=== PATIENT | male | born 1955 | race Caucasian/White ===

== ENCOUNTER 2024-06-23 22:14 | Emergency (ER) | payer SELFPAY ==
[2024-06-23 22:18] VITALS: BP 166/94
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
[2024-06-24 00:50] VITALS: BP 147/91
== END 2024-06-24 00:51 | disposition home or self-care (01) ==
LOC: EMR 22:14
PROVIDERS: EMERGENCY PHYSICIAN Emergency Medicine; FAMILY PHYSICIAN Nurse Practitioner Primary Care
DX: Z04.1 Encounter for examination and observation following transport accident (principal); V89.2XXA Person injured in unspecified motor-vehicle accident, traffic, initial encounter; I10 Essential (primary) hypertension; F17.200 Nicotine dependence, unspecified, uncomplicated; G82.20 Paraplegia, unspecified; Z99.3 Dependence on wheelchair
CPT/HCPCS: 99281

== ENCOUNTER 2024-07-06 12:09 | Emergency (ER) | payer OTHER, SELFPAY ==
[2024-07-06 12:11] VITALS: BP 157/88
[2024-07-06 12:51] LABS: % Basophils 0.7 % (0-2); % Eosinophils 6.3 % (0-6); % Immature Granulocytes 0.4 % (0-0.5); % Lymphocytes 11.8 % (20.5-51.1); % Neutrophils 73.8 % (42.2-75.2); Absolute Basophils 0.1 10^3/uL (0-0.2); Absolute Eosinophils 0.5 10^3/uL (0-0.7); Absolute Monocytes 0.6 10^3/uL (0.1-0.6); Absolute Neutrophils 6.3 10^3/uL (1.4-6.5); Hematocrit 34.8 % (39.0-52.0); Mean Corp Hgb Conc. 31.6 g/dL (33.0-37.0); Mean Corpuscular Hgb 25.5 pg (27.0-31.0); Mean Corpuscular Volume 80.6 fL (80.0-94.0); Mean Platelet Volume 9.3 fL (7.4-10.4); Nucleated Red Blood Cells % 0 % (-); Platelet Count 526 10^3/uL (130-400); Red Blood Cell Count 4.32 10^6/uL (4.70-6.10); Red Cell Dist. Width 17.9 % (11.5-14.5); White Blood Cell Count 8.5 10^3/uL (4.8-10.8)
[2024-07-06 13:06] LABS: ALT (SGPT) 11 U/L (0-50); AST (SGOT) 15 U/L (17-59); Albumin 3.4 g/dl (3.5-5.0); Alkaline Phosphatase 140 U/L (38-126); Blood Urea Nitrogen 15 mg/dl (9-20); Calcium 8.9 mg/dl (8.4-10.2); Carbon Dioxide 33 mmol/L (22-30); Chloride 97 mmol/L (98-107); Glucose 172 mg/dl (70-99); Potassium 3.9 mmol/L (3.5-5.1); Sodium 136 mmol/L (135-145); Total Bilirubin 0.6 mg/dl (0.2-1.3); Total Protein 6.5 g/dl (6.3-8.2); eGFR > 60.00
--- NOTE | 2024-07-06 14:34 | ED.GENMED ---
History of Present Illness
<Zohreh Correa PA-C - Last Filed: 07/06/24 22:50>
General
Chief Complaint: Musculo-Skeletal Complaint
Source: patient and family (Patient's nephew at bedside who lives with him)
Exam Limitations: none
Time Seen by Provider: 07/06/24 13:47
Nursing documentation reviewed up to this point in time: agreed with
History of Present Illness
History of Present Illness:
Patient is a 68-year-old male with history CAD, hypertension, diabetes presenting to the emergency room for evaluation of left lower leg pain. Patient essentially nonambulatory in wheelchair due to chronic bilateral lymphedema. Patient states that
he during attempted transfer last week he fell striking his left knee on the hardwood. He has had pain in left knee and left lower leg since. Patient denies any head strike or loss of conscious at that time.
Patient denies any numbness/tingling in left lower leg. He has not noticed any significant increase in swelling from his baseline as he does have chronic lymphedema. No fevers or chills.
He did state that he took 10 Advil prior to coming to the emergency department. He states that he took his 'somewhat woodwork '. He denies any SI/HI. It was discussed that this was too much to be taking it 1 time.
Past History
<Zohreh Correa PA-C - Last Filed: 07/06/24 22:50>
Past History
ED Past Medical History: CAD, COPD, HTN, Hypercholesterolemia, NIDDM and Other (Lymphedema)
ED Past Surgical History: Orthopedic (right hip replacement, Left tip of great toe amputated) and Other (Splenectomy)
Social History
Tobacco: Smoker
Alcohol: None
Personal:
Living: with family
Review of Systems
<Zohreh Correa PA-C - Last Filed: 07/06/24 22:50>
Review of Systems
Allergies reviewed?: Yes
All Other Systems: ROS reviewed and negative except as documented in HPI and ROS
Phy Exam
<Zohreh Correa PA-C - Last Filed: 07/06/24 22:50>
Physical Exam
Physical Exam:
Vitals: Patient's vital signs are stable
General: Patient is in no apparent distress
Skin: Warm and dry, no rashes or lesions
Head: Normocephalic, atraumatic
Eyes: Sclera nonicteric. EOMs intact. No nystagmus.
Throat: Protecting airway
Neck: Normal ROM, no cervical spine tenderness, no meningismus
Cardiac: Regular rate and rhythm, no murmurs.
Pulm: Normal respiratory effort, no wheezes, rales, rhonchi heard on exam.
Abdomen: No abdominal tenderness.
Extremities: Tenderness to proximal tibia with 2+ pitting edema of LLE. Palpable left DP pulse. No bony tenderness to left ankle or left hip. Sensation fully intact
Neuro: AAOx3. Grossly intact.
Psychiatric: Normal affect.
Course
<Zohreh Correa PA-C - Last Filed: 07/06/24 22:50>
Orders/Labs/Results
Orders:
Orders
07/06/24 12:27
Complete Blood Count/With Diff Urgent
Comprehensive Metabolic Panel Urgent
07/06/24 14:20
CR Knee - Left 1 Or 2 Views Urgent
Reason For Exam: fall, left knee pain
Tib/Fib, Left 2 View [CR Leg Tibia/fibula Left 2 Vw] Urgent
Comment:
Reason For Exam: fall, left lower leg pain
US Periph Venous LOWER Ext LT Urgent
Comment:
Reason For Exam: fall, LLE swelling
07/06/24 18:14
Hydrocodone 5/APAP 325 [[place] 5/325] 1 tablet PO NOW STA
Abnormal Lab Results
07/06/24
12:27
RBC 4.32 L 10^6/uL
(4.70-6.10)
Hgb 11.0 L g/dL
(13.0-18.0)
Hct 34.8 L %
(39.0-52.0)
MCH 25.5 L pg
(27.0-31.0)
MCHC 31.6 L g/dL
(33.0-37.0)
RDW 17.9 H %
(11.5-14.5)
Plt Count 526 H 10^3/uL
(130-400)
Absolute Lymphs (auto) 1.0 L 10^3/uL
(1.2-3.4)
Lymphocytes % 11.8 L %
(20.5-51.1)
Eosinophils % 6.3 H %
(0-6)
Chloride 97 L mmol/L
(98-107)
Carbon Dioxide 33 H mmol/L
(22-30)
Glucose 172 H mg/dl
(70-99)
AST 15 L U/L
(17-59)
Alkaline Phosphatase 140 H U/L
(38-126)
Albumin 3.4 L g/dl
(3.5-5.0)
07/06/24 12:27
07/06/24 12:27
Vital Signs
Initial and Last Documented VS:
Initial Vital Signs
Temp Pulse Resp BP Pulse Ox
97.5 F 72 18 157/88 97
07/06/24 12:11 07/06/24 12:11 07/06/24 12:11 07/06/24 12:11 07/06/24 12:11
Last Documented Vital Signs
Temp Pulse Resp BP Pulse Ox
97.5 F 87 18 176/95 96
07/06/24 12:11 07/06/24 19:44 07/06/24 19:44 07/06/24 19:44 07/06/24 19:44
<Faviola Dung, DO - Last Filed: 07/06/24 18:15>
Orders/Labs/Results
Orders:
Orders
07/06/24 12:27
Complete Blood Count/With Diff Urgent
Comprehensive Metabolic Panel Urgent
07/06/24 14:20
CR Knee - Left 1 Or 2 Views Urgent
Reason For Exam: fall, left knee pain
Tib/Fib, Left 2 View [CR Leg Tibia/fibula Left 2 Vw] Urgent
Comment:
Reason For Exam: fall, left lower leg pain
US Periph Venous LOWER Ext LT Urgent
Comment:
Reason For Exam: fall, LLE swelling
07/06/24 18:14
Hydrocodone 5/APAP 325 [[place] 5/325] 1 tablet PO NOW STA
Abnormal Lab Results
07/06/24
12:27
RBC 4.32 L 10^6/uL
(4.70-6.10)
Hgb 11.0 L g/dL
(13.0-18.0)
Hct 34.8 L %
(39.0-52.0)
MCH 25.5 L pg
(27.0-31.0)
MCHC 31.6 L g/dL
(33.0-37.0)
RDW 17.9 H %
(11.5-14.5)
Plt Count 526 H 10^3/uL
(130-400)
Absolute Lymphs (auto) 1.0 L 10^3/uL
(1.2-3.4)
Lymphocytes % 11.8 L %
(20.5-51.1)
Eosinophils % 6.3 H %
(0-6)
Chloride 97 L mmol/L
(98-107)
Carbon Dioxide 33 H mmol/L
(22-30)
Glucose 172 H mg/dl
(70-99)
AST 15 L U/L
(17-59)
Alkaline Phosphatase 140 H U/L
(38-126)
Albumin 3.4 L g/dl
(3.5-5.0)
07/06/24 12:27
07/06/24 12:27
Vital Signs
Initial and Last Documented VS:
Initial Vital Signs
Temp Pulse Resp BP Pulse Ox
97.5 F 72 18 157/88 97
07/06/24 12:11 07/06/24 12:11 07/06/24 12:11 07/06/24 12:11 07/06/24 12:11
Last Documented Vital Signs
Temp Pulse Resp BP Pulse Ox
97.5 F 87 18 176/95 96
07/06/24 12:11 07/06/24 19:44 07/06/24 19:44 07/06/24 19:44 07/06/24 19:44
Procedures
<Zohreh Correa PA-C - Last Filed: 07/06/24 22:50>
Splinting/Sling Placement
Left Leg:
Pre-splint extermity exam: neurovascular intact
Type of splint: posterior long leg
Splint material: fiberglass
Splint checked by provider?: Yes
Normal distal neurovascular exam?: Yes
<Zohreh Correa PA-C - Last Filed: 07/06/24 22:50>
MDM/Problems Addressed
Differential Diagnosis Includes:
Not limited to: Patellar fracture, tibial fracture, fibula fracture, DVT, ligamentous injury, EXTR
MDM/Problems Addressed:
60-year-old male presenting 1 week following mechanical fall with persistent left knee pain and swelling of left leg. Patient is wheelchair bound and only weightbears with transferring. There was no head strike or loss of consciousness associated
with fall. Patient is not on any blood thinners. Patient hypertensive on arrival likely secondary to pain. He is afebrile. Basic labs were initiated in triage without any clinically significant abnormalities. There is mild anemia although
appears around patient's baseline. On exam patient is resting comfortably with both knees in flexed position. Left lower extremity with edema and tenderness at proximal tibia. No tenderness of patella. Patient has very limited range of motion in
bilateral left knees likely secondary to chronic spasticity. Left lower extremity edema > right lower extremity. Will obtain x-rays of left knee and left tibia/fibula. Will check left lower extremity vascular ultrasound to rule out DVT. Will
closely monitor and reassess.
Update: Initial read of x-ray by me shows left tibial plateau/proximal tibial fracture. This case/x-ray images were reviewed with orthopedics, Dr. Groves. given patient is unable to extend at the knee�knee immobilizer not a current option. Patient
will be placed in posterior long-leg splint with stirrup and follow-up with orthopedics outpatient. Splint placed by me with assistance of RN. Patient tolerated procedure well with normal neurovascular exam after. Ultrasound fortunately without
any signs of DVT in LLE. Admission was offered for patient for PT/case management consult and acute rehab placement. Patient is adamant that he would like to go home and will not go to a rehab facility. Therefore patient will be discharged with
very close return precautions including any signs of worsening swelling, numbness/tingling, fevers, or other signs of infection. Patient advised to remain nonweightbearing with splint and follow closely with orthopedics. Patient verbalized
understanding. Patient stable for discharge.
Chronic conditions affecting care:
Hypertension
Acute Exacerbation and/or Progression of Chronic Illness:
Acutely hypertensive
<Zohreh Correa PA-C - Last Filed: 07/06/24 22:50>
*Radiology
Radiology exam reviewed: preliminary read by ED provider (X-ray read by me-proximal tibia/tibial plateau fracture) and radiology read reviewed
*Pulse Oximetry
Patient hypoxic: no
*EKG
Interpreted by ED Provider?: NA
*Analog Ic Design Architect Interpretation
Rate: Analog Ic Design Architect- N/A
*Critical Care Note
Total Time (30-74mins, 75-104mins- exclusive of procedures): Not Applicable
<Zohreh Correa PA-C - Last Filed: 07/06/24 22:50>
Patient Management
Discussion with other providers: [employer] (Orthopedics - Dr. Guerin)
Escalation/DeEscalation of care consider admission/obs:
Admission offered for PT/case management consult�patient declines will be discharged home with outpatient orthopedic follow-up
ED Attending Note
<Zohreh Correa PA-C - Last Filed: 07/06/24 22:50>
-
Portions of this chart may have been created with voice recognition software.� Occasional wrong word or��sound alike� substitutions may have occurred due to the inherent limitations of voice recognition software.
<Faviola Razo DO - Last Filed: 07/06/24 18:15>
ED Attending Note
ED Attending Note:
68-year-old male with history of chronic lymphedema and nonambulatory status presenting with left leg pain. Patient had a fall last week on the hardwood floor while transferring from his wheelchair. He notes increased swelling to the leg since the
fall. Denies numbness or tingling. Denies head injury. Vital signs are significant for mild hypertension.
On exam, patient is resting comfortably with legs both in flexed position at the knee joint. Bilateral lymphedema, however left greater than right with slight erythema distal to the knee. No neurovascular compromise. Plan for x-ray imaging to
rule out fracture. Limited range of motion secondary to chronic spasticity. Will also obtain DVT ultrasound given increased swelling.
X-ray is consistent with a tibial plateau sure. Difficult splinting given patient's chronic issues with range of motion. In discussion with orthopedics, plan for long-leg splint. Pending ultrasound with likely disposition home with outpatient
orthopedic follow-up
Discharge Plan
Departure
Patient Disposition: Home (Routine Discharge)
Date of Disposition: 07/06/24
Time of Disposition: 19:45
Patient with high blood pressure during this ER visit?: Yes
Condition: Good
Covid-19: Not Applicable
Discharge Problem:
Tibial plateau fracture, left, Fall
Instructions: Splint Care, Lower Leg Fracture ED, BLOOD PRESSURE
Prescriptions:
New
hydrocodone-acetaminophen 5-300 mg tablet
1 tab PO Q6H PRN (Reason: Pain) Qty: 7 0RF
No Action
cyclobenzaprine 10 MG tablet
10 mg PO TID
atorvastatin 20 MG tablet
20 mg PO DAILY
aspirin 81 MG tablet,chewable
81 mg PO DAILY
duloxetine 60 MG capsule,delayed release(DR/EC)
60 mg PO DAILY
metformin 500 mg tablet extended release 24 hr
1,000 mg PO BID@0800,1700
gabapentin 400 mg Capsule
1,200 mg PO TID Qty: 20 0RF
miconazole nitrate [Miconazorb AF] 2 % Powder
1 applic topical BID Qty: 85 0RF
bisacodyl 10 mg Suppository
10 mg [place] DAILYPRN PRN (Reason: constipation) Qty: 15 0RF
white petrolatum [Hydrophor] 42 % Ointment
1 applic topical DAILY Qty: 100 0RF
polyethylene glycol 3350 [HealthyLax] 17 gram Powder In Packet
17 g PO DAILY Qty: 30 0RF
sennosides-docusate sodium [Stool Softener-Stimulant Laxat] 8.6-50 mg Tablet
1 tab PO BID Qty: 30 0RF
nicotine 21 mg/24 hr Patch 24 Hour
21 mg transdermal DAILY Qty: 30 0RF
ferrous gluconate 324 mg (37.5 mg iron) tablet
324 mg PO DAILY Qty: 30 0RF
azithromycin [Zithromax] 250 mg tablet
250 mg PO DAILY Qty: 4 0RF
methylprednisolone [Medrol (Raghu)] 4 mg tablets,dose pack
See Rx Instructions .ROUTE .COMPLEX Qty: 21 0RF
Rx Instructions:
orally per package directions
Referrals:
Jose Guerin MD [Active] - Tomorrow
Memo Gonsalez DO [Family Provider] -
Activity Restrictions/Additional Instructions:
RETURN TO THE EMERGENCY DEPARTMENT WITH ANY FEVERS, CHEST PAIN, SHORTNESS OF BREATH/DIFFICULTY BREATHING, INTRACTABLE PAIN, NUMBNESS/TINGLING IN LOWER EXTREMITY, SIGNIFICANT WORSENING IN PAIN, OR ANY OTHER CONCERNS
-As discussed�you did suffer a fracture to your left tibia. You will need to remain nonweightbearing and in splint until cleared by orthopedics. You should contact them in the morning. The information is provided for you above.
-It is important that you continue to ice and elevate your left leg as often as possible. A prescription for Vicodin has been sent to your pharmacy. You should use this only for severe pain as it may cause drowsiness and increase your risk of
falls. Please be aware there is Tylenol in the Vicodin.
-You should discontinue any ibuprofen or NSAIDs for pain. You can take Tylenol as needed for breakthrough pain. You should not exceed 4000 mg of Tylenol per day.
-Follow-up with orthopedics as directed.
Monitor your symptoms closely return to the emergency department with any acute worsening/new symptoms or any other concerns.
Interventions
Interventions:
*Risk Screen - Suicide Last Done: 07/06/24 12:11
*General Assessment Last Done: 07/06/24 12:11
*Neglect/Abuse Screening Last Done: 07/06/24 12:11
ED- Fall Risk Assessment Last Done: 07/06/24 16:15
*Nursing Disposition Last Done: 07/06/24 20:08
ED-Musculoskeletal Assessment Last Done: 07/06/24 16:20
Discharge Date and Time
Discharge Date/Time: 07/06/24 20:08
Print Language: FAROESE
[2024-07-06 17:25] VITALS: BP 131/75
[2024-07-06] MEDS: NORCO 5/325 1 TABLET PO (18:39)
[2024-07-06 19:44] VITALS: BP 176/95
== END 2024-07-06 20:08 | disposition home or self-care (01) ==
LOC: EMR 12:09
PROVIDERS: Emergency Medicine; EMERGENCY PHYSICIAN Student in an Organized Health Care Education/Training Program; FAMILY PHYSICIAN Family Medicine
DX: S82.142A Displaced bicondylar fracture of left tibia, initial encounter for closed fracture (principal); R60.0 Localized edema; W18.39XA Other fall on same level, initial encounter; D64.9 Anemia, unspecified; I89.0 Lymphedema, not elsewhere classified; I25.10 Atherosclerotic heart disease of native coronary artery without angina pectoris; I10 Essential (primary) hypertension; E11.9 Type 2 diabetes mellitus without complications; E78.00 Pure hypercholesterolemia, unspecified; F17.200 Nicotine dependence, unspecified, uncomplicated; Z96.641 Presence of right artificial hip joint; Z99.3 Dependence on wheelchair; Z90.81 Acquired absence of spleen; Z79.82 Long term (current) use of aspirin
CPT/HCPCS: 99284; 29505; 73560; 73590; 80053; 85025; 93971

== ENCOUNTER 2024-07-22 05:12 | Inpatient (IN) | payer OTHER, SELFPAY ==
[2024-07-21 22:30] VITALS: BP 122/65
[2024-07-21 22:31] VITALS: BP 119/50
[2024-07-21 23:13] LABS: Hematocrit 30.7 % (39.0-52.0); Hemoglobin 9.9 g/dL (13.0-18.0); Mean Corp Hgb Conc. 32.2 g/dL (33.0-37.0); Mean Corpuscular Volume 77.5 fL (80.0-94.0); Mean Platelet Volume 9.2 fL (7.4-10.4); Platelet Count 320 10^3/uL (130-400); Red Blood Cell Count 3.96 10^6/uL (4.70-6.10); Red Cell Dist. Width 17.7 % (11.5-14.5); White Blood Cell Count 22.8 10^3/uL (4.8-10.8)
[2024-07-21 23:27] LABS: % Basophils 0.2 % (0-2); % Immature Granulocytes 0.5 % (0-0.5); % Lymphocytes 1.8 % (20.5-51.1); % Monocytes 3.3 % (1.7-9.3); % Neutrophils 94.2 % (42.2-75.2); Absolute Basophils 0.1 10^3/uL (0-0.2); Absolute Immature Granulocytes 0.1 10^3/uL (0-0.05); Absolute Lymphocytes 0.4 10^3/uL (1.2-3.4); Absolute Monocytes 0.8 10^3/uL (0.1-0.6); Absolute Neutrophils 21.5 10^3/uL (1.4-6.5); Nucleated Red Blood Cells % 0 % (-)
--- NOTE | 2024-07-21 23:58 | ED.GENMED ---
History of Present Illness
General
Chief Complaint: Weakness
Source: patient
Time Seen by Provider: 07/21/24 23:44
History of Present Illness
History of Present Illness:
This patient is a 68-year-old male paraplegic who presents emergency department with complaints of right lower extremity pain for the last 2 days. Pertinent medical history, patient states that he suffered a fracture of his left lower extremity in
the tib-fib area after a fall about a month ago. He has not had any further trauma or falls since then. He denies fever, chills, nausea, vomiting. He does describe dyspnea for the last day or 2 and denies chest pain, pressure, cough, sore throat,
rhinorrhea. His nephew who typically helps him at home has not been at home for about 24 hours, patient states he is very hungry as he has not been able to eat. He denies urinary symptoms, back pain, abdominal pain, or other complaints.
Past History
Past History
ED Past Medical History: CAD, COPD, HTN, Hypercholesterolemia, NIDDM and Other (Lymphedema, paraplegia)
ED Past Surgical History: Orthopedic (right hip replacement, Left tip of great toe amputated) and Other (Splenectomy)
Social History
Tobacco: Smoker
Alcohol: None
Drug: None
Living: with family
Phy Exam
Physical Exam
Physical Exam:
GENERAL: Alert , in no apparent distress
EYE: pupils equal and reactive, no photophobia
NECK: Supple, no significant adenopathy.
ENT: o/p clr, mm very dry
CARDIAC: Regular rate and rhythm .
LUNGS: Equal breath sounds bilaterally, no acute respiratory distress, no wheezes/rales however scattered rhonchi noted
ABDOMEN: Soft, without focal tenderness, no r/g
NEUROLOGICAL: Alert and oriented, no focal neuro deficits except for baseline paraplegia
SKIN: Warm and dry, skin intact. There is swelling redness and warmth noted at the right foot, tib-fib area extending proximally to the posterior aspect of the thigh and a more scattered distribution. No fluctuance, crepitus, open wound,
drainage, focal tenderness, or other abnormalities noted. This does not extend to the perineal area to suggest Esteban's
MUSCULOSKELETAL: Left lower extremity in long-leg cast, toes visible and appear well-perfused.
PSYCH: Normal and appropriate interaction.
Course
Orders/Labs/Results
Orders:
Orders
07/21/24 23:02
CMP [Comprehensive Metabolic Panel] Urgent
Complete Blood Count/With Diff Urgent
07/21/24 23:56
Cardiac Monitoring- Treatment ONCE
Urinalysis Reflex To Culture Urgent
Date Specimen was Collected: 07/22/24
Time Specimen was Collected: 00:03
07/21/24 23:57
EKG- Treatment ONCE
Lactic Acid Q4H
Comment: CANCEL 2nd LACTIC ACID IF 1st LACTIC ACID IS LESS THAN 2
Blood Culture Q30M
DRISS Source: Blood/Venous
Specimen Description:
07/22/24 00:00
CT Chest PE Study Urgent
Reason For Exam: sob, immobilization, fracture
07/22/24 00:14
Morphine Sulfate 4 mg IV NOW STA
07/22/24 00:28
Urine Microscopic Reflex Cult Urgent
Blood Culture Q30M
DRISS Source: Blood/Venous
Specimen Description:
Urine Culture Urgent
DRISS Source: U
Specimen Description:
Date Specimen was Collected: 07/22/24
Time Specimen was Collected: 00:03
0.9% Sodium Chloride 1000 ml [Nss] 1,000 ml IV BOLUS
07/22/24 00:30
Vancomycin [Vancocin] 1,500 mg 0.9% Sodium Chloride 500 ml [Nss] 500 ml IV NOW
07/22/24 00:32
US Periph Venous LOWER Ext RT Urgent
Comment:
Reason For Exam: swelling
07/22/24 00:56
Dextrose 50%-Water [Dextrose 50% Syringe] 25 grams IV NOW STA
07/22/24 01:00
Flush (0.9% Sodium Chloride) [Flush (Nss)] See Dose Instructions IV PER PROTOCOL
07/22/24 02:15
Vancomycin [Vancocin] 2,000 mg 0.9% Sodium Chloride 500 ml [Nss] 500 ml IV ONCE
07/22/24 04:41
Morphine Sulfate 2 mg IV NOW STA
07/22/24 04:43
Morphine Sulfate 4 mg .ROUTE .STK-MED ONE
07/22/24 04:52
Admit/Transfer Patient As Directed
Co-Sign Provider:
Level of Care: Inpatient admission
Assign to:: Medical/Surgical
Physician / Group: hospitalist
Diagnosis: cellulitis
Reason for Hospitalization: cellulitis
Expected length of stay greater than two midnights?: Yes
ELOS- Estimated Length of Stay in days: 2
I certify the patient meets the requirements for IP care: Yes
07/22/24 04:53
Code Status As Directed
Resuscitation Status: Full Code
PRN Pain Medication Management As Directed
May give lesser potent ordered pain med per pt: Yes
preference::
Protocol:: Medication orders for pain may be administered in a
manner that supports deferring to patient preference
when the pt is:
- Requesting an ordered lesser potent pain medication.
Least to most potent pain medications are defined
as: acetaminophen < NSAID < tramadol < opioids
(morphine, oxycodone, hydromorphone).
- Requesting a lesser dose of the same medication IF
ORDERED.
- Requesting a less intrusive route of administration
if both routes are prescribed by the provider (PO <
IV).
07/22/24 04:58
Potassium Chloride [KCl] 20 meq PO NOW STA
07/22/24 05:00
Potassium Chloride [KCl] 40 meq PO NOW STA
07/22/24 05:50
0.9% Sodium Chloride 1000 ml [Nss] 1,000 ml IV 100 mls/hr
Acetaminophen [Tylenol] 650 mg PO Q4HPRN PRN
Bisacodyl [Dulcolax] 10 mg RECTAL [id number] PRN
Docusate W/Senna [Senokot-S] 1 tablet PO BIDPRN PRN
Morphine Sulfate 4 mg IV Q4HPRN PRN
Ondansetron Injectable [Zofran] 4 mg IV Q6HPRN PRN
Oxycodone [Roxicodone] 5 mg PO Q4HPRN PRN
Polyethylene Glycol Powder [Miralax] 17 grams PO DAILYPRN PRN
07/22/24 05:50
Consult Notification Routine
Specialty to Notify: Infectious Disease
Date consulting provider notified: 07/22/24
Time consulting provider notified: 07:04
Notified:: Other
Comment: TT notification
INFECTIOUS DISEASE CONSULT Routine
Consulting Provider: Chente Montoya
Was physician already notified: No
Reason for consult: RLE cellulitis, diabetes
Activity As Directed
Activity Level: With Assistance
Bedside Glucose Monitoring As Directed
Frequency: AC&HS
Elevate Extremity As Directed
Extremity:: right leg
Elevate with:: Pillow
Frequency: At all times
Vital Signs As Directed
Frequency: Per unit guidelines
DX Deep Vein Thrombosis Video Routine
07/22/24 Breakfast
1800 calorie (15 carb) Diabetic
At Your Request: Limited Participation
Does patient need a safe tray?: No
Basic Metabolic Panel IN AM
Complete Blood Count/No Diff IN AM
Hemoglobin A1c [Glycohemoglobin (HgbA1c)] IN AM
Magnesium IN AM
07/22/24 07:30
Insulin Aspart Corrective Low [Novolog Flexpen-Low Resistance] See Protocol SC AC
07/22/24 08:00
Aspirin Chewable [Low Strength Aspirin] 81 mg PO DAILY
Atorvastatin [Lipitor] 20 mg PO DAILY
Metformin Extended Release [Glucophage Xr Extended Release] 1,000 mg PO BID@0800,1700
07/22/24 18:00
Enoxaparin Sodium [Lovenox] 40 mg SC QPM
Abnormal Lab Results
07/21/24 07/22/24 07/22/24
23:02 00:28 00:54
WBC 22.8 H 10^3/uL
(4.8-10.8)
RBC 3.96 L 10^6/uL
(4.70-6.10)
Hgb 9.9 L g/dL
(13.0-18.0)
Hct 30.7 L %
(39.0-52.0)
MCV 77.5 L fL
(80.0-94.0)
MCH 25.0 L pg
(27.0-31.0)
MCHC 32.2 L g/dL
(33.0-37.0)
RDW 17.7 H %
(11.5-14.5)
Abs Immat Gran (auto) 0.1 H 10^3/uL
(0-0.05)
Absolute Neuts (auto) 21.5 H 10^3/uL
(1.4-6.5)
Absolute Lymphs (auto) 0.4 L 10^3/uL
(1.2-3.4)
Absolute Monos (auto) 0.8 H 10^3/uL
(0.1-0.6)
Neutrophils % 94.2 H %
(42.2-75.2)
Lymphocytes % 1.8 L %
(20.5-51.1)
Sodium 128 L mmol/L
(135-145)
Potassium 3.3 L mmol/L
(3.5-5.1)
Chloride 95 L mmol/L
(98-107)
Carbon Dioxide 21 L mmol/L
(22-30)
BUN 26 H mg/dl
(9-20)
Glucose 51 L* mg/dl
(70-99)
Calcium 7.8 L mg/dl
(8.4-10.2)
Alkaline Phosphatase 154 H U/L
(38-126)
Total Protein 6.0 L g/dl
(6.3-8.2)
Albumin 3.0 L g/dl
(3.5-5.0)
Ur Occult Blood Reflex 3+ A
(Negative)
Urine RBC 7-10 A /HPF
(0-2)
Urine Bacteria (Reflex) Many A
(Negative)
POC Glucose 54 L* mg/dl
(70-99)
07/22/24
01:16
WBC
RBC
Hgb
Hct
MCV
MCH
MCHC
RDW
Abs Immat Gran (auto)
Absolute Neuts (auto)
Absolute Lymphs (auto)
Absolute Monos (auto)
Neutrophils %
Lymphocytes %
Sodium
Potassium
Chloride
Carbon Dioxide
BUN
Glucose
Calcium
Alkaline Phosphatase
Total Protein
Albumin
Ur Occult Blood Reflex
Urine RBC
Urine Bacteria (Reflex)
POC Glucose 496 H* mg/dl
(70-99)
07/21/24 23:02
07/21/24 23:02
Vital Signs
Initial and Last Documented VS:
Initial Vital Signs
Temp Pulse Resp BP Pulse Ox
97.7 F 91 18 122/65 99
07/21/24 22:30 07/21/24 22:30 07/21/24 22:30 07/21/24 22:30 07/21/24 22:30
Last Documented Vital Signs
Temp Pulse Resp BP Pulse Ox
98.2 F 96 18 116/68 97
07/23/24 07:20 07/23/24 12:00 07/23/24 12:00 07/23/24 12:00 07/23/24 11:45
*Critical Care Note
Total Time (30-74mins, 75-104mins- exclusive of procedures): Not Applicable
Update Note
Update Note:
Patient presents to the Emergency Department with ___shortness of breath and leg pain
Number and Complexity of Problems Addressed at the Encounter
� Chronic conditions affecting care:
� Acute Exacerbation and/or Progression of Chronic Illness:
� Differential Diagnosis includes: But not limited to cellulitis, abscess, pneumonia, bronchitis, etc. etc.
Amount and/or Complexity of Data to be Reviewed and Analyzed
� I performed an independent evaluation of and my interpretation is:
EKG: Read by me, normal sinus rhythm, LAD, no acute ischemia
CT:read by vision,m no pe, small bilat pl effusion, no throacici aneurysm or dissection.
Xrays:
Laboratory Studies: Markedly elevated white blood cell count with left shift, relatively baseline anemia. BUN elevation likely related to prerenal azotemia/dehydration. Mild hyponatremia.
Other:us verbal report neg dvt R LE
� Review of other/old records reveals:
� Clinical information was obtained by an independent historian:
� Prescriptions/Medications Considered but not given:
� Further testing considered but not performed:
Risk of Complications and/or Morbidity or Mortality of Patient Management
� Social determinants of health affecting care:
� Discussion with other providers (PCP, Hospitalists, Consultants, etc):
� Escalation of care including admission/observation vs risk of discharge considered: Note patient noted to be hypoglycemic, given juice and a box lunch. Repeat blood sugar remains low at 54. Amp of D50 ordered will continue to
monitor closely.
Repeat bs elevated at 496. Pt resting comfortably. Will monitor closely, avoid insulin now given recent swings in sugar, risk of preciptating hypogylcemia.
Will admit, abx, ivf. TT to hospitalst (Dr Abbott). Bp stable, pt resting comfortably, not septic.
ED Attending Note
-
Portions of this chart may have been created with voice recognition software.� Occasional wrong word or��sound alike� substitutions may have occurred due to the inherent limitations of voice recognition software.
Discharge Plan
Departure
Patient Disposition: Admit
Date of Disposition: 07/22/24
Time of Disposition: 01:49
Presentation/result/management discussed w/ accepting MD/DO: Hospitalist
Condition: Fair
Discharge Problem:
Cellulitis, Hypoglycemia
Interventions
Interventions:
*Risk Screen - Suicide Last Done: 07/21/24 22:34
*General Assessment Last Done: 07/21/24 22:34
*Neglect/Abuse Screening Last Done: 07/21/24 22:34
ED- Fall Risk Assessment Last Done: 07/21/24 23:57
*ED COVID-19 Vaccine History Last Done: 07/21/24 22:34
*Nursing Disposition Last Done: 07/22/24 14:00
ED- Cardiac Assessment Last Done: 07/22/24 03:50
ED- Neurological Assessment Last Done: 07/22/24 03:50
ED- Pulmonary Assessment Last Done: 07/22/24 03:50
Discharge Date and Time
Discharge Date/Time: 07/22/24 14:00
[2024-07-22] VITALS (27 sets, daily range): BP systolic 80–139; BP diastolic 40–113; BMI 28.9
[2024-07-22] MEDS: MORPHINE SULFATE 4 MG IV ×4 (00:23→22:59)
[2024-07-22 00:24] LABS: ALT (SGPT) 28 U/L (0-50); AST (SGOT) 49 U/L (17-59); Alkaline Phosphatase 154 U/L (38-126); Blood Urea Nitrogen 26 mg/dl (9-20); Calcium 7.8 mg/dl (8.4-10.2); Carbon Dioxide 21 mmol/L (22-30); Chloride 95 mmol/L (98-107); Glucose 51 mg/dl (70-99); Potassium 3.3 mmol/L (3.5-5.1); Sodium 128 mmol/L (135-145); Total Bilirubin 0.9 mg/dl (0.2-1.3); eGFR > 60.00
[2024-07-22 00:39] LABS: Urine Albumin Trace (Neg - Trace); Urine Bilirubin Negative (Negative); Urine Character Clear (Clear); Urine Color Yellow; Urine Glucose Negative (Negative); Urine Ketone Negative (Negative); Urine Leukocyte Negative (Negative); Urine Nitrite Negative (Negative); Urine Occult Blood 3+ (Negative); Urine Urobilinogen 1+ (Neg - 1+)
[2024-07-22] MEDS: NSS 1000 IV ×3 (00:51→14:47)
[2024-07-22 00:56] LABS: Glucose - Point of Care 54 mg/dl (70-99)
[2024-07-22] MEDS: DEXTROSE 50% SYRINGE 25 GRAMS IV (00:59)
[2024-07-22 01:01] LABS: Urine Amorphous Seen; Urine Granular Cast >15 /LPF (0); Urine Mucus Moderate; Urine Squamous Cell >30 /LPF (Few)
[2024-07-22 01:02] LABS: Lactic Acid 1.4 mmol/L (0.7-2.0); Urine Bacteria Many (Negative)
[2024-07-22 01:17] LABS: Glucose - Point of Care 496 mg/dl (70-99)
[2024-07-22] MEDS: VANCOCIN 540 MG IV (02:05)
--- NOTE | 2024-07-22 02:24 | HPS.HSE ---
Family Physician
-
Family Physician: Memo Gonsalez
Chief Complaint
-
Right leg swelling
History of Present Illness
This is a 68-year-old with past medical history significant for zdz-yvnqhra-vfevkatzn diabetes, chronic lymphedema, hyperlipidemia, smoking history presenting to the emergency department with approximately 2 days of right lower extremity pain.
He denies any recent injury. He reported that he suffered a left lower extremity injury a month ago following a fall. He had a tib-fib area fracture at the time. He reports acute onset of this pain wit chronic swelling. He denies having fevers or
chills.
He reports some dyspnea but denies chest pain, pressure, cough, sore throat or runny nose.
In the emergency department he was afebrile with a temp of 97.7, blood pressure was 113/96 with a pulse of 98 satting 94% on room air. CBC was notable for a white count of 22,000, hemoglobin was stable at 9.9 with normal platelet count.
Electrolytes notable for a sodium of 128, potassium 3.3, and a glucose of 51. He had 1 amp of D50 with a repeat fingerstick glucose of 490.
CT of the chest was negative for PE. He has trace bilateral pleural effusions and centrilobular emphysema. Lower extremity ultrasound pending.
Medical History
Past Medical History
Past Medical History: Reports CAD, COPD, Hypercholesterolemia, NIDDM and Other (Chronic lymphedema)
Past Surgical History: Reports Orthopedic (Right total hip arthroplasty, ) and Other (Splenectomy)
Additional Past Surgical History:
Left great toe distal phalange amputation
Social History
Tobacco: Smoker
Alcohol: None
Personal: Single
Living: With Family
Family History
Family History: Not pertinent
Allergies / Home Medications
Allergies reflects when Allergies were last updated in [employer].
Home Medications with original date entered in [employer]
Allergy/Medication List:
Allergies
Allergy/AdvReac Type Severity Reaction Status Date / Time
No Known Allergies Allergy Verified 07/08/23 14:38
Home Medications
aspirin 81 mg chewable tablet 81 mg PO DAILY Blood clot prevention/tx 11/12/20
atorvastatin 20 mg tablet 20 mg PO DAILY High cholesterol 11/12/20
metformin 500 mg tablet,extended release 24 hr 1,000 mg PO BID@0800,1700 Diabetes 05/12/23
Review of Systems
-
History Source: Patient
Constitutional: Reports No Symptoms
EENT: Reports No Symptoms
Respiratory: Reports No Symptoms
Cardiac: Reports No Symptoms
Abdomen/GI: Reports No Symptoms
: Reports No Symptoms
Musculoskeletal: Reports No Symptoms, Joint Swelling and Edema
Skin: Reports Rash
Neurological: Reports No Symptoms
Endocrine: Reports No Symptoms
Hematologic/Lymphatic: Reports No Symptoms
Psych: Reports No Symptoms
Physical Exam
Vital Signs
Vital Signs
Temp Pulse Resp BP Pulse Ox
97.7 F 98 20 113/96 94
07/21/24 22:31 07/22/24 01:47 07/22/24 01:47 07/22/24 01:00 07/22/24 01:47
Physical Exam
General: Appears in Distress, Pain and Appears Chronically Ill
HEENT: NormoCephalic, Anicteric, Moist mucous membranes and Atraumatic
Respiratory: Clear
Cardiac: S1/S2, Regular Rhythm and Tachycardia
GI: Soft, Non Tender and Non Distended
Rectal: Deferred by Provider
Genito-urinary: Deferred by me
Musculoskeletal: No Clubbing, No Cyanosis, Edema, Left Lower Extremity (wrapped in chandu-bandage) and Edema, Right Lower Extremity (2+ edema)
Skin: Warm and Rash (erythematous patch from feet to knee with scales, induration and tenderness to palpation. Small erythematous papules spreading up to the groin with inguinal rash and scrotal erythema w/o edema.)
Neuro: AO x 3
Hematologic/Lymphatic: No Lymphadenopathy
Psych: Calm
Laboratory Results
-
07/21/24 23:02
07/21/24 23:02
Laboratory Results
Lactic Acid Cancelled 07/22/24 03:57
Total Bilirubin 0.9 mg/dl (0.2-1.3) 07/21/24 23:02
AST 49 U/L (17-59) 07/21/24 23:02
ALT 28 U/L (0-50) 07/21/24 23:02
Alkaline Phosphatase 154 U/L (38-126) H 07/21/24 23:02
Data Reviewed
-
CT Scan: Report Reviewed by me
Ultrasound: Report Reviewed by me
Lab Data: Labs Reviewed by me
Old Records: Reviewed
Impression/Plan
-
IMPRESSION:
68 y.o male with paraplegia, diabetes and hyperlipidemia coming in with pain, redness and swelling of the RLE x 2 days. Afebrile. Has leukocytosis with normal lactic acid level. DVT study is negative. Suspect cellulitis in patient with chronic
lymphedema. The right foot is particularly tender and swollen. Suspect superimposed fungal dermatitis in the proximal right leg, inguinal and scrotal regions
PLAN:
1. Cellulitis - Severe and moderately extensive
- admit to med/surg
- blood cultures sent
- IV vancomycin for now, obtain mrsa swab
- ID consultation
2. Lymphedema -
- treat cellulitis
- keep elevated
- when improved skin lesion, will also need chandu-bandage wrapping
3. Fungal rash
- start topical fungal cream
4. Hyperglycemia - Was initially hypoglycemic as not eating. S/p D50 x 1, gluc 500, now 80 w/o intervention. Not on insulin
- check a1c
- holding metformin, sliding scale achs
- dextrose gtt if falls below 60 as he means persistently hypoglycemic.
5. Hyponatremia - suspect hypovolemic with chronic lymphedema.
- IV NS bolus and re-evaluate
- IV NS + 20 K at 120 ml/hr
DVT PPX - lovenox sq
Code status - full code
[2024-07-22] MEDS: MORPHINE SULFATE 2 MG IV (04:53)
[2024-07-22 05:59] LABS: Glucose - Point of Care 88 mg/dl (70-99)
[2024-07-22 06:12] LABS: Hematocrit 30.7 % (39.0-52.0); Hemoglobin 9.9 g/dL (13.0-18.0); Mean Corp Hgb Conc. 32.2 g/dL (33.0-37.0); Mean Corpuscular Hgb 25.1 pg (27.0-31.0); Mean Corpuscular Volume 77.7 fL (80.0-94.0); Mean Platelet Volume 9.7 fL (7.4-10.4); Platelet Count 302 10^3/uL (130-400); Red Blood Cell Count 3.95 10^6/uL (4.70-6.10); Red Cell Dist. Width 17.9 % (11.5-14.5); White Blood Cell Count 23.3 10^3/uL (4.8-10.8)
[2024-07-22 06:29] LABS: Blood Urea Nitrogen 24 mg/dl (9-20); Calcium 7.8 mg/dl (8.4-10.2); Carbon Dioxide 24 mmol/L (22-30); Chloride 97 mmol/L (98-107); Estimated Creatinine Clearance 91 ml/min; Glucose 76 mg/dl (70-99); Magnesium 1.5 mg/dl (1.6-2.3); Potassium 3.4 mmol/L (3.5-5.1); Sodium 131 mmol/L (135-145); eGFR > 60.00
[2024-07-22] MEDS: KCL 40 MEQ PO (06:30)
--- NOTE | 2024-07-22 07:18 | EDRN ---
Non Par Diet tray ordered. TT sent to infectious disease television news anchor MD and received for consult. Pharmacy called to dose vancomycin as ordered at this time.
[2024-07-22 08:13] LABS: Glucose - Point of Care 93 mg/dl (70-99)
[2024-07-22] MEDS: MYCOSTATIN CREAM 1 APPLIC TOPICAL ×2 (08:21→21:00)
[2024-07-22] MEDS: LIPITOR 20 MG PO (08:22)
[2024-07-22] MEDS: LOW STRENGTH ASPIRIN 81 MG PO (08:22)
[2024-07-22] MEDS: NOVOLOG FLEXPEN-LOW RESISTANCE SC ×2 (08:27→16:46)
--- NOTE | 2024-07-22 09:01 | EDRN ---
This RN TT'd Dr. Mckeon who is assigned to pt about new order for potassium. Pt had potassium drawn at 6 am and was 3.4 but had received 40 flash potassium at 6;30 am.
--- NOTE | 2024-07-22 09:15 | PHA.VAN.IN ---
Assessment
- Assessment
Renal Function: Appears similar to baseline
- Previous Dosing Experience
Previous Regimen: VANCO 1500MG Q12
Date of Regimen: 11/2020
Provided Trough of: 18
Provided AUC of: 553
Patient's SCR is: Similar to previous dosing experience
Patient's weight is: Decreased compared to previous dosing experience
AUC Dosing Plan
- Dosing Variables
Dosing Weight (kg): 102
Dosing CrCl (ml/min): 91
Vd coefficient (L/kg): 0.7
- Empiric Dosing
Initial / Loading Dose: VANCO 2000MG X1
Maintenance Regimen: VANCO 1250MG Q12
Estimated AUC (mcg*h/mL): 464
Estimated Peak (mcg*h/mL): 28.4
Estimated Trough (mcg/ml): 12.3
Estimated Half Life (H): 8.7
- Monitoring
No levels ordered at this time: CONSIDER LEVEL PRIOR TO 4TH MAINTENANCE DOSE
Pharmacokinetics Vancomycin I
- -
Patient Age: 68
Patient Sex: Male
Vancomycin Day #: 1
Indication: Skin And Soft Tissue
Requesting Provider: DR. BARAJAS
Height / Weight:
Height 6 ft 2 in
Actual Weight 102 kg
IBW in k.2
Adjusted BW in k.1
Pertinent Past Medical History: DM, CHRONIC LYMPHEDEMA
- Vital Signs / Lab Results
Temp Pulse Resp BP Pulse Ox
98.9 F 116 22 100/42 95
07/22/24 06:15 07/22/24 09:00 07/22/24 09:00 07/22/24 09:00 07/22/24 09:00
Lab Results - Hematology
07/21/24 07/22/24
23:02 06:00
WBC 22.8 H 23.3 H
Lab Results - Chemistry
07/21/24 07/22/24
23:02 06:00
BUN 26 H 24 H
Creatinine 0.9 0.9
Estimated Creat Clear 91
Albumin 3.0 L
07/22/24 07/22/24
00:28 03:57
Lactic Acid 1.4 Cancelled
Lab Results - Urine
07/22/24
00:28
Urine Nitrite (Reflex) Negative
Leukocyte Esterase Rfl Negative
Urine WBC (Reflex) 6-10
Ur Squamous Epith Cells >30
Urine Bacteria (Reflex) Many A
[2024-07-22] MEDS: MAGNESIUM SULFATE 100 IV (09:24)
--- NOTE | 2024-07-22 09:28 | EDRN ---
Pt states pain is unchanged though pt is no longer rocking and moaning in pain.
[2024-07-22] MEDS: ROXICODONE 5 MG PO ×2 (09:46→19:13)
--- NOTE | 2024-07-22 10:06 | EDRN ---
Dr. Mckeon in room w/pt at this time.
--- NOTE | 2024-07-22 10:18 | EDRN ---
Pt fed diet tray w/ pancakes cut up for pt and coffee prepared as pt requested.
[2024-07-22] MEDS: NEURONTIN 300 MG PO (10:29)
--- NOTE | 2024-07-22 10:48 | EDRN ---
Dr. Montoya (infectious diseases) in room w /pt at this time.
--- NOTE | 2024-07-22 11:22 | EDRN ---
Pt remains in pain, unable to turn or move either leg. Pain remains 10/10, (pt states 12/10). Pt remains moaning and rocking in pain. CPK level ordered as an ad on. Dr. Montoya unable to observe pt's leg and requested that this RN text him when pt
can move.
[2024-07-22 11:30] LABS: Creatine Phosphokinase 429 U/L (55-170)
--- NOTE | 2024-07-22 11:30 | W.PN.UPDATE ---
Update Note
Progress Note Update
I saw and examined the patient.
The DIRECTOR OF PATIENT SAFETY's note was reviewed and I agree with the note.
Comment:
Patient states of significant amount of pain. Patient crying in pain.
Neuro patient received pain medication earlier today. Pain seems out of proportion even with touch to the right leg.
General: Appears in Distress, Pain and Appears Chronically Ill
HEENT: NormoCephalic, Anicteric, Moist mucous membranes and Atraumatic
Respiratory: Clear
Cardiac: S1/S2, Regular Rhythm and Tachycardia
GI: Soft, Non Tender and Non Distended
Rectal: Deferred by Provider
Genito-urinary: Deferred by me
Musculoskeletal: No Clubbing, No Cyanosis, Edema, Left Lower Extremity (wrapped in chandu-bandage/Cast) and Edema, Right Lower Extremity (2+ edema)
Skin: Warm and Rash (erythematous patch from feet to knee with scales, induration and tenderness to palpation. Small erythematous papules spreading up to the groin with inguinal rash and scrotal erythema w/o edema.)
Neuro: AO x 3
Hematologic/Lymphatic: No Lymphadenopathy
Psych: Calm
IMPRESSION:
68 y.o male with paraplegia, diabetes and hyperlipidemia coming in with pain, redness and swelling of the RLE x 2 days. Afebrile. Has leukocytosis with normal lactic acid level. DVT study is negative. Suspect cellulitis in patient with chronic
lymphedema. The right foot is particularly tender and swollen. Suspect superimposed fungal dermatitis in the proximal right leg, inguinal and scrotal regions
PLAN:
Cellulitis - Severe and moderately extensive
sepsis-poa
-blood cultures sent
-IV vancomycin for now, obtain mrsa swab
-IV cefazolin and clindamycin added by infectious disease
-Pain seems out of proportion and concern for possible myositis versus necrotizing fasciitis
-will obtain right lower extremity CT angiogram
-Cont patient on IV fluids
-Pain control with PO/IV regimen
-General Surgery consulted
ID consultation
Lymphedema -
- treat cellulitis
- keep elevated
- when improved skin lesion, will also need chandu-bandage wrapping
Fungal rash
- start topical fungal cream
Hyperglycemia - Was initially hypoglycemic as not eating. S/p D50 x 1, gluc 500, now 80 w/o intervention. Not on insulin
- check a1c
- holding metformin, sliding scale achs
- dextrose gtt if falls below 60 as he means persistently hypoglycemic.
Hyponatremia - suspect hypovolemic with chronic lymphedema.
- IV NS bolus and re-evaluate
- IV NS + 20 K at 120 ml/hr
Left tibula-fibula fracture
-cast remains
-wheelchair bound currently
DVT PPX - lovenox sq
Code status - full code
--- NOTE | 2024-07-22 11:30 | EDRN ---
Diet tray ordered at this time for pt of turkey sandwich w/ greek, lettuce, tomato, + mustard on white bread and an apple juice.
--- NOTE | 2024-07-22 11:36 | CON.ID ---
Consultation
-
Date/Time Consultation Requested: 07/22/2024 0550
Date/Time Consultation Performed: 07/22/2024 1036
Requesting Provider: Dr. Abbott
Performing Provider: Dr. Montoya
Reason for Consultation: Right lower extremity cellulitis
Chief Complaint / Past History
History of Present Illness
Max Contreras is a 68-year-old man being evaluated regarding right lower extremity cellulitis. History is obtained from chart review, along with patient interview.
The patient presented to the ER on 07/06/2024 secondary to left lower extremity pain. He is nonambulatory secondary to longstanding bilateral lower extremity lymphedema, and at that time noted that he had fallen a week prior and struck his left knee
on the hardwood. Workup in the ER revealed a left tibial plateau fracture, and the patient was splinted, to follow-up as an outpatient with Orthopedics.
He returns on 07/21/2024 secondary to right lower extremity pain which he reports has been going on for approximately the past 5 days. He denies any recent trauma to the area. He notes progressive erythema and swelling of the leg, with severe pain
at the present time. Workup in the ER has revealed a leukocytosis. Infectious Diseases is asked to comment upon further antimicrobial therapy.
At present, he notes severe pain. He denies any prior fevers or chills. He notes that the pain is both on the skin and deeper into the leg, and extends from the knee area down into the foot. He notes limited range of motion at baseline of the
leg. Patient has a history of splenectomy and is not sure about any prior vaccines specific to that diagnosis.
Past History
Additional Past Medical History:
CAD
HTN
DM
COPD
Dyslipidemia
Chronic bilateral lower extremity lymphedema
Additional Past Surgical History:
Right hip replacement
Left toe surgery
Hx splenectomy
Allergy History:
No Known Allergies Allergy (Verified 07/08/23 14:38)
Medications Reviewed: Yes
Current Antibiotics:
Vancomycin (dosing per pharmacy)
Social History
Tobacco: Smoker (1/2 pack/day)
Alcohol: None
Drug: None
Personal:
Living: With Family
Employment: Not Employed
Family History
Family History: Not Pertinent
Review of Systems
Vital Signs
Temp Pulse Resp BP Pulse Ox
98.9 F 113 24 109/40 91
07/22/24 06:15 07/22/24 11:15 07/22/24 11:15 07/22/24 11:00 07/22/24 11:15
Physical Exam
Physical Exam
Constitutional: Acutely Ill, Chronically Ill and Non-toxic
Head: Normocephalic
Eyes: Pupils Equal, Pupils Round, No Conjunctival Hemorrhage and Sclera Anicteric
Pharynx: Benign
Oral: Poor Dentition, No Thrush and No Ulcers
Cardiovascular: Regular Rate and S1/S2; Negative S3/S4
Pulmonary: Clear and Non Labored; Negative Wheezes, Rales or Rhonchi
Gastrointestinal: Soft, Non Tender, Non Distended, Normal Bowel Sounds, No Rebound and No Guarding
Genito-Urinary: Negative Jesus
Extremities: Edema (Right lower extremity), Erythema (Right lower extremity from distal knee area to toes), Calf Swelling and Pulses
Musculoskeletal: Other (Left leg splinted and an Ronan wrap. Positive lymphedema noted.); Negative Joint Effusion
Skin: Warm and Dry
Neurological: Awake and Alert
Psychological: Calm
Lab / Diagnostic Study Results
07/22/24 06:00
07/22/24 06:00
Abs Immat Gran (auto) 0.1 10^3/uL (0-0.05) H 07/21/24 23:02
Absolute Neuts (auto) 21.5 10^3/uL (1.4-6.5) H 07/21/24 23:02
Absolute Lymphs (auto) 0.4 10^3/uL (1.2-3.4) L 07/21/24 23:02
Absolute Monos (auto) 0.8 10^3/uL (0.1-0.6) H 07/21/24 23:02
Absolute Basos (auto) 0.1 10^3/uL (0-0.2) 07/21/24 23:02
Immature Gran % 0.5 % (0-0.5) 07/21/24 23:02
Neutrophils % 94.2 % (42.2-75.2) H 07/21/24 23:02
Lymphocytes % 1.8 % (20.5-51.1) L 07/21/24 23:02
Monocytes % 3.3 % (1.7-9.3) 07/21/24 23:02
Eosinophils % 0.0 % (0-6) 07/21/24 23:02
Basophils % 0.2 % (0-2) 07/21/24 23:02
Lactic Acid Cancelled 07/22/24 03:57
Ur Squamous Epith Cells >30 /LPF (Few) 07/22/24 00:28
Microbiology Results
Micro:
07/22/24 00:28 Urine Culture - Pending
Urine
07/22/24 00:28 Blood Culture - Pending
Blood/Venous
07/22/24 00:28 Blood Culture - Pending
Blood/Venous
Imaging:
07/22/2024 Duplex ultrasound right lower extremity: Limited examination secondary to patient curled in position. Calf veins could not be assessed. No evidence of femoral/popliteal deep venous thrombosis. Please see full dictation for
additional detail.
07/22/2024 CT chest (PE study): No evidence of pulmonary embolism. Small right and trace left pleural effusion. Minor atelectasis noted. No evidence of pneumonia. Emphysematous changes noted.
Assessment / Plan
Severe right lower extremity cellulitis
Leukocytosis
Severe right lower extremity pain
Elevated CK
Tobacco abuse
CAD
HTN
DM
COPD
Dyslipidemia
Chronic bilateral lower extremity lymphedema
Recommendations:
At present, degree of pain that the patient is experiencing seems out of proportion to physical findings.
Continue with vancomycin for coverage of MRSA. Follow levels closely to prevent nephrotoxicity.
Will broaden antibiotics with the addition of cefazolin, along with initiation of clindamycin as a toxin inhibitor in case of group A strep infection.
Recommend additional imaging with CT of the lower extremity.
Although the calf is soft, and no evidence of compartment syndrome, may consider evaluation by General Surgery regarding possible necrotizing fasciitis.
Continue to monitor white count and temperature curve.
Lower extremity elevation as is possible.
Follow pending cultures
Further recommendations as additional data is returned.
Care Review
Plan reviewed with: Physician (Hospitalist)
--- NOTE | 2024-07-22 11:40 | EDRN ---
Pt turned onto R side using pillow and air cushion to support both legs at this time.
[2024-07-22] MEDS: DILAUDID 1 MG IV ×2 (11:55→17:07)
[2024-07-22 12:38] LABS: Glucose - Point of Care 156 mg/dl (70-99)
--- NOTE | 2024-07-22 12:40 | EDRN ---
Pt is calling out, moaning and rocking in pain once again. Dilaudid 1 mg was administered around 12 noon. Pt does have elevated CK 429, will TT both Dr. Montyoa and Linda.
--- NOTE | 2024-07-22 12:52 | EDRN ---
Report called to Bernarda Murillo RN in 1 acute at this time.
[2024-07-22] MEDS: ANCEF 10 IV ×2 (13:00→20:59)
[2024-07-22] MEDS: NOVOLOG FLEXPEN-LOW RESISTANCE 1 UNITS SC (13:21)
[2024-07-22] MEDS: CLEOCIN 50 IV ×2 (13:30→21:00)
--- NOTE | 2024-07-22 13:30 | EDRN ---
Dr. Higuera w/ [facility] were in room w/ pt at this time to evaluate R leg.
--- NOTE | 2024-07-22 14:40 | PTCARENOTE ---
admitted from ED, awake and makes needs known c/o pain 9/10 in r leg. r lower leg is red swollen and hot to touch. patient transferred from the stretcher with 2 person assistance. VS taken and BP 80s/40s. MD notified and ordered IVF bolus. patient
BP responded to IVF. cont to monitor BP. NPO orders noted. patient came from ER with boxed lunch provided and was observed eating a sandwich. incontinent of urine. perineal care completed. orders for IMU transfers noted. tele monitor applied and
patient is in sinus tach. will cont to monitor
[2024-07-22] MEDS: ProAmatine 10 MG PO (14:47)
--- NOTE | 2024-07-22 15:08 | CON.GS ---
Addendum entered and electronically signed by Jesus Higuera MD 07/22/24 16:18:
Patient seen and examined with surgical GAS DISTRIBUTION SUPERVISOR. Agree with documented consultation note.
HPI: 68-year-old male who is in his current acute state of illness is a limited historian. Reviewing medical records he recently was diagnosed with a tibial plateau fracture which was splinted. This occurred after a fall which subsequently
prompted emergency department evaluation on 07/06/2024. Patient is nonambulatory at baseline which on review of medical records is attributed to longstanding bilateral lower extremity lymphedema.
Presents today secondary to acute deterioration of right lower extremity pain. Symptoms have been going on for a few days with progressive redness, swelling and now severe pain. No fevers chills or sweats. Pain is present through the distal thigh
onto the foot.
PMH: CAD, hypertension, DM, COPD, dyslipidemia, chronic bilateral lower extremity lymphedema, PAD
PSH: Right hip replacement, left toe surgery, traumatic injury left thoracotomy for aortic tear at splenectomy
Tmax since ER evaluation 99.1
Tachycardia in the 100s to 120s
Normotensive
In acute distress secondary to pain in his acute illness
Right lower extremity with erythema from the distal thigh just proximal to the knee joint all the way down to the foot nearly circumferential but predominantly over the medial aspect. Tenderness to palpation diffusely. No crepitus. Diffuse edema
noted. No open wounds. No well-defined fluctuance or localizing induration. No drainage. Left lower extremity with splint and Ronan wrap in place.
Assessment/plan: 68-year-old male with severe right lower extremity cellulitis, resolving leukocytosis.
No crepitus on examination. No obvious abscess or palpable fluid collections within limits of examination. No acidosis on chemistries and lactic acid normal. Differential on WBC without bandemia.
While degree of erythema and pain is certainly concerning no overt signs of necrotizing soft tissue infection (blistering, crepitus, cyanosis of the skin)
Agree with ID recommendation for CT imaging of the right lower extremity for better evaluation of the deeper soft tissues
Broad-spectrum empiric antibiotics including vancomycin, cefazolin and clindamycin started
Will follow
Original Note:
Consultation
-
Date/Time Consultation Requested: 07/22/24 1127
Requesting Provider: Linda
Medical History
-
Chief Complaint: leg pain
History of Present Illness:
Mr Contreras is a 68 yo male with a h/o CAD, DM, COPD, PAD who is a current smoker who is essentially wc bound d/t lymphedema who fell in late June striking his left knee on the hardwood who initially presented on 07/06/24 and was diagnosed with a
tibial plateau fracture with long-leg splint applied with orthopedic follow up as an outpatient with [facility]. The splint to the E is in place and clean. Today, he presents with RLE pain and erythema which he notes has worsened over the
past 5 days. There is significant ascending erythema noted from the foot to the upper thigh. Edema present from the foot to the thigh with a ?fluctuant area to the upper calf. He denies fevers or chills.
Past Medical History
Past Medical History: CAD, COPD, Hypercholesterolemia, NIDDM and Other (Chronic bilateral lower extremity lymphedema, PAD)
Past Surgical History: Orthopedic (Right hip replacement, Left toe surgery) and Other (Traumatic injury with left thoracotomy for aortic tear and splenectomy)
Social History
Tobacco: Smoker (2ppd)
Personal:
Living: With Family
Family History
Family History: Reviewed & Not Pertinent
Allergies / Home Medications
Allergy/AdvReac Type Severity Reaction Status Date / Time
No Known Allergies Allergy Verified 07/08/23 14:38
�Medication �Instructions �Recorded �Confirmed �Type
aspirin 81 mg chewable tablet 81 mg PO DAILY Blood clot 11/12/20 07/22/24 History
prevention/tx
atorvastatin 20 mg tablet 20 mg PO DAILY High cholesterol 11/12/20 07/22/24 History
metformin 500 mg tablet,extended 1,000 mg PO BID@0800,1700 Diabetes 05/12/23 07/22/24 History
release 24 hr
Review of Systems
-
History Source: Patient
All other systems: Negative unless noted
A 10 point review of systems was completed, and was negative except as per HPI.
Physical Exam
Vital Signs
Temp Pulse Resp BP Pulse Ox
99.1 F 108 22 80/49 95
07/22/24 14:26 07/22/24 14:26 07/22/24 14:26 07/22/24 14:47 07/22/24 14:26
07/21/24 07/22/24 07/23/24
06:59 06:59 06:59
Actual Weight 102 kg 102 kg
Body Mass Index (BMI) 28.9
Lab Results
07/22/24 06:00
07/22/24 06:00
WBC 23.3 10^3/uL (4.8-10.8) H 07/22/24 06:00
Hgb 9.9 g/dL (13.0-18.0) L 07/22/24 06:00
Hct 30.7 % (39.0-52.0) L 07/22/24 06:00
Plt Count 302 10^3/uL (130-400) 07/22/24 06:00
Abs Immat Gran (auto) 0.1 10^3/uL (0-0.05) H 07/21/24 23:02
Neutrophils % 94.2 % (42.2-75.2) H 07/21/24 23:02
Physical Exam
General: Pain; Negative Comfortable
HEENT: Normocephalic
Respiratory: Non Labored Respirations
GI: Soft and Non Tender
Musculoskeletal: Other (limited ROM, sprint from thigh to foot on the LLE which is clean and intact)
Skin: Warm and Other (erythema from the foot up to the upper thigh on the RLE)
Neuro: Awake, Alert and AO x 3
Psych: Calm
Data Reviewed
-
Ultrasound: Report Reviewed by me, Discussed with Physician, Discussed with Nurse and Discussed with Patient
Labs: Labs Reviewed by me, Discussed with Physician, Discussed with Nurse and Discussed with Patient
Old Records: Reviewed
Assessment / Plan
-
68 yo male with h/o CAD, DM, COPD, PAD who is a current smoker who is essentially wc bound d/t lymphedema who fell late June with a left tibial plateau fracture and splint applied now presenting with pain the RLE with severe cellulitis noted,
?area of fluctuance to the right calf. US without DVT and chest CT without PE. Afebrile but tachycardic with hypotension. Significant leukocytosis present. H/H stable from previous. Multiple electrolyte imbalances noted. CPK elevated to 429.
--Check CT of the RLE for further evaluation
--ABX as per ID
--Medical management/electrolyte management as per hospitalist
Further surgical recommendations pending CT imaging, no plans for OR currently
[2024-07-22 16:37] LABS: Glucose - Point of Care 142 mg/dl (70-99)
[2024-07-22] MEDS: VANCOCIN 275 MG IV (16:56)
[2024-07-22] MEDS: ProAmatine 5 MG PO (17:04)
[2024-07-22] MEDS: LOVENOX 40 MG SC (17:04)
--- NOTE | 2024-07-22 17:06 | PTCARENOTE ---
rechecked BP and MD notified of the improvement. patient is being transfered to IMU. report given to the IMU nurse. patient was transferred to the stretcher to taken to CT scan. IMU nurse at the bedside
[2024-07-22 18:49] LABS: COVID-19 Antigen Negative (Negative)
[2024-07-22] MEDS: TYLENOL 650 MG PO (19:14)
--- NOTE | 2024-07-22 19:57 | PTCARENOTE ---
This RN went to 1 acute to transfer patient to CT scan via stretcher. After CT scan, patient brought to IMU. Patient slid from stretcher to bed with assist x4. Patient is AOx3. Patient is anxious. Patient c/o severe pain in B/L. Medication provided
per SEP. Tach with PACs on monitor. Patient on 2L NC. L leg splint with chandu bandage from bottom of toes to mid thigh due to recent fracture. L femoral pulse heard with doppler on L side. R leg +3 edema that is warm and red. Dorsalis pedis pulse
heard with doppler on R foot. Patient given tylenol due to having temperature of 100.4. Dr. Parry made aware that patient has moist cough and temperature. Dr. Parry ordered flu and covid swabs for patient. Swabs sent. Care ongoing.
--- NOTE | 2024-07-22 22:36 | PTCARENOTE ---
Assumed care of patient from previous RN. Patient on 4L O2 and sating at 93%, patient does take off nasal canula at times. Has occasional cough. AOx3 and anxious. Right leg is red, warm and +3 edema and very painful, see Mar. fever of 100.5, see
Mar. Assessment and VS as documented, care is ongoing,
[2024-07-22 23:05] LABS: Glucose - Point of Care 96 mg/dl (70-99)
[2024-07-23] VITALS (17 sets, daily range): BP systolic 83–127; BP diastolic 49–75; BMI 28.9
[2024-07-23] MEDS: DILAUDID 1 MG IV ×2 (02:18→07:24)
[2024-07-23] MEDS: ANCEF 10 IV ×3 (03:56→21:10)
[2024-07-23] MEDS: CLEOCIN 50 IV ×3 (03:57→21:10)
[2024-07-23] MEDS: MORPHINE SULFATE 4 MG IV ×3 (04:02→18:35)
[2024-07-23 05:08] LABS: ALT (SGPT) 16 U/L (0-50); AST (SGOT) 31 U/L (17-59); Albumin 2.5 g/dl (3.5-5.0); Alkaline Phosphatase 153 U/L (38-126); Blood Urea Nitrogen 23 mg/dl (9-20); Calcium 7.6 mg/dl (8.4-10.2); Carbon Dioxide 19 mmol/L (22-30); Chloride 102 mmol/L (98-107); Estimated Creatinine Clearance 82 ml/min; Glucose 83 mg/dl (70-99); Potassium 4.2 mmol/L (3.5-5.1); Sodium 132 mmol/L (135-145); Total Bilirubin 0.7 mg/dl (0.2-1.3); Total CK 260 U/L (55-170); Total Protein 5.1 g/dl (6.3-8.2); eGFR > 60.00
[2024-07-23 05:21] LABS: Glucose - Point of Care 96 mg/dl (70-99)
[2024-07-23] MEDS: VANCOCIN 275 MG IV ×2 (05:25→17:13)
[2024-07-23 05:27] LABS: Hematocrit 27.1 % (39.0-52.0); Hemoglobin 8.5 g/dL (13.0-18.0); Mean Corp Hgb Conc. 31.4 g/dL (33.0-37.0); Mean Corpuscular Hgb 24.5 pg (27.0-31.0); Mean Corpuscular Volume 78.1 fL (80.0-94.0); Mean Platelet Volume 9.9 fL (7.4-10.4); Platelet Count 291 10^3/uL (130-400); Red Blood Cell Count 3.47 10^6/uL (4.70-6.10); Red Cell Dist. Width 18.2 % (11.5-14.5); White Blood Cell Count 28.3 10^3/uL (4.8-10.8)
[2024-07-23] MEDS: LOW STRENGTH ASPIRIN 81 MG PO (07:24)
[2024-07-23] MEDS: LIPITOR 20 MG PO (07:24)
[2024-07-23] MEDS: ProAmatine 5 MG PO ×3 (07:25→17:12)
[2024-07-23] MEDS: MYCOSTATIN CREAM 1 APPLIC TOPICAL ×2 (07:36→21:11)
--- NOTE | 2024-07-23 07:36 | W.PN.ID1 ---
Date of Service
Date of Service: July 23, 2024
Today's Communication
Continue antibiotics. Trend white count.
Assessment / Plan
Severe right lower extremity cellulitis
Leukocytosis
Severe right lower extremity pain
Elevated CK
Tobacco abuse
CAD
HTN
DM
COPD
Dyslipidemia
Chronic bilateral lower extremity lymphedema
Recommendations:
At present, degree of pain that the patient is experiencing seems out of proportion to physical findings.
Continue with vancomycin for coverage of MRSA. Follow levels closely to prevent nephrotoxicity.
Continue with cefazolin, along with clindamycin (as a toxin inhibitor) in case of group A strep infection.
Continue to monitor white count and temperature curve.
Lower extremity elevation as is possible. Leg is somewhat contracted; patient reports that it has been that way for at least the past year or so and cannot be extended.
Follow pending cultures.
Further recommendations as additional data is returned.
����������������������������������������������������������
Chief Complaint
-: Cellulitis (Right lower extremity)
Subjective / Review of Systems
Patient seen and examined. Continues to report significant degrees of pain even with light touch to the right lower extremity.
Review of Systems: No Diarrhea
Vital Signs / Physical Exam
Vital Signs
Vital Signs
Temp Pulse Resp BP Pulse Ox
98.0 F 93 19 119/74 93
07/23/24 03:08 07/23/24 07:25 07/23/24 06:00 07/23/24 07:25 07/23/24 06:00
Physical Exam
Constitutional: Acutely Ill, Chronically Ill and Non-toxic
Eyes: Pupils Equal, Pupils Round, No Conjunctival Hemorrhage and Sclera Anicteric
Cardiovascular: S1/S2; Negative S3/S4
Pulmonary: Clear and Non Labored
Gastrointestinal: Non Tender
Extremities: Edema (Right lower extremity) and Erythema (Moderate; right lower extremity, extending from patchy areas of erythema above the knee down to toes.)
Skin: Warm
Neurological: Awake and Alert
Psychological: Calm
Objective Data
Lab Data
Lab Results
07/23/24 04:21
07/23/24 04:21
Estimated Creat Clear 82 ml/min 07/23/24 04:21
Lactic Acid Cancelled 07/22/24 03:57
Total Bilirubin 0.7 mg/dl (0.2-1.3) 07/23/24 04:21
AST 31 U/L (17-59) 07/23/24 04:21
ALT 16 U/L (0-50) 07/23/24 04:21
Alkaline Phosphatase 153 U/L (38-126) H 07/23/24 04:21
Most recent labs reviewed.
Micro Results:
07/22/24 00:28 Blood Culture - Preliminary
Blood/Venous No Growth in 24 hours- Final report to follow
07/22/24 00:28 Blood Culture - Preliminary
Blood/Venous No Growth in 24 hours- Final report to follow
07/22/24 18:26 Influenza Types A & B (GALINDO) - Final
Nasal Swab Negative for Influenza A & B, NAAT
Negative results must be combined with clinical observations
and patient history.
Nucleic Acid Amplification test (NAAT)performed on the
[employer] platform.
07/22/24 00:28 Urine Culture - Pending
Urine
Imaging:
07/22/2024 CT lower extremity with IV contrast: There is extensive edema in the subcutaneous tissues and musculature of the right foot, right lower leg and distal right thigh with overlying skin thickening. No confined or enhancing fluid collections
to suggest the presence of abscess. A right hip replacement is in satisfactory position. An intramedullary kathy in the mid and distal femoral diaphysis is traversed distally by 3 metallic screws. Please see full dictation for additional detail.
07/22/2024 Duplex ultrasound right lower extremity: Limited examination secondary to patient curled in position. Calf veins could not be assessed. No evidence of femoral/popliteal deep venous thrombosis. Please see full dictation for
additional detail.
07/22/2024 CT chest (PE study): No evidence of pulmonary embolism. Small right and trace left pleural effusion. Minor atelectasis noted. No evidence of pneumonia. Emphysematous changes noted.
--- NOTE | 2024-07-23 08:10 | PHA.VAN.FU ---
Vancomycin Assessment / Plan
- Assessment
Renal Function: Stable
WBC's are: Trending Up
In the past 24 hrs, patient has been: Febrile (TMAX 100.5 F (07/22/2024))
Concomitant Antimicrobials: CEFAZOLIN, CLINDAMYCIN
- Dosing Plan
Continue: VANCO 1250MG Q12H
- Monitoring Plan
No level(s) ordered at this time: CONSIDER LEVEL IN NEXT FEW DAYS
- Follow Up
Pharmacy will continue to follow.
Vancomycin Follow UP
- -
Patient Age: 68
Patient Sex: Male
Vancomycin Day #: 2
Indication: Skin And Soft Tissue
Requesting Provider: DR. BARAJAS
Height / Weight:
Height 6 ft 2 in
Actual Weight 102 kg
IBW in k.2
Adjusted BW in k.1
Pertinent Past Medical History: DM, CHRONIC LYMPHEDEMA
- Vital Signs / Lab Results
Temp Pulse Resp BP Pulse Ox
98.0 F 93 19 119/74 93
07/23/24 03:08 07/23/24 07:25 07/23/24 06:00 07/23/24 07:25 07/23/24 06:00
Lab Results - Hematology
07/21/24 07/22/24 07/23/24
23:02 06:00 04:21
WBC 22.8 H 23.3 H 28.3 H
Lab Results - Chemistry
07/21/24 07/22/24 07/23/24
23:02 06:00 04:21
BUN 26 H 24 H 23 H
Creatinine 0.9 0.9 1.0
Estimated Creat Clear 91 82
Albumin 3.0 L 2.5 L
07/22/24 07/22/24
00:28 03:57
Lactic Acid 1.4 Cancelled
Microbiology Results
07/22/24 00:28 Blood Culture - Preliminary
Blood/Venous No Growth in 24 hours- Final report to follow
07/22/24 00:28 Blood Culture - Preliminary
Blood/Venous No Growth in 24 hours- Final report to follow
07/22/24 18:26 Influenza Types A & B (GALINDO) - Final
Nasal Swab Negative for Influenza A & B, NAAT
Negative results must be combined with clinical observations
and patient history.
Nucleic Acid Amplification test (NAAT)performed on the
[employer] platform.
[2024-07-23] MEDS: NOVOLOG FLEXPEN-LOW RESISTANCE SC (09:33)
[2024-07-23 09:36] LABS: % Basophils 0.3 % (0-2); % Eosinophils 0.1 % (0-6); % Immature Granulocytes 1.3 % (0-0.5); % Lymphocytes 1.3 % (20.5-51.1); % Monocytes 3.3 % (1.7-9.3); % Neutrophils 93.7 % (42.2-75.2); Absolute Basophils 0.1 10^3/uL (0-0.2); Absolute Immature Granulocytes 0.4 10^3/uL (0-0.05); Absolute Lymphocytes 0.4 10^3/uL (1.2-3.4); Absolute Monocytes 0.9 10^3/uL (0.1-0.6); Absolute Neutrophils 26.5 10^3/uL (1.4-6.5); Nucleated Red Blood Cells % 0 % (-)
[2024-07-23 09:43] LABS: Glucose - Point of Care 100 mg/dl (70-99)
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
--- NOTE | 2024-07-23 10:55 | W.PN.HOSP.TC ---
Addendum entered and electronically signed by Korey Mckeon MD 07/23/24 11:13:
BP is 87/49 and thus lasix held.
Original Note:
Today's Communication/Plan
-
Trial of IV Lasix
Continue with broad-spectrum antibiotic
Trend WBC curve
IS/Wean o2
Assessment / Plan
Assessment / Plan
General: Appears in Distress, Pain and Appears Chronically Ill
HEENT: NormoCephalic, Anicteric, Moist mucous membranes and Atraumatic
Respiratory: Clear
Cardiac: S1/S2, Regular Rhythm and Tachycardia
GI: Soft, Non Tender and Non Distended
Rectal: Deferred by Provider
Genito-urinary: Deferred by me
Musculoskeletal: No Clubbing, No Cyanosis, Edema, Left Lower Extremity (wrapped in chandu-bandage/Cast) and Edema, Right Lower Extremity (2+ edema)
Skin: Warm and Rash (erythematous patch from feet to knee with scales, induration and tenderness to palpation. Small erythematous papules spreading up to the groin with inguinal rash and scrotal erythema w/o edema.)
Neuro: AO x 3
Hematologic/Lymphatic: No Lymphadenopathy
Psych: Calm
IMPRESSION:
68 y.o male with paraplegia, diabetes and hyperlipidemia coming in with pain, redness and swelling of the RLE x 2 days. Afebrile. Has leukocytosis with normal lactic acid level. DVT study is negative. Suspect cellulitis in patient with chronic
lymphedema. The right foot is particularly tender and swollen. Suspect superimposed fungal dermatitis in the proximal right leg, inguinal and scrotal regions
PLAN:
Cellulitis - Severe and moderately extensive
sepsis-poa
-blood cultures sent negative so far
-IV vancomycin for now,
-IV cefazolin and clindamycin added by infectious disease
-Pain seems out of proportion and concern for possible myositis
-will obtain right lower extremity CT angiogram-did not show any signs of soft tissue infection with abscess or necrotizing fasciitis.
-DC further fluids.
-Trend WBC.
-Pain control with PO/IV regimen
-General Surgery consulted
ID consultation
Hypotension likely secondary to hypovolemia
-Continue with midodrine
Status post IV fluid bolus. DC fluids.
Acute hypoxic respiratory insufficiency
Likely secondary atelectasis and due to pain
-Wean oxygen as tolerated. Incentive spirometry.
-CXR ordered.
Lymphedema -
- treat cellulitis
- keep elevated
- when improved skin lesion, will also need chandu-bandage wrapping
-Will try trial of IV Lasix to reduce swelling.
Fungal rash
- start topical fungal cream
Diabetes mellitus
-Hold metformin for now
-A1c of 7
-Insulin sliding scale and Accu-Cheks
Hyponatremia - suspect hypovolemic with chronic lymphedema.
-Sodium stabilizing.
Left tibula-fibula fracture
-cast remains
-wheelchair bound currently
DVT PPX - lovenox sq
Code status - full code
d/w with surgery
Anticipated Discharge: > 48 hours
Subjective/Interval History
-
Date of Service: July 23, 2024
states remains with increasing amount of right lower extremity pain
Retaining urine
Tolerating diet
Objective Data
-
Labs:
Laboratory Results
07/23/24
04:21
WBC 28.3 H
Hgb 8.5 L
Hct 27.1 L
Plt Count 291
Sodium 132 L
Potassium 4.2
Chloride 102
Carbon Dioxide 19 L
BUN 23 H
Creatinine 1.0
Glucose 83
Calcium 7.6 L
Total Bilirubin 0.7
AST 31
ALT 16
Alkaline Phosphatase 153 H
Vital Signs:
Vital Signs
Temp Pulse Resp BP Pulse Ox
98.2 F 90 16 127/72 96
07/23/24 07:20 07/23/24 10:15 07/23/24 10:15 07/23/24 10:00 07/23/24 10:15
I&O
07/22/24 07/23/24 07/24/24
06:59 06:59 06:59
Intake Total 480 / 480
Output Total 600 / 600 325 / 325
Balance -600 / -600 -325 / -325 480 / 480
Data Reviewed
-
Total Time Spent with Patient (in minutes): 55
--- NOTE | 2024-07-23 11:24 | PTCARENOTE ---
Dr. Mckeon made aware that patients BP is 87/49 with MAP of 61 and HR of 87. Patient asymptomatic and resting in bed. Midodrine given early per Dr. Mckeon. Care ongoing.
[2024-07-23] MEDS: NOVOLOG FLEXPEN-LOW RESISTANCE 1 UNITS SC ×2 (12:12→17:19)
[2024-07-23 12:18] LABS: Glucose - Point of Care 153 mg/dl (70-99)
--- NOTE | 2024-07-23 16:55 | PTCARENOTE ---
Patient AOx3. Patient has garbled speech. Patient on 4L NC. Patient has a frequent moist cough. NSR with BBB, PACs, PVCs on monitor. Patient having retention issues. Straight cath completed per order. +3 edema to R leg. L leg splint with chandu
bandage. Patient c/o B/L leg pain. Medication provided per SEP. Call galeana within reach, bed in lowest position, and bed of wheels locked.
[2024-07-23] MEDS: LOVENOX 40 MG SC (17:12)
[2024-07-23 17:29] LABS: Glucose - Point of Care 176 mg/dl (70-99)
[2024-07-23] MEDS: SENOKOT-S PO (21:15)
[2024-07-23] MEDS: ROXICODONE 5 MG PO (21:19)
[2024-07-23 23:32] LABS: Glucose - Point of Care 242 mg/dl (70-99)
[2024-07-24] VITALS (14 sets, daily range): BP systolic 103–124; BP diastolic 54–70; BMI 28.9
--- NOTE | 2024-07-24 00:25 | PTCARENOTE ---
Caring for pt overnight. aaox3, very anxious about moving his RLE. Pain meds given without relief. Pt having difficulty urinating, will continue BS/Cath protocol. iv abx. Q2T. Elevated RLE on pillow, trying to elevate R heel off bed. RLE red/hit
from mid thigh to toes, +3 edema. Will monitor.
[2024-07-24] MEDS: MORPHINE SULFATE 4 MG IV ×3 (01:42→21:01)
[2024-07-24] MEDS: CLEOCIN 50 IV ×3 (05:04→20:55)
[2024-07-24] MEDS: ANCEF 10 IV ×3 (05:04→21:15)
[2024-07-24] MEDS: DILAUDID 1 MG IV ×2 (05:13→09:52)
[2024-07-24] MEDS: VANCOCIN 275 MG IV ×2 (05:52→18:29)
--- NOTE | 2024-07-24 05:52 | PTCARENOTE ---
Dilaudid seemed to work best for patients pain.
[2024-07-24 05:57] LABS: % Basophils 0.3 % (0-2); % Eosinophils 0.6 % (0-6); % Lymphocytes 1.7 % (20.5-51.1); % Monocytes 5.6 % (1.7-9.3); % Neutrophils 90.8 % (42.2-75.2); Absolute Basophils 0.1 10^3/uL (0-0.2); Absolute Eosinophils 0.2 10^3/uL (0-0.7); Absolute Immature Granulocytes 0.3 10^3/uL (0-0.05); Absolute Lymphocytes 0.5 10^3/uL (1.2-3.4); Absolute Monocytes 1.6 10^3/uL (0.1-0.6); Absolute Neutrophils 26.3 10^3/uL (1.4-6.5); Hematocrit 27.6 % (39.0-52.0); Hemoglobin 8.4 g/dL (13.0-18.0); Mean Corp Hgb Conc. 30.4 g/dL (33.0-37.0); Mean Corpuscular Hgb 24.7 pg (27.0-31.0); Mean Corpuscular Volume 81.2 fL (80.0-94.0); Mean Platelet Volume 10.3 fL (7.4-10.4); Nucleated Red Blood Cells % 0.1 % (-); Platelet Count 328 10^3/uL (130-400); Red Cell Dist. Width 18.5 % (11.5-14.5); White Blood Cell Count 28.9 10^3/uL (4.8-10.8)
[2024-07-24 06:27] LABS: ALT (SGPT) < 10 U/L (0-50); AST (SGOT) 28 U/L (17-59); Albumin 2.4 g/dl (3.5-5.0); Alkaline Phosphatase 202 U/L (38-126); Blood Urea Nitrogen 22 mg/dl (9-20); Calcium 7.9 mg/dl (8.4-10.2); Carbon Dioxide 23 mmol/L (22-30); Chloride 99 mmol/L (98-107); Estimated Creatinine Clearance 82 ml/min; Glucose 116 mg/dl (70-99); Potassium 3.9 mmol/L (3.5-5.1); Sodium 131 mmol/L (135-145); Total Bilirubin 0.4 mg/dl (0.2-1.3); Total Protein 5.2 g/dl (6.3-8.2); eGFR > 60.00
[2024-07-24 08:33] LABS: Glucose - Point of Care 113 mg/dl (70-99)
[2024-07-24] MEDS: LIPITOR 20 MG PO (08:33)
[2024-07-24] MEDS: SENOKOT-S 1 TABLET PO (08:33)
[2024-07-24] MEDS: ProAmatine 5 MG PO ×3 (08:33→18:28)
[2024-07-24] MEDS: LOW STRENGTH ASPIRIN 81 MG PO (08:33)
[2024-07-24] MEDS: NOVOLOG FLEXPEN-LOW RESISTANCE SC ×2 (08:36→18:24)
[2024-07-24] MEDS: MYCOSTATIN CREAM 1 APPLIC TOPICAL ×2 (08:36→20:46)
--- NOTE | 2024-07-24 08:49 | PHA.VAN.FU ---
Vancomycin Assessment / Plan
- Assessment
Renal Function: Stable
WBC's are: Stable
In the past 24 hrs, patient has been: Afebrile
Concomitant Antimicrobials: cefazolin, clindamycin
- Dosing Plan
Continue: Vanc 1250mg Q12H
- Monitoring Plan
Peak Level: 07/24 21:30
Trough Level: 07/25 05:30
Monitoring Comments: levels to be drawn after 5th maintenance dose
- Follow Up
Pharmacy will continue to follow.
Vancomycin Follow UP
- -
Patient Age: 68
Patient Sex: Male
Vancomycin Day #: 3
Indication: Skin And Soft Tissue
Requesting Provider: Dr. Abbott / Lindsay
Pertinent Antimicrobial Allergies:
NKDA
Height / Weight:
Height 6 ft 2 in
Actual Weight 102 kg
IBW in k.2
Adjusted BW in k.1
Pertinent Past Medical History: DM, splenectomy, lymphedema
- Vital Signs / Lab Results
Temp Pulse Resp BP Pulse Ox
98.1 F 104 15 117/54 90
07/24/24 03:11 07/24/24 08:33 07/24/24 08:00 07/24/24 08:33 07/24/24 07:39
Lab Results - Hematology
07/21/24 07/22/24 07/23/24
23:02 06:00 04:21
WBC 22.8 H 23.3 H 28.3 H
07/24/24
04:58
WBC 28.9 H
Lab Results - Chemistry
07/21/24 07/22/24 07/23/24
23:02 06:00 04:21
BUN 26 H 24 H 23 H
Creatinine 0.9 0.9 1.0
Estimated Creat Clear 91 82
Albumin 3.0 L 2.5 L
07/24/24
04:58
BUN 22 H
Creatinine 1.0
Estimated Creat Clear 82
Albumin 2.4 L
07/22/24 07/22/24
00:28 03:57
Lactic Acid 1.4 Cancelled
Microbiology Results
07/22/24 00:28 Blood Culture - Preliminary
Blood/Venous No Growth in 48 hours- Final report to follow
07/22/24 00:28 Blood Culture - Preliminary
Blood/Venous No Growth in 48 hours- Final report to follow
07/22/24 00:28 Urine Culture - Final
Urine
07/22/24 18:26 Influenza Types A & B (GALINDO) - Final
Nasal Swab Negative for Influenza A & B, NAAT
Negative results must be combined with clinical observations
and patient history.
Nucleic Acid Amplification test (NAAT)performed on the
[employer] platform.
--- NOTE | 2024-07-24 10:05 | W.PN.GS2 ---
Today's Communication / Plan
-
Continue antibiotics per ID.
General surgical sign off, please call with questions or concerns.
Assessment / Plan
-
68-year-old male with h/o limited rom/lymphedema, orthopedic surgery to BLLE after traumatic accident as well as splenectomy PAD, DM and tobacco abuse presenting with severe right lower extremity cellulitis
CT imaging of RLE reviewed and without abscess, extensive subcutaneous edema noted with invasion into musculature of the right foot with skin thickening. No obvious abscess or palpable fluid collections within limits of examination. Orthopedic
hardware noted. While degree of erythema and pain is certainly concerning no overt signs of necrotizing soft tissue infection (blistering, crepitus, cyanosis of the skin). Erythema improved from previous markings
Worsening leukocytosis, some mild acidosis on chemistries today, lactic normal on presentation
AFVSS, bp low normal today but better than previous
CK trending down
Exam improving
Plan:
No acute surgical intervention warranted at this time.
Continue antibiotics per ID.
General surgery will sign off for now, please call with any questions or concerns
Time Spent
Total Time Spent with Patient (in minutes): 20
Subjective Data
-
Date of Service: July 24, 2024
Interval Events:
No acute events overnight. Slept well. Pain Controlled, 'feels better'. Denies Nausea/Vomiting.
Objective Data
-
Intake and Output
07/23/24 07/24/24 07/25/24
06:59 06:59 06:59
Intake Total 480 / 480
Output Total 325 / 325 1350 / 1350
Balance -325 / -325 -870 / -870
Intake:
Oral fluids 480 / 480
Output:
Urine, Voided 325 / 325 750 / 750
Straight cath output 600 / 600
Other:
Number of approximated LARGE 1
amounts of urine
Vital Signs
Temp Pulse Resp BP Pulse Ox
98.1 F 104 15 117/54 90
07/24/24 03:11 07/24/24 08:33 07/24/24 08:00 07/24/24 08:33 07/24/24 07:39
Lab Results
07/24/24 04:58
07/24/24 04:58
Calcium 7.9 mg/dl (8.4-10.2) L 07/24/24 04:58
Magnesium 1.5 mg/dl (1.6-2.3) L 07/22/24 06:00
Total Bilirubin 0.4 mg/dl (0.2-1.3) 07/24/24 04:58
AST 28 U/L (17-59) 07/24/24 04:58
ALT < 10 U/L (0-50) 07/24/24 04:58
Alkaline Phosphatase 202 U/L (38-126) H 07/24/24 04:58
Total Protein 5.2 g/dl (6.3-8.2) L 07/24/24 04:58
Albumin 2.4 g/dl (3.5-5.0) L 07/24/24 04:58
Physical Exam
-
GENERAL/NEURO: Awake, Alert, no distress
CHEST: Unlabored breathing on RA
EXTREMITIES: warm, well perfused, erythema has receded from previous markings, there is still significant erythema circumferentially from the foot all the way up to the proximal calf however there is no fluctuance, discharge
Patient has a alexis catheter: No
--- NOTE | 2024-07-24 10:36 | W.PN.ID1 ---
Date of Service
Date of Service: July 24, 2024
Today's Communication
Continue antibiotics.
Assessment / Plan
Severe right lower extremity cellulitis
Marked leukocytosis
Severe right lower extremity pain
Elevated CK
Tobacco abuse
CAD
HTN
DM
COPD
Dyslipidemia
Chronic bilateral lower extremity lymphedema
Recommendations:
Continue with vancomycin (d#4) for coverage of MRSA. Follow levels closely to prevent nephrotoxicity.
Continue with cefazolin (d#3), along with clindamycin (d#3)(as a toxin inhibitor) in case of group A strep infection.
Continue to monitor white count and temperature curve.
Lower extremity elevation as is possible. Leg is somewhat contracted; patient reports that it has been that way for at least the past year or so and cannot be extended.
Follow pending cultures.
CT of leg reviewed, and although not commented on, appears to have significant stool in the rectal vault. May need further workup.
Further recommendations as additional data is returned.
����������������������������������������������������������
Chief Complaint
-: Leukocytosis and Cellulitis (Right lower extremity)
Subjective / Review of Systems
Patient seen and examined. Reports ongoing leg pain/discomfort.
Review of Systems: No Fever and No Chills
Vital Signs / Physical Exam
Vital Signs
Vital Signs
Temp Pulse Resp BP Pulse Ox
98.0 F 104 15 117/54 90
07/24/24 07:13 07/24/24 08:33 07/24/24 08:00 07/24/24 08:33 07/24/24 07:39
Physical Exam
Constitutional: Acutely Ill, Chronically Ill and Non-toxic
Eyes: Pupils Equal, Pupils Round, No Conjunctival Hemorrhage and Sclera Anicteric
Cardiovascular: S1/S2; Negative S3/S4
Pulmonary: Clear and Non Labored
Gastrointestinal: Non Tender
Extremities: Edema (Right lower extremity) and Erythema (Moderate; right lower extremity, extending from patchy areas of erythema above the knee down to toes. Possible mild decrease in the overall erythema)
Musculoskeletal: Other (Left leg splinted and wrapped in Ronan wrap.)
Skin: Warm
Neurological: Awake and Alert
Psychological: Calm
Objective Data
Lab Data
Lab Results
07/24/24 04:58
07/24/24 04:58
Estimated Creat Clear 82 ml/min 07/24/24 04:58
Lactic Acid Cancelled 07/22/24 03:57
Total Bilirubin 0.4 mg/dl (0.2-1.3) 07/24/24 04:58
AST 28 U/L (17-59) 07/24/24 04:58
ALT < 10 U/L (0-50) 07/24/24 04:58
Alkaline Phosphatase 202 U/L (38-126) H 07/24/24 04:58
Most recent labs reviewed.
Micro Results:
07/22/24 00:28 Blood Culture - Preliminary
Blood/Venous No Growth in 48 hours- Final report to follow
07/22/24 00:28 Blood Culture - Preliminary
Blood/Venous No Growth in 48 hours- Final report to follow
07/22/24 00:28 Urine Culture - Final
Urine
07/22/24 18:26 Influenza Types A & B (GALINDO) - Final
Nasal Swab Negative for Influenza A & B, NAAT
Negative results must be combined with clinical observations
and patient history.
Nucleic Acid Amplification test (NAAT)performed on the
[employer] platform.
Imaging:
07/22/2024 CT lower extremity with IV contrast: There is extensive edema in the subcutaneous tissues and musculature of the right foot, right lower leg and distal right thigh with overlying skin thickening. No confined or enhancing fluid collections
to suggest the presence of abscess. A right hip replacement is in satisfactory position. An intramedullary kathy in the mid and distal femoral diaphysis is traversed distally by 3 metallic screws. Please see full dictation for additional detail.
07/22/2024 Duplex ultrasound right lower extremity: Limited examination secondary to patient curled in position. Calf veins could not be assessed. No evidence of femoral/popliteal deep venous thrombosis. Please see full dictation for
additional detail.
07/22/2024 CT chest (PE study): No evidence of pulmonary embolism. Small right and trace left pleural effusion. Minor atelectasis noted. No evidence of pneumonia. Emphysematous changes noted.
Care Review
Plan reviewed with: Physician (Hospitalist)
--- NOTE | 2024-07-24 11:03 | W.PN.HOSP.TC ---
Today's Communication/Plan
-
bowel regimen-enema
IV broad spectrum abx
monitor BP
if stable-tx out of IMU
Assessment / Plan
Assessment / Plan
General: Appears in Distress, Pain and Appears Chronically Ill
HEENT: NormoCephalic, Anicteric, Moist mucous membranes and Atraumatic
Respiratory: Clear
Cardiac: S1/S2, Regular Rhythm and Tachycardia
GI: Soft, Non Tender and Non Distended
Rectal: Deferred by Provider
Genito-urinary: Deferred by me
Musculoskeletal: No Clubbing, No Cyanosis, Edema, Left Lower Extremity (wrapped in chandu-bandage/Cast) and Edema, Right Lower Extremity (2+ edema)
Skin: Warm and Rash (erythematous patch from feet to knee with scales, induration and tenderness to palpation. RLE erythema improved on lateral thigh/leg.
Neuro: AO x 3
Hematologic/Lymphatic: No Lymphadenopathy
Psych: Calm
IMPRESSION:
68 y.o male with paraplegia, diabetes and hyperlipidemia coming in with pain, redness and swelling of the RLE x 2 days. Afebrile. Has leukocytosis with normal lactic acid level. DVT study is negative. Suspect cellulitis in patient with chronic
lymphedema. The right foot is particularly tender and swollen. Suspect superimposed fungal dermatitis in the proximal right leg, inguinal and scrotal regions
PLAN:
Cellulitis - Severe and moderately extensive
sepsis-poa
-blood cultures sent negative so far
-IV vancomycin for now,
-IV cefazolin and clindamycin added by infectious disease
-Pain seems out of proportion seems to be improving
-will obtain right lower extremity CT angiogram-did not show any signs of soft tissue infection with abscess or necrotizing fasciitis.
-DC further fluids.
-Trend WBC. Persistent leukocytosis noted. afebrile.
-Pain control with PO/IV regimen
-General Surgery consulted and signed off.
ID consultation
Hypotension likely secondary to hypovolemia
-Continue with midodrine
Status post IV fluid bolus. DC fluids.
Suspected severe constipation
-noted on CT scan
-enema and aggressive bowel regimen
-severe constipation could be related to persistent leukocytosis?
Acute hypoxic respiratory insufficiency
Likely secondary atelectasis and due to pain
-Wean oxygen as tolerated. Incentive spirometry.
-CXR ordered and noted
-on room air.
Lymphedema -
- treat cellulitis
- keep elevated
- when improved skin lesion, will also need chandu-bandage wrapping
-edema improving
Fungal rash
- start topical fungal cream
Diabetes mellitus
-Hold metformin for now
-A1c of 7
-Insulin sliding scale and Accu-Cheks
Hyponatremia - suspect hypovolemic with chronic lymphedema.
-Sodium stabilizing.
Left tibula-fibula fracture
-cast remains
-wheelchair bound currently
DVT PPX - lovenox sq
Code status - full code
d/w with ID
Anticipated Discharge: > 48 hours
Subjective/Interval History
-
Date of Service: July 24, 2024
states rash has improved
tolerating diet
Objective Data
-
Labs:
Laboratory Results
07/24/24
04:58
WBC 28.9 H
Hgb 8.4 L
Hct 27.6 L
Plt Count 328
Sodium 131 L
Potassium 3.9
Chloride 99
Carbon Dioxide 23
BUN 22 H
Creatinine 1.0
Glucose 116 H
Calcium 7.9 L
Total Bilirubin 0.4
AST 28
ALT < 10
Alkaline Phosphatase 202 H
Vital Signs:
Vital Signs
Temp Pulse Resp BP Pulse Ox
98.0 F 104 15 117/54 90
01/20/25 07:13 07/24/24 08:33 07/24/24 08:00 07/24/24 08:33 07/24/24 07:39
I&O
07/23/24 07/24/24 07/25/24
06:59 06:59 06:59
Intake Total 480 / 480
Output Total 325 / 325 1350 / 1350
Balance -325 / -325 -870 / -870
Data Reviewed
-
Total Time Spent with Patient (in minutes): 55
[2024-07-24 12:21] LABS: Glucose - Point of Care 151 mg/dl (70-99)
--- NOTE | 2024-07-24 12:33 | WOUNDNOTE ---
WON RN NOTE: Patient admitted with cellulitis, reviewed chart. Patient known to service, last seen May of 2023 for R heel DTI and abrasions on legs, contracted legs chronic. Today R leg with cellulitis, edema and dry skin. L leg with brace and
chandu wrap to secure. Patient states' leave me alone I don't want to be touched right now' Nurse Tawanna who took care of him recently, states patient has a PI on R heel that looks bad. Will order mineral oil for dry skin on legs and attempt to see
patient this afternoon.
--- NOTE | 2024-07-24 12:39 | CM ---
Met with pt at bedside
Pt admitted for pain/redness of RLE. PMH - paraplegia, DM, chronic lymphedema, hyperlipidemia, smoking history, recent L tib-tib fx -
Lives with his nephew in a Ranch Style home; no steps to enter
Reports is wheel chair bound, does own transfers, independent with ADL's
DME - Wheel chair, shower chair
SNF - denies past hx
HH - denies past hx
PCP - Memo Gonsalez
Pharm - [facility]
PT/OT evals pending
Wound Care following
Plan - TBD based on discharge needs
[2024-07-24] MEDS: NOVOLOG FLEXPEN-LOW RESISTANCE 1 UNITS SC (13:40)
[2024-07-24] MEDS: HYDROPHOR 1 APPLIC TOPICAL (15:26)
--- NOTE | 2024-07-24 16:11 | WOUNDNOTE ---
WON RN NOTE ADDENDUM: Able to assess patient along with nurse Vani. Received patient sleeping in position on L side, R leg contracted. Patient protested but instructed patient that I need to see his wound on R heel. R medial leg without any
wounds. R heel with DTI shallow opening, dark red maroon underneath, scant drainage. Adaptic, abd pad and hema applied. R leg with redness 3+ edema and dry skin, unable to tolerate compression at this time. Ultrasound of R leg negative for DVT.
Reviewed surgical note, no abscess or necrotizing fascitis, no surgical intervention needed. Moisturized R leg and foot with mineral oil, pillow with air cushion btw knees and under heel. Not a candidate for offloading heel boot as patient can't
tolerate anything on leg at this time. L leg with splint/cast and chandu wrap, spoke to NICOLE Javier who confirmed no wounds reported on L leg, ortho following. Patient reports he has an apt with ortho this Wednesday. Will recommend to Dr. Mckeon that if
patient not able to follow up with apt that ortho see patient here to manage L leg. Patient confirmed he lives with nephew who assists with care and takes him to Dr. ca's. Patient states he is able to slide self to wheelchair daily at home. Patient
turned self in bed with minimal assist, sacrum intact mild masd on buttocks, will order fungal powder. Patient for transfer to [facility] soon, called stefanie Syed for [facility] air bed to be placed in .
--- NOTE | 2024-07-24 17:28 | PTCARENOTE ---
Patient AOx3. Patient has garbled speech. Patient on RA. VSS. Patient has a frequent moist cough. NSR with BBB, PACs, PVCs on monitor. Patient uses urinal appropriately. Enema completed per order. 2 very large formed brown BM's. +3 edema to R leg. L
leg splint with chandu bandage. Patient c/o B/L leg pain. Medication provided per SEP. Call galeana within reach, bed in lowest position, and bed of wheels locked.
--- NOTE | 2024-07-24 17:29 | PTCARENOTE ---
Report given to 4W RN. Patient transferred via stretcher with patient belongings.
[2024-07-24 17:51] LABS: Glucose - Point of Care 123 mg/dl (70-99)
[2024-07-24] MEDS: LOVENOX 40 MG SC (18:28)
[2024-07-24] MEDS: DESENEX/MITRAZOL/ZEASORB 1 APPLIC TOPICAL (20:46)
[2024-07-24] MEDS: SENOKOT-S PO (20:47)
[2024-07-24 22:49] LABS: Glucose - Point of Care 220 mg/dl (70-99)
[2024-07-24 23:42] LABS: Vancomycin Peak 23.1 ug/ml (18-26)
[2024-07-25] MEDS: DILAUDID 1 MG IV (02:15)
[2024-07-25 03:05] VITALS: BP 120/56
[2024-07-25] MEDS: CLEOCIN 50 IV ×2 (03:20→11:00)
[2024-07-25] MEDS: ANCEF 10 IV ×2 (03:20→12:45)
[2024-07-25 07:47] LABS: Glucose - Point of Care 143 mg/dl (70-99)
[2024-07-25 07:50] VITALS: BP 142/67
[2024-07-25] MEDS: NOVOLOG FLEXPEN-LOW RESISTANCE SC ×2 (07:55→17:03)
[2024-07-25] MEDS: VANCOCIN 275 MG IV (08:32)
[2024-07-25] MEDS: LIPITOR 20 MG PO (08:36)
[2024-07-25] MEDS: SENOKOT-S 1 TABLET PO (08:36)
[2024-07-25] MEDS: MIRALAX 17 GRAMS PO (08:36)
[2024-07-25] MEDS: LOW STRENGTH ASPIRIN 81 MG PO (08:36)
[2024-07-25] MEDS: ProAmatine 5 MG PO (08:36)
[2024-07-25] MEDS: HYDROPHOR 1 APPLIC TOPICAL (08:37)
[2024-07-25] MEDS: MYCOSTATIN CREAM 1 APPLIC TOPICAL (08:38)
[2024-07-25] MEDS: DESENEX/MITRAZOL/ZEASORB 1 APPLIC TOPICAL (08:38)
[2024-07-25 09:02] LABS: Hematocrit 26.7 % (39.0-52.0); Hemoglobin 8.6 g/dL (13.0-18.0); Mean Corp Hgb Conc. 32.2 g/dL (33.0-37.0); Mean Corpuscular Hgb 25.2 pg (27.0-31.0); Mean Corpuscular Volume 78.3 fL (80.0-94.0); Mean Platelet Volume 10.8 fL (7.4-10.4); Platelet Count 414 10^3/uL (130-400); Red Blood Cell Count 3.41 10^6/uL (4.70-6.10); Red Cell Dist. Width 18.6 % (11.5-14.5); White Blood Cell Count 26.6 10^3/uL (4.8-10.8)
[2024-07-25 09:13] LABS: Vancomycin Trough 16.5 ug/ml (5-20)
[2024-07-25 09:18] LABS: % Basophils 0.2 % (0-2); % Eosinophils 0.5 % (0-6); % Immature Granulocytes 1.3 % (0-0.5); % Lymphocytes 2.1 % (20.5-51.1); % Monocytes 7.1 % (1.7-9.3); % Neutrophils 88.8 % (42.2-75.2); Absolute Basophils 0.1 10^3/uL (0-0.2); Absolute Eosinophils 0.1 10^3/uL (0-0.7); Absolute Immature Granulocytes 0.3 10^3/uL (0-0.05); Absolute Lymphocytes 0.6 10^3/uL (1.2-3.4); Absolute Monocytes 1.9 10^3/uL (0.1-0.6); Absolute Neutrophils 23.6 10^3/uL (1.4-6.5); Nucleated Red Blood Cells % 0.1 % (-)
[2024-07-25 09:27] LABS: ALT (SGPT) < 10 U/L (0-50); AST (SGOT) 27 U/L (17-59); Albumin 2.5 g/dl (3.5-5.0); Alkaline Phosphatase 217 U/L (38-126); Blood Urea Nitrogen 19 mg/dl (9-20); Carbon Dioxide 24 mmol/L (22-30); Chloride 100 mmol/L (98-107); Estimated Creatinine Clearance 82 ml/min; Glucose 112 mg/dl (70-99); Potassium 3.7 mmol/L (3.5-5.1); Sodium 133 mmol/L (135-145); Total Bilirubin 0.5 mg/dl (0.2-1.3); Total Protein 5.3 g/dl (6.3-8.2); eGFR > 60.00
--- NOTE | 2024-07-25 09:36 | PHA.VAN.FU ---
Vancomycin Assessment / Plan
- Assessment
Renal Function: Stable
WBC's are: Trending Down
In the past 24 hrs, patient has been: Afebrile
Concomitant Antimicrobials: cefazolin, clindamycin
- Assessment - Therapeutic Drug Monitoring
Extrapolated Cmax (mcg/mL): 26.4
Peak level was drawn: More than 3 hours after previous dose (Peak drawn late so calculations are not as accurate. Peak underestimated from true value which may lead to underestimation of AUC and overestimation of half-life)
Extrapolated Cmin (mcg/mL): 17.3
Trough Drawn: Appropriately
Levels were drawn: At steady state (levels drawn after 5th maintenance dose; however, patient may have more accumulation with prolonged half-life)
Calculated AUC (mcg*h/mL): 518
Calculated ke: 0.0404
Calculated half life (H): 17.2
Calculated Vd (L): 119.5 (~1.2 L/kg)
Calculated Vanc CL (ml/min): 80.4
Peak drawn late so accuracy of calculations reduced; however, half-life likely will remain greater than interval and expect patient will have additional accumulation in trough/Cmin that is at higher end of goal range
- Dosing Plan
Adjust Regimen to: dosing by level
Dosing Comments: received 1250mg this morning at 0832
Will adjust to dosing by level for now to assess potential for Q24H interval with prolonged half-life and appropriate mg/kg dosing patient may require
- Monitoring Plan
Random Level: 07/26 0600 to assess level for Q24H dosing
- Follow Up
Pharmacy will continue to follow.
Vancomycin Follow UP
- -
Patient Age: 68
Patient Sex: Male
Vancomycin Day #: 4
Indication: Skin And Soft Tissue
Requesting Provider: Dr. Abbott / Lindsay
Pertinent Antimicrobial Allergies:
NKDA
Height / Weight:
Height 6 ft 2 in
Actual Weight 102 kg
IBW in k.2
Adjusted BW in k.1
Pertinent Past Medical History: DM, splenectomy, lymphedema
- Vital Signs / Lab Results
Temp Pulse Resp BP Pulse Ox
98.3 F 100 22 142/67 92
07/25/24 07:50 07/25/24 07:50 07/25/24 07:50 07/25/24 07:50 07/25/24 07:50
Lab Results - Hematology
07/23/24 07/24/24 07/25/24
04:21 04:58 07:39
WBC 28.3 H 28.9 H 26.6 H
Lab Results - Chemistry
07/23/24 07/24/24 07/25/24
04:21 04:58 07:39
BUN 23 H 22 H 19
Creatinine 1.0 1.0 1.0
Estimated Creat Clear 82 82 82
Albumin 2.5 L 2.4 L 2.5 L
Microbiology Results
07/22/24 00:28 Blood Culture - Preliminary
Blood/Venous No Growth in 72 hours- Final report to follow
07/22/24 00:28 Blood Culture - Preliminary
Blood/Venous No Growth in 72 hours- Final report to follow
07/22/24 00:28 Urine Culture - Final
Urine
Therapeutic Drug Monitoring
Vancomycin Peak 23.1 ug/ml (18-26) 07/24/24 23:19
Vancomycin Trough 16.5 ug/ml (5-20) 07/25/24 07:39
[2024-07-25 10:07] VITALS: BMI 28.9
--- NOTE | 2024-07-25 10:18 | W.PN.HOSP.TC ---
Addendum entered and electronically signed by Korey Mckeon MD 07/25/24 14:26:
hypotension only
Addendum entered and electronically signed by Korey Mckeon MD 07/25/24 14:25:
hypokalemia
Right lower extremity cellulitis possible associated with DM/PVD/Lymphedema/immobility/R heel wound
Original Note:
Today's Communication/Plan
-
IV broad spectrum abx
bowel regimen
ID recs
Assessment / Plan
Assessment / Plan
General: Appears in Distress, Pain and Appears Chronically Ill,dishevel, looks older than stated age
HEENT: NormoCephalic, Anicteric, Moist mucous membranes and Atraumatic
Respiratory: Clear
Cardiac: S1/S2, Regular Rhythm and Tachycardia
GI: Soft, Non Tender and Non Distended
Rectal: Deferred by Provider
Genito-urinary: Deferred by me
Musculoskeletal: No Clubbing, No Cyanosis, Edema, Left Lower Extremity (wrapped in chandu-bandage/Cast) and Edema, Right Lower Extremity (2+ edema)
Skin: Warm and Rash (erythematous patch from feet to knee with scales, induration and tenderness to palpation. RLE erythema improved on lateral thigh/leg.
Neuro: AO x 3
Hematologic/Lymphatic: No Lymphadenopathy
Psych: Calm
IMPRESSION:
68 y.o male with paraplegia, diabetes and hyperlipidemia coming in with pain, redness and swelling of the RLE x 2 days. Afebrile. Has leukocytosis with normal lactic acid level. DVT study is negative. Suspect cellulitis in patient with chronic
lymphedema. The right foot is particularly tender and swollen. Suspect superimposed fungal dermatitis in the proximal right leg, inguinal and scrotal regions
PLAN:
Cellulitis - Severe and moderately extensive
sepsis-poa
R heel DTI-POA
-blood cultures sent negative so far
-IV vancomycin for now,
-IV cefazolin and clindamycin added by infectious disease
-Pain seems out of proportion seems to be improving
-will obtain right lower extremity CT angiogram-did not show any signs of soft tissue infection with abscess or necrotizing fasciitis.
-DC further fluids.
-Trend WBC. Persistent leukocytosis with mild downtrend noted.
-Pain control with PO/IV regimen
-General Surgery consulted and signed off.
ID consultation
Hypotension likely secondary to hypovolemia
-Continue with midodrine with hold parameters. BP improved.
Status post IV fluid bolus. DC fluids.
Suspected severe constipation
-noted on CT scan
-enema and aggressive bowel regimen. Good results with enema.
-severe constipation could be related to persistent leukocytosis?
Acute hypoxic respiratory insufficiency
Likely secondary atelectasis and due to pain
-Wean oxygen as tolerated. Incentive spirometry.
-CXR ordered and noted
-on room air.
Lymphedema -
- treat cellulitis
- keep elevated
- when improved skin lesion, will also need chandu-bandage wrapping
-edema improving
Fungal rash
- start topical fungal cream
Diabetes mellitus
-Hold metformin for now
-A1c of 7
-Insulin sliding scale and Accu-Cheks
Hyponatremia - suspect hypovolemic with chronic lymphedema.
-Sodium stabilizing.
Left tibula-fibula fracture
-cast remains
-wheelchair bound currently
-Pt to look into which orthopedic doc he goes for f/u. [facility] vs. [facility].
DVT PPX - lovenox sq
Code status - full code
Anticipated Discharge: > 48 hours
Subjective/Interval History
-
Date of Service: July 25, 2024
improvement in pain
Objective Data
-
Labs:
Laboratory Results
07/25/24
07:39
WBC 26.6 H
Hgb 8.6 L
Hct 26.7 L
Plt Count 414 H D
Sodium 133 L
Potassium 3.7
Chloride 100
Carbon Dioxide 24
BUN 19
Creatinine 1.0
Glucose 112 H
Calcium 8.0 L
Total Bilirubin 0.5
AST 27
ALT < 10
Alkaline Phosphatase 217 H
Vital Signs:
Vital Signs
Temp Pulse Resp BP Pulse Ox
98.3 F 100 22 142/67 92
07/25/24 07:50 07/25/24 07:50 07/25/24 07:50 07/25/24 07:50 07/25/24 07:50
I&O
07/24/24 07/25/24 07/26/24
06:59 06:59 06:59
Intake Total 480 / 480 580 / 580
Output Total 1350 / 1350 800 / 800
Balance -870 / -870 -220 / -220
Data Reviewed
-
Total Time Spent with Patient (in minutes): 55
[2024-07-25 11:11] VITALS: BP 126/59
[2024-07-25 11:30] LABS: Glucose - Point of Care 175 mg/dl (70-99)
[2024-07-25] MEDS: ROXICODONE 5 MG PO ×3 (11:32→22:13)
[2024-07-25] MEDS: NOVOLOG FLEXPEN-LOW RESISTANCE 1 UNITS SC (11:51)
[2024-07-25] MEDS: ProAmatine PO ×2 (12:51→17:23)
--- NOTE | 2024-07-25 13:57 | PN.CDI ---
CDI
- -
CDI:
Physician Documentation Request
Admit Date: 07/22/24 05:12
Dear Doctor Linda,
Please review the following and provide your response in the progress notes.
Clinical Indicators:
Pt admitted with Sepsis 2/2 Right lower extremity Cellulitis / HX of PAD/DM/Lymphedema
A1C 7.0
Please provide the suspected etiology of the documented right lower extremity cellulitis :
Right lower extremity cellulitis due to /associated with DM/PVD/Lymphedema
Right lower extremity cellulitis due to /associated with Lymphedema only
Other ( please specify)
Use of terms such as suspected, likely, concern for, or probable (associated with a specific diagnosis that is being evaluated, monitored, or treated as if it exists) are acceptable and can be coded in the inpatient setting, when documented at the
time of discharge.
Thank you,
Lainey Campbell RN
CDI Specialist
[place] [facility]
Please use your independent medical judgment in providing your response.
--- NOTE | 2024-07-25 14:03 | PN.CDI ---
CDI
- -
CDI:
Physician Documentation Request
Admit Date: 07/22/24 05:12
Dear Doctor Linda,
Please review the following and provide your response in the progress notes.
Clinical Indicators:
Pt admitted with Sepsis 2/2 Right lower extremity Cellulitis / HX of PAD/DM/Lymphedema
Potassium levels are as below/Per MAR pt did get PO 20 meq KCL x2 and 40 MEQ KCL x 1 on 07/22
07/21/24 07/22/24
23:02 06:00
Potassium 3.3 L 3.4 L
Based on the above, could you clarify in the progress notes, the appropriate diagnosis, if significant, that supports the above abnormalities and additional evaluation, monitoring and/or treatment rendered:
Hypokalemia
Abnormal lab value
Other ( please specify)
Use of terms such as suspected, likely, concern for, or probable (associated with a specific diagnosis that is being evaluated, monitored, or treated as if it exists) are acceptable and can be coded in the inpatient setting, when documented at the
time of discharge.
Thank you,
Lainey Campbell RN
CDI Specialist
[place] [facility]
Please use your independent medical judgment in providing your response.
--- NOTE | 2024-07-25 14:09 | PN.CDI ---
CDI
- -
CDI:
Physician Documentation Request
Admit Date: 07/22/24 05:12
Dear Doctor Linda,
Please review the following and provide your response in the progress notes.
Current documentation includes a diagnosis of hypotension.
Clinical Indicators:
Pt admitted with Sepsis 2/2 Right lower extremity Cellulitis / HX of PAD/DM/Lymphedema
Progress notes 07/23 -07/25,' Hypotension likely secondary to hypovolemia Continue with midodrine Status post IV fluid bolus..'
Blood pressure/MAPS below / Did get 4 Liters of IVFs /Midodrine
Please clarify which of the following is the most likely etiology of the above symptoms and treatment rendered:
Septic shock
Hypovolemic shock
Hypotension only
Other ( please specify)
Use of terms such as suspected, likely, concern for, or probable (associated with a specific diagnosis that is being evaluated, monitored, or treated as if it exists) are acceptable and can be coded in the inpatient setting, when documented at the
time of discharge.
Thank you,
Lainey Campbell RN
CDI Specialist
[place] [facility]
Please use your independent medical judgment in providing your response.
[2024-07-25 15:00] VITALS: BP 123/54
--- NOTE | 2024-07-25 15:50 | W.PN.ID1 ---
Date of Service
Date of Service: July 25, 2024
Today's Communication
Continue antibiotics. See below�
Assessment / Plan
Severe right lower extremity cellulitis
Marked leukocytosis
Severe right lower extremity pain
Elevated CK
Tobacco abuse
CAD
HTN
DM
COPD
Dyslipidemia
Chronic bilateral lower extremity lymphedema
Recommendations:
Continue with vancomycin (d#5) for coverage of MRSA. Follow levels closely to prevent nephrotoxicity.
Continue with cefazolin (d#4). D/C further clindamycin.
Continue to monitor white count and temperature curve.
Lower extremity elevation as is possible. Leg is somewhat contracted; patient reports that it has been that way for at least the past year or so and cannot be extended.
Follow cultures.
����������������������������������������������������������
Chief Complaint
-: Leukocytosis and Cellulitis (Right lower extremity)
Subjective / Review of Systems
Patient seen and examined. No significant changes overnight. Still with significant right lower extremity discomfort
Vital Signs / Physical Exam
Vital Signs
Vital Signs
Temp Pulse Resp BP Pulse Ox
98.8 F 88 22 123/54 92
07/25/24 15:00 07/25/24 15:00 07/25/24 15:00 07/25/24 15:00 07/25/24 15:00
Physical Exam
Constitutional: Acutely Ill, Chronically Ill and Non-toxic
Cardiovascular: S1/S2; Negative S3/S4
Pulmonary: Clear and Non Labored
Gastrointestinal: Non Tender
Extremities: Edema (Right lower extremity) and Erythema (Moderate; right lower extremity, extending from patchy areas of erythema above the knee down to toes. Possible mild decrease in the overall erythema)
Musculoskeletal: Other (Left leg splinted and wrapped in Ronan wrap.)
Skin: Warm
Neurological: Awake and Alert
Psychological: Calm
Objective Data
Lab Data
Lab Results
07/25/24 07:39
07/25/24 07:39
Estimated Creat Clear 82 ml/min 07/25/24 07:39
Lactic Acid Cancelled 07/22/24 03:57
Total Bilirubin 0.5 mg/dl (0.2-1.3) 07/25/24 07:39
AST 27 U/L (17-59) 07/25/24 07:39
ALT < 10 U/L (0-50) 07/25/24 07:39
Alkaline Phosphatase 217 U/L (38-126) H 07/25/24 07:39
Most recent labs reviewed.
Micro Results:
07/22/24 00:28 Blood Culture - Preliminary
Blood/Venous No Growth in 72 hours- Final report to follow
07/22/24 00:28 Blood Culture - Preliminary
Blood/Venous No Growth in 72 hours- Final report to follow
07/22/24 00:28 Urine Culture - Final
Urine
07/22/24 18:26 Influenza Types A & B (GALINDO) - Final
Nasal Swab Negative for Influenza A & B, NAAT
Negative results must be combined with clinical observations
and patient history.
Nucleic Acid Amplification test (NAAT)performed on the
Magi[employer] platform.
Imaging:
07/22/2024 CT lower extremity with IV contrast: There is extensive edema in the subcutaneous tissues and musculature of the right foot, right lower leg and distal right thigh with overlying skin thickening. No confined or enhancing fluid collections
to suggest the presence of abscess. A right hip replacement is in satisfactory position. An intramedullary kathy in the mid and distal femoral diaphysis is traversed distally by 3 metallic screws. Please see full dictation for additional detail.
07/22/2024 Duplex ultrasound right lower extremity: Limited examination secondary to patient curled in position. Calf veins could not be assessed. No evidence of femoral/popliteal deep venous thrombosis. Please see full dictation for
additional detail.
07/22/2024 CT chest (PE study): No evidence of pulmonary embolism. Small right and trace left pleural effusion. Minor atelectasis noted. No evidence of pneumonia. Emphysematous changes noted.
[2024-07-25] MEDS: TYLENOL 650 MG PO (15:59)
[2024-07-25 16:20] LABS: Glucose - Point of Care 129 mg/dl (70-99)
--- NOTE | 2024-07-25 16:52 | VATNOTE ---
pt. refusing IV restart at this time and wants to leave AMA. PCN, Mellisa informed.
[2024-07-25] MEDS: LOVENOX 40 MG SC (17:25)
--- NOTE | 2024-07-25 20:07 | PTCARENOTE ---
Addendum entered by Nupur Tang RN 07/26/24 02:43:
Patient agreed to have IV line replaced to receive medications. Po Pain medication given with patient falling asleep for period of time.
Original Note:
Patient refusing to have IV line put back in.. RN spoke to patient about need for IV line for important medications such as ABT and pain medications. Patient continues to refuse and curse at RN. call center manager SALES FORCE ADMINISTRATOR notified and came up to unit to talk to
patient and patient continues to refuse IV site. SALES FORCE ADMINISTRATOR aware that patient refusing meds and will not receive HS dose of ABT.
[2024-07-25] MEDS: MYCOSTATIN CREAM TOPICAL (20:12)
[2024-07-25] MEDS: SENOKOT-S PO (20:12)
[2024-07-25] MEDS: ANCEF IV (20:12)
[2024-07-25] MEDS: DESENEX/MITRAZOL/ZEASORB TOPICAL (20:12)
[2024-07-25 22:19] LABS: Glucose - Point of Care 158 mg/dl (70-99)
--- NOTE | 2024-07-25 23:17 | PTCARENOTE ---
Patient agreed to have IV placed but refused vitals to be taken.
[2024-07-25 23:37] VITALS: BP 143/79
--- NOTE | 2024-07-26 02:26 | DOWNTIME ---
There was a [employer] Board Certified Orthotist Downtime on 07/26/2024 from 0100 to 07/26/2023 at 0205 . Downtime documentation of patient's care, including medication administrations, has been reconciled in the electronic record per guidelines. Refer to the
patient's paper chart under the miscellaneous tab to see printed paper medication records and downtime forms.
[2024-07-26] MEDS: TYLENOL 650 MG PO ×3 (02:36→20:05)
[2024-07-26] MEDS: ROXICODONE 5 MG PO ×3 (02:36→18:00)
[2024-07-26 03:11] VITALS: BP 152/77
[2024-07-26] MEDS: ANCEF 10 IV ×3 (04:25→20:07)
[2024-07-26 07:35] VITALS: BP 151/80
[2024-07-26 08:07] LABS: Glucose - Point of Care 122 mg/dl (70-99)
[2024-07-26] MEDS: NOVOLOG FLEXPEN-LOW RESISTANCE SC (09:14)
[2024-07-26] MEDS: MIRALAX 17 GRAMS PO (09:15)
[2024-07-26] MEDS: LIPITOR 20 MG PO (09:15)
[2024-07-26] MEDS: SENOKOT-S 1 TABLET PO ×2 (09:15→20:06)
[2024-07-26] MEDS: LOW STRENGTH ASPIRIN 81 MG PO (09:15)
[2024-07-26] MEDS: HYDROPHOR 1 APPLIC TOPICAL (09:16)
[2024-07-26] MEDS: MYCOSTATIN CREAM 1 APPLIC TOPICAL (09:16)
[2024-07-26] MEDS: DESENEX/MITRAZOL/ZEASORB 1 APPLIC TOPICAL (09:17)
[2024-07-26] MEDS: ProAmatine PO ×3 (09:45→17:55)
[2024-07-26 10:46] LABS: Hematocrit 28.1 % (39.0-52.0); Hemoglobin 9.1 g/dL (13.0-18.0); Mean Corp Hgb Conc. 32.4 g/dL (33.0-37.0); Mean Corpuscular Hgb 24.9 pg (27.0-31.0); Mean Corpuscular Volume 76.8 fL (80.0-94.0); Mean Platelet Volume 9.9 fL (7.4-10.4); Platelet Count 516 10^3/uL (130-400); Red Blood Cell Count 3.66 10^6/uL (4.70-6.10); Red Cell Dist. Width 18.3 % (11.5-14.5); White Blood Cell Count 23.6 10^3/uL (4.8-10.8)
[2024-07-26 10:54] LABS: Vancomycin Random 11.6 ug/ml
--- NOTE | 2024-07-26 11:12 | PHA.VAN.FU ---
Vancomycin Assessment / Plan
- Assessment
Renal Function: SCR Decreasing
WBC's are: Trending Down
In the past 24 hrs, patient has been: Afebrile
Concomitant Antimicrobials: cefazolin
- Assessment - Therapeutic Drug Monitoring
Random Level: 11.6 - drawn ~26H after previous dose of 1250mg
Patient with prolonged half-life yesterday based on levels
Upon further evaluation of prior dosing experience in 2020, patient's half-life was 15.4H at that time
Patient does not follow population-PK and will have accumulation on Q12H interval
Level today appropriate for once daily dosing and patient seems to be maintain levels on 1250mg daily
- Dosing Plan
Adjust Regimen to: Vanc 1250mg Q24H - first dose today then 0600
- Monitoring Plan
No level(s) ordered at this time: consider level(s) in next few days to assess new regimen
- Follow Up
Pharmacy will continue to follow.
Vancomycin Follow UP
- -
Patient Age: 68
Patient Sex: Male
Vancomycin Day #: 5
Indication: Skin And Soft Tissue
Requesting Provider: Dr. Abbott / Lindsay
Pertinent Antimicrobial Allergies:
NKDA
Height / Weight:
Height 6 ft 2 in
Actual Weight 102 kg
IBW in k.2
Adjusted BW in k.1
Pertinent Past Medical History: DM, splenectomy, lymphedema
- Vital Signs / Lab Results
Temp Pulse Resp BP Pulse Ox
97.3 F 91 18 151/80 96
07/26/24 07:35 07/26/24 09:45 07/26/24 07:35 07/26/24 09:45 07/26/24 07:35
Lab Results - Hematology
07/24/24 07/25/24 07/26/24
04:58 07:39 10:20
WBC 28.9 H 26.6 H 23.6 H
Lab Results - Chemistry
07/24/24 07/25/24
04:58 07:39
BUN 22 H 19
Creatinine 1.0 1.0
Estimated Creat Clear 82 82
Albumin 2.4 L 2.5 L
Microbiology Results
07/22/24 00:28 Blood Culture - Preliminary
Blood/Venous No Growth in 4 days- Final report to follow
07/22/24 00:28 Blood Culture - Preliminary
Blood/Venous No Growth in 4 days- Final report to follow
Therapeutic Drug Monitoring
Vancomycin Peak 23.1 ug/ml (18-26) 07/24/24 23:19
Vancomycin Trough 16.5 ug/ml (5-20) 07/25/24 07:39
Random Vancomycin 11.6 ug/ml 07/26/24 10:20
[2024-07-26 11:50] VITALS: BP 126/66
[2024-07-26 12:05] LABS: Glucose - Point of Care 202 mg/dl (70-99)
[2024-07-26] MEDS: FLUSH (NSS) 1 FLUSH IV (12:19)
[2024-07-26 12:40] LABS: ALT (SGPT) 10 U/L (0-50); AST (SGOT) 34 U/L (17-59); Albumin 2.6 g/dl (3.5-5.0); Alkaline Phosphatase 210 U/L (38-126); Blood Urea Nitrogen 15 mg/dl (9-20); Calcium 8.2 mg/dl (8.4-10.2); Carbon Dioxide 28 mmol/L (22-30); Chloride 98 mmol/L (98-107); Estimated Creatinine Clearance 103 ml/min; Glucose 157 mg/dl (70-99); Potassium 3.9 mmol/L (3.5-5.1); Sodium 135 mmol/L (135-145); Total Bilirubin 0.4 mg/dl (0.2-1.3); Total Protein 5.4 g/dl (6.3-8.2); eGFR > 60.00
[2024-07-26 12:50] LABS: % Basophils 0.3 % (0-2); % Eosinophils 0.6 % (0-6); % Immature Granulocytes 1.6 % (0-0.5); % Lymphocytes 1.7 % (20.5-51.1); % Monocytes 7.1 % (1.7-9.3); % Neutrophils 88.7 % (42.2-75.2); Absolute Basophils 0.1 10^3/uL (0-0.2); Absolute Eosinophils 0.1 10^3/uL (0-0.7); Absolute Immature Granulocytes 0.4 10^3/uL (0-0.05); Absolute Lymphocytes 0.4 10^3/uL (1.2-3.4); Absolute Monocytes 1.7 10^3/uL (0.1-0.6); Absolute Neutrophils 20.9 10^3/uL (1.4-6.5); Nucleated Red Blood Cells % 0.1 % (-)
[2024-07-26] MEDS: NOVOLOG FLEXPEN-LOW RESISTANCE 2 UNITS SC (13:18)
[2024-07-26] MEDS: VANCOCIN 275 MG IV (13:21)
[2024-07-26] MEDS: VENTOLIN NEBULES 2.5 MG INH (13:49)
--- NOTE | 2024-07-26 14:41 | W.PN.HOSP.TC ---
Today's Communication/Plan
-
Continue antibiotics
Repeat x-ray of the left tibia tomorrow
Speech evaluation
Aspiration precautions
Assessment / Plan
Assessment / Plan
68-year-old man with chronic lymphedema with severe right lower extremity pain
Chest [id number] opacity at each lung base right greater than left may represent subsegmental atelectasis or pneumonia findings suggestive of COPD
CT of the chest-PE study-no PE small right and trace left pleural effusion, atelectasis, COPD
On examination patient is awake and alert.
He states that he has shortness of breath and cough
Cardiovascular system S1-S2 appreciated
Chest few scattered rales
Abdomen soft and nontender
Right lower extremity edema significant redness
Left leg-immobilizer
Cannot fully extend knee joints
# Right lower extremity cellulitis possibly secondary to chronic lymphedema right heel wound and diabetes
Cellulitis was severe and moderately extensive with sepsis present on admission
Right heel DTI-present on admission
Blood cultures negative
Ultrasound with no femoral-popliteal DVT, calf veins could not be assessed
Continue IV vancomycin, Ancef . Off clindamycin
Right lower extremity CT did not show any evidence of soft tissue infection with abscess or fasciitis
Pain control patient is not very cooperative for
General Surgery was consulted and signed off
Infectious disease following-appreciated
# Hypotension secondary to hypovolemia-continue midodrine
Check echo
# Constipation-resolved
# Acute hypoxic respiratory insufficiency-likely secondary to pain and atelectasis
Continue incentive spirometry
Wean oxygen as tolerated
CXR noted.
Speech eval
# Diabetes-hemoglobin A1c 7
On metformin thousand twice daily as outpatient - Restart
Accu-Cheks and sliding scale coverage
# Twbwdilxiewv-nddniq-by
# Hypokalemia-resolved
# Hyperlipidemia-continue atorvastatin
# Chronic lymphedema lower extremity
# Fungal rash-continue topical antifungal
# Coronary artery disease per history
# Chronic hypercapnic respiratory failure/CO2 narcosis-suspected sleep apnea/COPD-needs to follow-up with pulmonary
# Proximal tibial fracture noted on x-ray 07-06-24-was seen in the ER and case discussed with Dr. Groves. Given patient was unable to extend at the knee knee immobilizer was not an option. A posterior long-leg splint with stirrup was placed and
outpatient orthopedics was recommended. Admission was recommended however patient was adamant to go home and not to a rehab facility at that time
Repeat x-ray in the morning
# Obesity per BMI
# Microscopic hematuria-repeat as outpatient
# Chronic ambulatory dysfunction-states that he has not walked for the past year and a half. Patient does not know why. Also cannot extend knees straight
# Hypoalbuminemia
# Ex-smoker
# DVT prophylaxis-subcutaneous Lovenox
# CODE STATUS-full code
Patient is not very cooperative for history taking or exam.
Discussed with nursing
Called and left a message for salesperson [employer] Adam
Anticipated Discharge: > 48 hours
Subjective/Interval History
-
Date of Service: July 26, 2024
Objective Data
-
Labs:
Laboratory Results
07/26/24
10:20
WBC 23.6 H
Hgb 9.1 L
Hct 28.1 L
Plt Count 516 H D
Sodium 135
Potassium 3.9
Chloride 98
Carbon Dioxide 28
BUN 15
Creatinine 0.8
Glucose 157 H
Calcium 8.2 L
Total Bilirubin 0.4
AST 34
ALT 10
Alkaline Phosphatase 210 H
Vital Signs:
Vital Signs
Temp Pulse Resp BP Pulse Ox
98.1 F 78 15 126/66 95
07/26/24 11:50 07/26/24 13:51 07/26/24 13:51 07/26/24 13:21 07/26/24 13:51
I&O
07/25/24 07/26/24 07/27/24
06:59 06:59 06:59
Intake Total 580 / 580 480 / 480
Output Total 800 / 800 1000 / 1000
Balance -220 / -220 -520 / -520
--- NOTE | 2024-07-26 14:54 | CM ---
Chart reviewed. Care ongoing.
Per chart, speech evaluation to be completed
Cont IV abx
Therapy signed off as pt has been refusing multiple times and presenting w/ aggressive behaviors. Will re-order PT/OT as needed
Plan: CM will cont to follow hospital course
--- NOTE | 2024-07-26 15:15 | PTOTSP ---
Addendum entered and electronically signed by ST Guido 07/26/24 16:20:
Correction to (4): TECHNICIAN TERMINAL AND REPEATER to sign off. Please reconsult as indicated
Original Note:
Speech Language Pathology
Pt seen for clinical bedside swallow evaluation. Pt lying almost flat and stated he was unable to sit up. Stated 'I would if I could.' Per RN, pt has been eating meals lying flat. Discussed risk of aspiration with this and concern from medical
staff that pt may aspirate at times. Pt stated 'good for them.' He did endorse some difficulty chewing some items on meal trays, but was unable to state which items.
P.O. trials provided, and pt was lying flat. Trialed regular solids and thin liquids provided. Adequate mastication, bolus formation, and A-P transit noted with no oral residue. No overt signs of aspiration.
Pt would not be able to sit upright for VSE and would likely refuse given refusal of many things this admission.
Recommend:
(1) Regular solids (easy to chew) and thin liquids
(2) Aspiration precautions: sit as upright as possible, slow rate
(3) Meds as tolerated
(4) TECHNICIAN TERMINAL AND REPEATER to follow, likely briefly
[2024-07-26 16:38] LABS: Vitamin D, 25-OH*** < 12.8 ng/mL (30-80)
[2024-07-26 17:38] LABS: Glucose - Point of Care 153 mg/dl (70-99)
[2024-07-26] MEDS: NOVOLOG FLEXPEN-LOW RESISTANCE 1 UNITS SC (17:53)
[2024-07-26] MEDS: GLUCOPHAGE 1000 MG PO (17:53)
[2024-07-26] MEDS: LOVENOX 40 MG SC (17:54)
[2024-07-26 18:42] LABS: Vitamin B12 391 pg/ml (239-931)
[2024-07-26] MEDS: MYCOSTATIN CREAM TOPICAL ×2 (20:06→20:13)
[2024-07-26] MEDS: DESENEX/MITRAZOL/ZEASORB TOPICAL ×2 (20:07→20:11)
[2024-07-26 20:58] LABS: Glucose - Point of Care 228 mg/dl (70-99)
[2024-07-26 23:43] VITALS: BP 115/54
[2024-07-27 02:54] VITALS: BP 123/65
[2024-07-27] MEDS: ANCEF 10 IV ×3 (03:47→19:05)
[2024-07-27] MEDS: VANCOCIN 275 MG IV (05:13)
[2024-07-27] MEDS: TYLENOL 650 MG PO ×2 (06:17→20:57)
[2024-07-27 07:15] VITALS: BP 171/83
[2024-07-27 07:48] LABS: Glucose - Point of Care 149 mg/dl (70-99)
[2024-07-27] MEDS: NOVOLOG FLEXPEN-LOW RESISTANCE SC ×3 (08:11→16:53)
[2024-07-27] MEDS: SENOKOT-S 1 TABLET PO ×2 (08:12→19:06)
[2024-07-27] MEDS: LIPITOR 20 MG PO (08:12)
[2024-07-27] MEDS: GLUCOPHAGE 1000 MG PO ×2 (08:12→16:57)
[2024-07-27] MEDS: ROXICODONE 5 MG PO ×3 (08:12→21:37)
[2024-07-27] MEDS: DESENEX/MITRAZOL/ZEASORB 1 APPLIC TOPICAL (08:12)
[2024-07-27] MEDS: LOW STRENGTH ASPIRIN 81 MG PO (08:12)
[2024-07-27] MEDS: HYDROPHOR 1 APPLIC TOPICAL (08:13)
[2024-07-27] MEDS: ProAmatine PO ×3 (08:13→16:54)
[2024-07-27] MEDS: MYCOSTATIN CREAM 1 APPLIC TOPICAL (08:13)
[2024-07-27] MEDS: MIRALAX 17 GRAMS PO (08:13)
[2024-07-27 09:32] LABS: % Basophils 0.3 % (0-2); % Eosinophils 0.7 % (0-6); % Immature Granulocytes 1.7 % (0-0.5); % Lymphocytes 2.6 % (20.5-51.1); % Monocytes 7.1 % (1.7-9.3); % Neutrophils 87.6 % (42.2-75.2); Absolute Basophils 0.1 10^3/uL (0-0.2); Absolute Eosinophils 0.1 10^3/uL (0-0.7); Absolute Immature Granulocytes 0.3 10^3/uL (0-0.05); Absolute Lymphocytes 0.5 10^3/uL (1.2-3.4); Absolute Monocytes 1.4 10^3/uL (0.1-0.6); Absolute Neutrophils 17.3 10^3/uL (1.4-6.5); Hematocrit 29.3 % (39.0-52.0); Hemoglobin 9.2 g/dL (13.0-18.0); Mean Corp Hgb Conc. 31.4 g/dL (33.0-37.0); Mean Corpuscular Hgb 24.3 pg (27.0-31.0); Mean Corpuscular Volume 77.5 fL (80.0-94.0); Mean Platelet Volume 9.8 fL (7.4-10.4); Nucleated Red Blood Cells % 0.1 % (-); Platelet Count 546 10^3/uL (130-400); Red Blood Cell Count 3.78 10^6/uL (4.70-6.10); Red Cell Dist. Width 18.2 % (11.5-14.5); White Blood Cell Count 19.7 10^3/uL (4.8-10.8)
--- NOTE | 2024-07-27 09:48 | W.PN.HOSP.TC ---
Addendum entered and electronically signed by Nohemi Robison MD 07/27/24 15:35:
Ortho will stop by in the morning , review X rays and write a note.
Addendum entered and electronically signed by Nohemi Robison MD 07/27/24 15:22:
Spoke to patient's niece in law Gonsalo [phone]
[phone]
Updated on patient's cellulitis. Echo. Need for PFTs and sleep study as outpatient. Also discussed about his knee patient has not walked for the past year and a half , he follows with Dr. Groves. He has seen him for the fracture and conservative
management was planned. He is supposed to follow-up with Dr. Delgadillo tomorrow but needs requested if we can do it here since he is at in the hospital now.
Dr. Groves wanted him to follow-up with physical therapy to get the hamstrings worked at however has not materialized.
Patient lives at home and nephew takes care of him. He does not want to go to rehab.
Also discussed about echo findings
time spent over 50 min
Original Note:
Today's Communication/Plan
-
Finally right leg is starting to look better. Continue IV antibiotics
White count is coming down
Bowels regimen ordered
Assessment / Plan
Assessment / Plan
68-year-old man with chronic lymphedema with severe right lower extremity pain
Chest z-fns-ljveff opacity at each lung base right greater than left may represent subsegmental atelectasis or pneumonia findings suggestive of COPD
CT of the chest-PE study-no PE small right and trace left pleural effusion, atelectasis, COPD
Echo 1 33-42-gfpqev LV size and systolic function. EF 55%. No obvious regional wall motion abnormalities. Mild concentric LVH. Normal RV size and function.
' Can I go home?'
On examination patient is awake and alert.
Cardiovascular system S1-S2 appreciated
Chest few scattered rales
Abdomen soft and nontender
Right lower extremity edema , redness m,uch better edema better
Left leg-immobilizer
Cannot fully extend knee joints both sides.
# Right lower extremity cellulitis possibly secondary to chronic lymphedema right heel wound and diabetes
Cellulitis was severe and moderately extensive with sepsis present on admission
Right heel DTI-present on admission
Blood cultures negative
Ultrasound with no femoral-popliteal DVT, calf veins could not be assessed
Continue IV vancomycin, Ancef . Off clindamycin
Right lower extremity CT did not show any evidence of soft tissue infection with abscess or fasciitis
Pain control patient is not very cooperative for
General Surgery was consulted and signed off
Infectious disease following-appreciated
# Hypotension secondary to hypovolemia-continue midodrine
Echo 41-80-eshmhu LV size and systolic function. EF 55%. No obvious regional wall motion abnormalities. Mild concentric LVH. Normal RV size and function.
# Constipation-resolved
# Acute hypoxic respiratory insufficiency-likely secondary to pain and atelectasis
Continue incentive spirometry
Off oxygen now
CXR noted.
Speech eval appreciated-no aspiration
# Diabetes-hemoglobin A1c 7
On metformin thousand twice daily as outpatient - Restarted
Accu-Cheks and sliding scale coverage
# [id number]-kgjmfu-ed
# Anemia-replace low normal B12. Check iron studies
# Vitamin D deficiency-replace
# Hypokalemia-resolved
# Hyperlipidemia-continue atorvastatin
# Chronic lymphedema lower extremity
# Fungal rash-continue topical antifungal
# Coronary artery disease per history-continue aspirin and statin
# Chronic hypercapnic respiratory failure/CO2 narcosis-suspected sleep apnea/COPD-needs to follow-up with pulmonary
# Proximal tibial fracture noted on x-ray 07-06-24-was seen in the ER and case discussed with Dr. Groves. Given patient was unable to extend at the knee knee immobilizer was not an option. A posterior long-leg splint with stirrup was placed and
outpatient orthopedics was recommended. Admission was recommended however patient was adamant to go home and not to a rehab facility at that time
Repeat x-ray noted. Fracture is healing.
# Obesity per BMI
# Microscopic hematuria-repeat as outpatient
# Chronic ambulatory dysfunction-states that he has not walked for the past year and a half. Patient does not know why. Also cannot extend knees straight
# Hypoalbuminemia
# Ex-smoker
# DVT prophylaxis-subcutaneous Lovenox
# CODE STATUS-full code
Discussed with nursing
Left a message for brother yesterday
Left a message for patient's niece today-[phone]
Anticipated Discharge: > 48 hours
Subjective/Interval History
-
Date of Service: July 27, 2024
Objective Data
-
Labs:
Laboratory Results
07/27/24
09:14
WBC 19.7 H
Hgb 9.2 L
Hct 29.3 L
Plt Count 546 H
Sodium Pending
Potassium Pending
Chloride Pending
Carbon Dioxide Pending
BUN Pending
Creatinine Pending
Glucose Pending
Calcium Pending
Total Bilirubin Pending
AST Pending
ALT Pending
Alkaline Phosphatase Pending
Vital Signs:
Vital Signs
Temp Pulse Resp BP Pulse Ox
98.7 F 94 22 171/83 96
07/27/24 07:15 07/27/24 07:15 07/27/24 07:15 07/27/24 08:13 07/27/24 07:15
I&O
07/26/24 07/27/24 07/28/24
06:59 06:59 06:59
Intake Total 480 / 480 480 / 480
Output Total 1000 / 1000 1350 / 1350
Balance -520 / -520 -870 / -870
[2024-07-27 10:06] LABS: ALT (SGPT) < 10 U/L (0-50); AST (SGOT) 33 U/L (17-59); Albumin 2.5 g/dl (3.5-5.0); Alkaline Phosphatase 213 U/L (38-126); Blood Urea Nitrogen 12 mg/dl (9-20); Calcium 7.8 mg/dl (8.4-10.2); Carbon Dioxide 28 mmol/L (22-30); Chloride 98 mmol/L (98-107); Estimated Creatinine Clearance 117 ml/min; Glucose 131 mg/dl (70-99); Potassium 3.9 mmol/L (3.5-5.1); Sodium 135 mmol/L (135-145); Total Bilirubin 0.5 mg/dl (0.2-1.3); Total Protein 5.3 g/dl (6.3-8.2); eGFR > 60.00
--- NOTE | 2024-07-27 10:13 | PHA.VAN.FU ---
Vancomycin Assessment / Plan
- Assessment
Renal Function: Stable
WBC's are: Trending Down
In the past 24 hrs, patient has been: Afebrile
Concomitant Antimicrobials: cefazolin
- Dosing Plan
Continue: Vanc 1250mg Q24H
- Monitoring Plan
No level(s) ordered at this time: consider levels in next few days
- Follow Up
Pharmacy will continue to follow.
Vancomycin Follow UP
- -
Patient Age: 68
Patient Sex: Male
Vancomycin Day #: 6
Indication: Skin And Soft Tissue
Requesting Provider: Dr. Abbott / Lindsay
Pertinent Antimicrobial Allergies:
NKDA
Height / Weight:
Height 6 ft 2 in
Actual Weight 102 kg
IBW in k.2
Adjusted BW in k.1
Pertinent Past Medical History: DM, splenectomy, lymphedema
- Vital Signs / Lab Results
Temp Pulse Resp BP Pulse Ox
98.7 F 94 22 171/83 96
07/27/24 07:15 07/27/24 07:15 07/27/24 07:15 07/27/24 08:13 07/27/24 07:15
Lab Results - Hematology
07/25/24 07/26/24 07/27/24
07:39 10:20 09:14
WBC 26.6 H 23.6 H 19.7 H
Lab Results - Chemistry
07/25/24 07/26/24 07/27/24
07:39 10:20 09:14
BUN 19 15 12
Creatinine 1.0 0.8 0.7
Estimated Creat Clear 82 103 117
Albumin 2.5 L 2.6 L 2.5 L
Microbiology Results
07/22/24 00:28 Blood Culture - Final
Blood/Venous No Growth - Final Report
07/22/24 00:28 Blood Culture - Final
Blood/Venous No Growth - Final Report
Therapeutic Drug Monitoring
Vancomycin Peak 23.1 ug/ml (18-26) 07/24/24 23:19
Vancomycin Trough 16.5 ug/ml (5-20) 07/25/24 07:39
Random Vancomycin 11.6 ug/ml 07/26/24 10:20
[2024-07-27 10:33] LABS: Iron 26 ug/dl (49-181)
[2024-07-27 10:42] LABS: Percent Saturation 12 % (20-50); Total Iron Binding Capacity 203 ug/dl (261-462)
[2024-07-27] MEDS: DRISDOL (VITAMIN D2) 50000 UNITS PO (10:56)
[2024-07-27] MEDS: SENOKOT 17.2 MG PO ×2 (10:56→19:06)
[2024-07-27] MEDS: MILK OF MAGNESIA 30 ML PO (10:57)
[2024-07-27] MEDS: DILAUDID 1 MG IV (10:58)
[2024-07-27 11:38] VITALS: BP 140/58
[2024-07-27 11:54] LABS: Glucose - Point of Care 130 mg/dl (70-99)
--- NOTE | 2024-07-27 16:14 | PTCARENOTE ---
Pt refusing 1500 vitals and wound care. Dr Robison made aware. Pt states ' I just want to sleep leave me alone'. Will continue to monitor and try again later.
--- NOTE | 2024-07-27 16:45 | W.PN.ID1 ---
Date of Service
Date of Service: July 27, 2024
Today's Communication
Continue antibiotics. Narrow to cefazolin alone.
Assessment / Plan
Severe right lower extremity cellulitis
Marked leukocytosis
Severe right lower extremity pain
Elevated CK
Tobacco abuse
CAD
HTN
DM
COPD
Dyslipidemia
Chronic bilateral lower extremity lymphedema
Recommendations:
Overall, there appears to be some improvement in the degree of cellulitis.
Would attempt lower extremity compression with light application of Ronan wrap's.
Consolidate antibiotics to Ancef alone.
Continue to monitor white count and temperature curve.
Lower extremity elevation as is possible. Leg is somewhat contracted; patient reports that it has been that way for at least the past year or so and cannot be extended.
����������������������������������������������������������
Chief Complaint
-: Leukocytosis and Cellulitis (Right lower extremity)
Subjective / Review of Systems
Patient seen and examined. Reports slightly decreased pain in the right leg.
Review of Systems: No Fever and No Chills
Vital Signs / Physical Exam
Vital Signs
Vital Signs
Temp Pulse Resp BP Pulse Ox
97.6 F 58 20 140/58 98
07/27/24 11:38 07/27/24 11:38 07/27/24 11:38 07/27/24 11:38 07/27/24 11:38
Physical Exam
Constitutional: Acutely Ill, Chronically Ill and Non-toxic
Cardiovascular: S1/S2; Negative S3/S4
Pulmonary: Clear and Non Labored
Gastrointestinal: Non Tender
Extremities: Edema (Right lower extremity) and Erythema (Moderate; right lower extremity. Possible mild decrease in the overall erythema.)
Musculoskeletal: Other (Left leg splinted and wrapped in Ronan wrap.)
Skin: Warm
Neurological: Awake and Alert
Psychological: Calm
Objective Data
Lab Data
Lab Results
07/27/24 09:14
07/27/24 09:14
Estimated Creat Clear 117 ml/min 07/27/24 09:14
Lactic Acid Cancelled 07/22/24 03:57
Total Bilirubin 0.5 mg/dl (0.2-1.3) 07/27/24 09:14
AST 33 U/L (17-59) 07/27/24 09:14
ALT < 10 U/L (0-50) 07/27/24 09:14
Alkaline Phosphatase 213 U/L (38-126) H 07/27/24 09:14
Most recent labs reviewed.
Micro Results:
07/22/24 00:28 Blood Culture - Final
Blood/Venous No Growth - Final Report
07/22/24 00:28 Blood Culture - Final
Blood/Venous No Growth - Final Report
07/22/24 00:28 Urine Culture - Final
Urine
07/22/24 18:26 Influenza Types A & B (GALINDO) - Final
Nasal Swab Negative for Influenza A & B, NAAT
Negative results must be combined with clinical observations
and patient history.
Nucleic Acid Amplification test (NAAT)performed on the
[employer] NOW platform.
Imaging:
07/22/2024 CT lower extremity with IV contrast: There is extensive edema in the subcutaneous tissues and musculature of the right foot, right lower leg and distal right thigh with overlying skin thickening. No confined or enhancing fluid collections
to suggest the presence of abscess. A right hip replacement is in satisfactory position. An intramedullary kathy in the mid and distal femoral diaphysis is traversed distally by 3 metallic screws. Please see full dictation for additional detail.
07/22/2024 Duplex ultrasound right lower extremity: Limited examination secondary to patient curled in position. Calf veins could not be assessed. No evidence of femoral/popliteal deep venous thrombosis. Please see full dictation for
additional detail.
07/22/2024 CT chest (PE study): No evidence of pulmonary embolism. Small right and trace left pleural effusion. Minor atelectasis noted. No evidence of pneumonia. Emphysematous changes noted.
[2024-07-27 16:46] LABS: Glucose - Point of Care 110 mg/dl (70-99)
[2024-07-27] MEDS: LOVENOX 40 MG SC (16:57)
[2024-07-27] MEDS: OCEAN, SALINE MIST 1 SPRAYS NASAL (16:57)
[2024-07-27] MEDS: MYCOSTATIN CREAM TOPICAL (19:20)
[2024-07-27] MEDS: DESENEX/MITRAZOL/ZEASORB TOPICAL (19:20)
[2024-07-27 19:32] VITALS: BP 144/77
[2024-07-27 21:37] LABS: Glucose - Point of Care 136 mg/dl (70-99)
[2024-07-27 23:17] VITALS: BP 95/55
[2024-07-28] MEDS: ROXICODONE 5 MG PO ×3 (02:56→17:10)
[2024-07-28 03:38] VITALS: BP 126/65
[2024-07-28] MEDS: ANCEF 10 IV ×3 (03:47→19:26)
--- NOTE | 2024-07-28 07:08 | W.PN.HOSP.TC ---
Today's Communication/Plan
-
cont abx as per ID
mucinex, robitussin prn
pain control
NWB LLE maintain splint
Assessment / Plan
Assessment / Plan
Physical Exam
General: mild moderate distress due to severe coughing episode, gradually improving with cessation cough
HEENT: normocephalic atraumatic moist mucous membrane:
Pulm: clear to auscultation b/l
Cardio: S1/S2 no murmurs rubs gallops
Abd: soft nontender bowel sounds present
Ext: RLE erythema edema LLE leg-immobilizer
Neuro: Lethargic but Arousable oriented x3
68M NIDDM Chronic Lymphedema HLD Smoking Obesity LLE proximal Tibia Fx
Chest j-yeq-xsbhcc opacity at each lung base right greater than left may represent subsegmental atelectasis or pneumonia findings suggestive of COPD
CT of the chest-PE study-no PE small right and trace left pleural effusion, atelectasis, COPD
Echo 1 55-73-taxymn LV size and systolic function. EF 55%. No obvious regional wall motion abnormalities. Mild concentric LVH. Normal RV size and function.
# Right lower extremity cellulitis possibly secondary to chronic lymphedema right heel wound and diabetes
Cellulitis was severe and moderately extensive with sepsis present on admission
Right heel DTI-present on admission
Blood cultures negative
Ultrasound with no femoral-popliteal DVT, calf veins could not be assessed
Continue IV Ancef . Off clindamycin Vancomycin
Right lower extremity CT did not show any evidence of soft tissue infection with abscess or fasciitis
Pain control
General Surgery was consulted and signed off
Infectious disease following-appreciated
# Hypotension secondary to hypovolemia-continue midodrine
Echo 1 28-44-noupsn LV size and systolic function. EF 55%. No obvious regional wall motion abnormalities. Mild concentric LVH. Normal RV size and function.
# Constipation-resolved
# Acute hypoxic respiratory insufficiency-likely secondary to pain and atelectasis
#Coughing
Continue incentive spirometry
CXR noted.
Speech eval appreciated-no aspiration
Supplemental oxygen for comfort prn (patient continues to saturate well on room air but has subjective feelings shortness breath followings severe coughing episodes)
Mucinex, Robitussin prn
# Diabetes-hemoglobin A1c 7
On metformin thousand twice daily as outpatient - Restarted
Accu-Cheks and sliding scale coverage
# [id number]-wqmfzg-rw
# Anemia-replace low normal B12. Iron Deficiency Anemia with likely component Anemia of Chronic Disease. IV iron supplementation started 07/28/24
# Vitamin D deficiency-replace
# Hypokalemia-resolved
# Hyperlipidemia-continue atorvastatin
# Chronic lymphedema lower extremity
# Fungal rash-continue topical antifungal
# Coronary artery disease per history-continue aspirin and statin
# Chronic hypercapnic respiratory failure/CO2 narcosis-suspected sleep apnea/COPD-needs to follow-up with pulmonary
# Proximal tibial fracture noted on x-ray 07-06-24-was seen in the ER and case discussed with Dr. Groves. Given patient was unable to extend at the knee knee immobilizer was not an option. A posterior long-leg splint with stirrup was placed and
outpatient orthopedics was recommended. Admission was recommended however patient was adamant to go home and not to a rehab facility at that time
Repeat x-ray noted. Fracture is healing.
Ortho eval appreciated
-maintin NWB LLE in splint
-splint may be taken down for daily skin chekcs and then reapplied
-Repeat Lt Knee X-rays in 4 wks (scripts to be provided on discharge results to be forwarded to Orthopedic), outpt follow up
# Obesity per BMI
# Microscopic hematuria-repeat as outpatient
# Chronic ambulatory dysfunction-states that he has not walked for the past year and a half. Uncooperative with PT/OT eval
# Hypoalbuminemia
# Ex-smoker
# DVT prophylaxis-subcutaneous Lovenox
# CODE STATUS-full code
I spent a total of 50 minutes with the patient or on the floor. More than 50% of this time involved counseling and coordination of care.
Anticipated Discharge: 24 - 48 hours
Subjective/Interval History
-
Date of Service: July 28, 2024
severe coughing eventually resolved but residual symptoms nausea subjective feelings shortness of breath though saturating well on room air. Symptomatically improved with low dose supplemental oxygen.
Objective Data
-
Labs:
Laboratory Results
07/28/24
06:00
WBC Pending
Hgb Pending
Hct Pending
Plt Count Pending
Vital Signs:
Vital Signs
Temp Pulse Resp BP Pulse Ox
98.6 F 98 18 126/65 93
07/27/24 23:17 07/28/24 03:38 07/28/24 03:38 07/28/24 03:38 07/28/24 03:38
I&O
07/27/24 07/28/24 07/29/24
06:59 06:59 06:59
Intake Total 480 / 480 840 / 840
Output Total 1350 / 1350 1175 / 1175
Balance -870 / -870 -335 / -335
--- NOTE | 2024-07-28 07:37 | CON.ORTHO ---
Consultation
-
Date/Time Consultation Requested: 07/27/2024 @ 15:42
Date/Time Consultation Performed: 07/28/2024 @ 7:00 AM
Requesting Provider: Nohemi Robison MD
Performing Provider: Darion Alvarado PA-C for Dr. Molina/Truong
Reason for Consultation: Left Proximal Tibia Fracture
Consultation - Orthopedics
History
HPI: The patient is a 68-year-old male with a past medical history significant for CAD, hypertension, ajl-gnjxhux-wcpcrqwig diabetes, chronic lymphedema, hyperlipidemia, and smoking history who presented to [facility] Emergency Department
on 07/21/2024 with right lower extremity pain. He is currently being treated for right lower extremity cellulitis. He was previously seen in the Emergency Department on 07/06/2024 after he sustained a left lower extremity injury. He states that
during attempted transfer he fell striking his left knee on the hardwood. His left lower extremity injury occurred 1 week prior to evaluation in the ED on 07/06/2024. He is now approximately 4 weeks removed from his date of injury. He was diagnosed
with a left proximal tibia fracture. He was placed into a posterior long-leg splint with stirrup and was instructed to follow-up with Orthopedics as an outpatient. He was tentatively scheduled to see Dr. Guerin today as an outpatient, however this
was rescheduled due to current admission. The patient reports that he has not ambulated for about the last 1.5 years. He is wheelchair-bound and only weightbears with transferring. He denies any significant pain about his left lower extremity. He
denies any paresthesias. Repeat x-rays of the left tib-fib were obtained on 07/27/2024. Orthopedic surgery was was consulted regarding treatment recommendations moving forward for his left proximal tibia fracture.
PAST MEDICAL HISTORY: CAD, COPD, Hypercholesterolemia, NIDDM, Chronic Lymphedema.
PAST SURGICAL HISTORY: Right Total Hip Arthroplasty, Splenectomy.
SOCIAL HISTORY: Reports tobacco use. Denies alcohol use. Denies illicit drug use. Lives with family.
FAMILY HISTORY: Non-contributory.
REVIEW OF SYSTEMS: 12-point review of systems obtained and negative except those mentioned in the HPI.
Allergies / Home Medications
Allergy/AdvReac Type Severity Reaction Status Date / Time
No Known Allergies Allergy Verified 07/08/23 14:38
�Medication �Instructions �Recorded
aspirin 81 mg chewable tablet 81 mg PO DAILY Blood clot 11/12/20
prevention/tx
atorvastatin 20 mg tablet 20 mg PO DAILY High cholesterol 11/12/20
metformin 500 mg tablet,extended 1,000 mg PO BID@0800,1700 Diabetes 05/12/23
release 24 hr
Vital Signs / Lab Results
Temp Pulse Resp BP Pulse Ox
98.6 F 98 18 126/65 93
07/27/24 23:17 07/28/24 03:38 07/28/24 03:38 07/28/24 03:38 07/28/24 03:38
07/27/24 09:14
RADIOGRAPHIC FINDINGS:
CR Leg Tibia/Fibula LEFT 2 Views was obtained at [facility] on 07/27/2024 and was personally reviewed by myself today. Impression: Slight interval healing of comminuted impacted proximal tibia metadiaphyseal fracture. Partially visualized
regional joints demonstrate degenerative changes. Soft tissues are grossly unremarkable.
PHYSICAL EXAM:
General: Appears in distress/pain secondary to RLE.
HEENT: NCAT, sclera anicteric, normal conversational hearing.
Heart: No JVD.
Lungs: Normal work of breathing on room air.
MSK: Focused examination of the left lower extremity reveals splint in place. This was taken down to reveal skin wrinkles present. Mild tenderness to palpation over the proximal tibia. No reproducible tenderness to palpation elsewhere. Knee ROM
deferred due to known fracture. Able to wiggle all toes. Sensation intact to light touch. Capillary refill is less than 2 seconds.
Assessment / Plan
ASSESSMENT: 68-year-old male with a comminuted impacted proximal tibia metadiaphyseal fracture. Approximately 4 weeks removed from date of injury.
PLAN: Radiographs and plan of care discussed with Dr. Guerin.
1) Maintain NWB to LLE in splint.
2) No Knee ROM.
3) Splint may be taken down for daily skin checks and then reapplied.
4) Recommend repeat x-rays of left knee in 4 weeks. He may follow-up as an outpatient upon discharge for management of his left proximal tibia fracture. Please provide x-ray script to obtain films prior to office visit.
5) Orthopedic surgery will sign-off at this time. Please reengage with any further questions or concerns
[2024-07-28 07:50] LABS: Glucose - Point of Care 105 mg/dl (70-99)
[2024-07-28] MEDS: NOVOLOG FLEXPEN-LOW RESISTANCE SC ×3 (07:51→17:03)
[2024-07-28 07:59] VITALS: BP 140/78
[2024-07-28] MEDS: DESENEX/MITRAZOL/ZEASORB TOPICAL ×2 (08:25→19:30)
[2024-07-28] MEDS: MYCOSTATIN CREAM TOPICAL ×2 (08:25→19:31)
[2024-07-28] MEDS: HYDROPHOR TOPICAL (08:25)
[2024-07-28] MEDS: ProAmatine PO ×2 (08:26→11:26)
[2024-07-28] MEDS: LOW STRENGTH ASPIRIN 81 MG PO (08:28)
[2024-07-28] MEDS: LIPITOR 20 MG PO (08:28)
[2024-07-28] MEDS: GLUCOPHAGE 1000 MG PO ×2 (08:28→17:10)
[2024-07-28] MEDS: VITAMIN D3 (cholecalciferol) 50 MCG PO (08:28)
[2024-07-28] MEDS: SENOKOT-S 1 TABLET PO ×2 (08:28→19:32)
[2024-07-28] MEDS: SENOKOT 17.2 MG PO ×2 (08:28→19:31)
[2024-07-28] MEDS: VITAMIN B-12 1000 MCG PO (08:28)
[2024-07-28] MEDS: MIRALAX 17 GRAMS PO (08:29)
[2024-07-28 11:05] VITALS: BP 134/63
[2024-07-28 12:01] LABS: Glucose - Point of Care 106 mg/dl (70-99)
[2024-07-28] MEDS: MUCINEX 600 MG PO ×2 (12:38→19:29)
--- NOTE | 2024-07-28 13:35 | CM ---
Chart reviewed for d/c planning.
Pt cont IV abx.
Pt may benefit from PT/OT, will have to re-order as pt been refusing last few attempts.
--- NOTE | 2024-07-28 14:09 | W.PN.ID1 ---
Date of Service
Date of Service: July 28, 2024
Today's Communication
Continue cefazolin.
Assessment / Plan
Severe right lower extremity cellulitis
Marked leukocytosis
Severe right lower extremity pain
Elevated CK
Tobacco abuse
CAD
HTN
DM
COPD
Dyslipidemia
Chronic bilateral lower extremity lymphedema
Recommendations:
Overall, there appears to be some improvement in the degree of cellulitis.
Continue lower extremity compression with light application of Ronan wrap's.
Continue cefazolin
Continue to monitor white count and temperature curve.
Lower extremity elevation as is possible. Leg is somewhat contracted; patient reports that it has been that way for at least the past year or so and cannot be extended.
����������������������������������������������������������
Chief Complaint
-: Leukocytosis and Cellulitis (Right lower extremity)
Subjective / Review of Systems
c/o SOB.
Right leg redness better.
Vital Signs / Physical Exam
Vital Signs
Vital Signs
Temp Pulse Resp BP Pulse Ox
98.5 F 97 18 134/63 93
07/28/24 11:05 07/28/24 11:05 07/28/24 11:05 07/28/24 11:05 07/28/24 11:05
Physical Exam
Constitutional: Acutely Ill and Chronically Ill
Cardiovascular: S1/S2
Pulmonary: Clear (anteriorly)
Gastrointestinal: Non Tender
Extremities: Edema (Right lower extremity) and Erythema (Moderate; right lower extremity. [place] erythema foot to up the bernard, mildly warm, skin dry)
Musculoskeletal: Other (Left leg splinted and wrapped in Ronan wrap.)
Neurological: Awake and Alert
Psychological: Calm
Objective Data
Lab Data
Lab Results
07/27/24 09:14
Estimated Creat Clear 117 ml/min 07/27/24 09:14
Lactic Acid Cancelled 07/22/24 03:57
Total Bilirubin 0.5 mg/dl (0.2-1.3) 07/27/24 09:14
AST 33 U/L (17-59) 07/27/24 09:14
ALT < 10 U/L (0-50) 07/27/24 09:14
Alkaline Phosphatase 213 U/L (38-126) H 07/27/24 09:14
Most recent labs reviewed.
Micro Results:
07/22/24 00:28 Blood Culture - Final
Blood/Venous No Growth - Final Report
07/22/24 00:28 Blood Culture - Final
Blood/Venous No Growth - Final Report
07/22/24 00:28 Urine Culture - Final
Urine
07/22/24 18:26 Influenza Types A & B (GALINDO) - Final
Nasal Swab Negative for Influenza A & B, NAAT
Negative results must be combined with clinical observations
and patient history.
Nucleic Acid Amplification test (NAAT)performed on the
[employer] platform.
Imaging:
07/22/2024 CT lower extremity with IV contrast: There is extensive edema in the subcutaneous tissues and musculature of the right foot, right lower leg and distal right thigh with overlying skin thickening. No confined or enhancing fluid collections
to suggest the presence of abscess. A right hip replacement is in satisfactory position. An intramedullary kathy in the mid and distal femoral diaphysis is traversed distally by 3 metallic screws. Please see full dictation for additional detail.
07/22/2024 Duplex ultrasound right lower extremity: Limited examination secondary to patient curled in position. Calf veins could not be assessed. No evidence of femoral/popliteal deep venous thrombosis. Please see full dictation for
additional detail.
07/22/2024 CT chest (PE study): No evidence of pulmonary embolism. Small right and trace left pleural effusion. Minor atelectasis noted. No evidence of pneumonia. Emphysematous changes noted.
[2024-07-28] MEDS: FERRLECIT 110 MG IV (15:03)
[2024-07-28 15:53] VITALS: BP 103/54
[2024-07-28 17:02] LABS: Glucose - Point of Care 120 mg/dl (70-99)
[2024-07-28] MEDS: LOVENOX 40 MG SC (17:10)
[2024-07-28] MEDS: ProAmatine 5 MG PO (17:10)
[2024-07-28 19:00] VITALS: BP 132/72
[2024-07-28] MEDS: ROBITUSSIN 200 MG PO (20:06)
--- NOTE | 2024-07-28 20:30 | PTCARENOTE ---
Pt complains that his right heal dressing is too tight and causing him pain. This RN loosened already lightly wrapped dressing, but pt continuse to complain that dressing is causing him pain. This RN removed dressing and applied new dressing, but pt
continues to complain about dressing and wants dressing removed. RN educated pt in importance of dressing and maintaining a clean dressing. Pt refused to keep dressing. Provider aware.
[2024-07-28 23:00] VITALS: BP 134/78
[2024-07-29] MEDS: ROXICODONE 5 MG PO ×4 (00:15→22:25)
[2024-07-29] MEDS: ANCEF 10 IV ×3 (04:32→20:45)
[2024-07-29 07:08] VITALS: BP 144/71
--- NOTE | 2024-07-29 07:20 | W.PN.HOSP.TC ---
Today's Communication/Plan
-
cont abx as per ID
mucinex, robitussin prn
pain control
NWB LLE maintain splint
IV iron supplementation
Assessment / Plan
Assessment / Plan
Physical Exam
General: mild moderate distress due to severe coughing episode, gradually improving with cessation cough
HEENT: normocephalic atraumatic moist mucous membrane:
Pulm: clear to auscultation b/l
Cardio: S1/S2 no murmurs rubs gallops
Abd: soft nontender bowel sounds present
Ext: RLE erythema edema LLE leg-immobilizer
Neuro: AOx3
68M NIDDM Chronic Lymphedema HLD Smoking Obesity LLE proximal Tibia Fx
Chest m-poj-thouaw opacity at each lung base right greater than left may represent subsegmental atelectasis or pneumonia findings suggestive of COPD
CT of the chest-PE study-no PE small right and trace left pleural effusion, atelectasis, COPD
Echo 1 28-27-vopzco LV size and systolic function. EF 55%. No obvious regional wall motion abnormalities. Mild concentric LVH. Normal RV size and function.
# Right lower extremity cellulitis possibly secondary to chronic lymphedema right heel wound and diabetes
Cellulitis was severe and moderately extensive with sepsis present on admission
Right heel DTI-present on admission
Blood cultures negative
Ultrasound with no femoral-popliteal DVT, calf veins could not be assessed
Continue IV Ancef . Off clindamycin Vancomycin
Right lower extremity CT did not show any evidence of soft tissue infection with abscess or fasciitis
Pain control
General Surgery was consulted and signed off
Infectious disease following-appreciated
# Hypotension secondary to hypovolemia-continue midodrine
Echo 1 88-44-[id number] LV size and systolic function. EF 55%. No obvious regional wall motion abnormalities. Mild concentric LVH. Normal RV size and function.
# Constipation-resolved
# Acute hypoxic respiratory insufficiency-likely secondary to pain and atelectasis
#Coughing
Continue incentive spirometry
CXR noted.
Speech eval appreciated-no aspiration
Mucinex, Robitussin prn
# Diabetes-hemoglobin A1c 7
On metformin thousand twice daily as outpatient - Restarted
Accu-Cheks and sliding scale coverage
# Mild Hyponatremia
monitor
# Anemia
#Iron Deficiency Anemia with likely component Anemia of Chronic Disease.
IV iron supplementation started 07/28/24
replace low normal B12.
# Vitamin D deficiency-replace
# Hypokalemia-resolved
# Hyperlipidemia-continue atorvastatin
# Chronic lymphedema lower extremity
# Fungal rash-continue topical antifungal
# Coronary artery disease per history-continue aspirin and statin
# Chronic hypercapnic respiratory failure/CO2 narcosis-suspected sleep apnea/COPD-needs to follow-up with pulmonary
# Proximal tibial fracture noted on x-ray 07-06-24-was seen in the ER and case discussed with Dr. Groves. Given patient was unable to extend at the knee knee immobilizer was not an option. A posterior long-leg splint with stirrup was placed and
outpatient orthopedics was recommended. Admission was recommended however patient was adamant to go home and not to a rehab facility at that time
Repeat x-ray noted. Fracture is healing.
Ortho eval appreciated
-maintin NWB LLE in splint
-splint may be taken down for daily skin chekcs and then reapplied
-Repeat Lt Knee X-rays in 4 wks (scripts to be provided on discharge results to be forwarded to Orthopedic), outpt follow up
# Obesity per BMI
# Microscopic hematuria-repeat as outpatient
# Chronic ambulatory dysfunction-states that he has not walked for the past year and a half. Uncooperative with PT/OT eval
# Hypoalbuminemia
# Ex-smoker
# DVT prophylaxis-subcutaneous Lovenox
# CODE STATUS-full code
Discussed with patient's nephew customer contact sales associate Adam
I spent a total of 45 minutes with the patient or on the floor. More than 50% of this time involved counseling and coordination of care.
Anticipated Discharge: 24 - 48 hours
Subjective/Interval History
-
Date of Service: July 29, 2024
No acute distress resting comfortably in bed. Coughing improved. Stable respiratory status on room air.
Objective Data
-
Labs:
Laboratory Results
07/29/24
06:00
WBC Pending
Hgb Pending
Hct Pending
Plt Count Pending
Sodium Pending
Potassium Pending
Chloride Pending
Carbon Dioxide Pending
BUN Pending
Creatinine Pending
Glucose Pending
Calcium Pending
Vital Signs:
Vital Signs
Temp Pulse Resp BP Pulse Ox
97.7 F 63 16 134/78 94
07/28/24 23:00 07/28/24 23:00 07/28/24 23:00 07/28/24 23:00 07/28/24 23:00
I&O
07/28/24 07/29/24 07/30/24
06:59 06:59 06:59
Intake Total 840 / 840 900 / 900
Output Total 1175 / 1175 1390 / 1390
Balance -335 / -335 -490 / -490
[2024-07-29] MEDS: MYCOSTATIN CREAM TOPICAL ×2 (08:14→20:46)
[2024-07-29] MEDS: DESENEX/MITRAZOL/ZEASORB TOPICAL (08:14)
[2024-07-29] MEDS: ProAmatine PO ×3 (08:14→17:13)
[2024-07-29] MEDS: NOVOLOG FLEXPEN-LOW RESISTANCE SC ×2 (08:15→12:08)
[2024-07-29 08:16] LABS: Glucose - Point of Care 94 mg/dl (70-99)
[2024-07-29] MEDS: MIRALAX PO (08:17)
[2024-07-29] MEDS: SENOKOT-S PO ×2 (08:17→20:46)
[2024-07-29] MEDS: SENOKOT PO ×2 (08:17→20:46)
[2024-07-29] MEDS: VITAMIN B-12 1000 MCG PO (08:19)
[2024-07-29] MEDS: LIPITOR 20 MG PO (08:19)
[2024-07-29] MEDS: LOW STRENGTH ASPIRIN 81 MG PO (08:19)
[2024-07-29] MEDS: GLUCOPHAGE 1000 MG PO (08:19)
[2024-07-29] MEDS: VITAMIN D3 (cholecalciferol) 50 MCG PO (08:19)
[2024-07-29] MEDS: DILAUDID 1 MG IV ×3 (08:19→20:40)
[2024-07-29] MEDS: HYDROPHOR 1 APPLIC TOPICAL (08:20)
[2024-07-29] MEDS: MUCINEX 600 MG PO ×2 (08:20→20:46)
[2024-07-29 09:32] LABS: Hematocrit 26.7 % (39.0-52.0); Hemoglobin 8.5 g/dL (13.0-18.0); Mean Corp Hgb Conc. 31.8 g/dL (33.0-37.0); Mean Corpuscular Hgb 24.6 pg (27.0-31.0); Mean Corpuscular Volume 77.4 fL (80.0-94.0); Mean Platelet Volume 9.6 fL (7.4-10.4); Platelet Count 641 10^3/uL (130-400); Red Blood Cell Count 3.45 10^6/uL (4.70-6.10); White Blood Cell Count 14.7 10^3/uL (4.8-10.8)
[2024-07-29 09:34] LABS: Blood Urea Nitrogen 16 mg/dl (9-20); Calcium 7.8 mg/dl (8.4-10.2); Carbon Dioxide 31 mmol/L (22-30); Chloride 95 mmol/L (98-107); Estimated Creatinine Clearance > 125 ml/min; Glucose 87 mg/dl (70-99); Magnesium 1.8 mg/dl (1.6-2.3); Phosphorus 2.8 mg/dl (2.5-4.5); Potassium 4.2 mmol/L (3.5-5.1); Sodium 134 mmol/L (135-145); eGFR > 60.00
[2024-07-29 11:30] VITALS: BP 120/57
--- NOTE | 2024-07-29 11:51 | W.PN.ID1 ---
Date of Service
Date of Service: July 29, 2024
Today's Communication
Continue cefazolin.
Assessment / Plan
Severe right lower extremity cellulitis
Marked leukocytosis
Severe right lower extremity pain
Elevated CK
Tobacco abuse
CAD
HTN
DM
COPD
Dyslipidemia
Chronic bilateral lower extremity lymphedema
Recommendations:
Overall, improvement in the degree of cellulitis.
Continue lower extremity compression with light application of Ronan wrap's.
Leukocytosis trending down.
Continue cefazolin
Continue to monitor white count and temperature curve.
Lower extremity elevation as is possible. Leg is somewhat contracted; patient reports that it has been that way for at least the past year or so and cannot be extended.
����������������������������������������������������������
Chief Complaint
-: Leukocytosis and Cellulitis (Right lower extremity)
Subjective / Review of Systems
Leg not as painful.
Vital Signs / Physical Exam
Vital Signs
Vital Signs
Temp Pulse Resp BP Pulse Ox
98.0 F 97 16 120/57 93
07/29/24 11:30 07/29/24 11:30 07/29/24 11:30 07/29/24 11:30 07/29/24 11:30
Physical Exam
Constitutional: Acutely Ill and Chronically Ill
Cardiovascular: S1/S2
Pulmonary: Clear (anteriorly)
Gastrointestinal: Non Tender
Extremities: Edema (Right lower extremity) and Erythema (right lower extremity. decreasing erythema foot to up the bernard, mildly warm, skin dry)
Musculoskeletal: Other (Left leg splinted and wrapped in Ronan wrap.)
Neurological: Awake and Alert
Psychological: Calm
Objective Data
Lab Data
Lab Results
07/29/24 08:40
07/29/24 08:40
Estimated Creat Clear > 125 ml/min 07/29/24 08:40
Lactic Acid Cancelled 07/22/24 03:57
Total Bilirubin 0.5 mg/dl (0.2-1.3) 07/27/24 09:14
AST 33 U/L (17-59) 07/27/24 09:14
ALT < 10 U/L (0-50) 07/27/24 09:14
Alkaline Phosphatase 213 U/L (38-126) H 07/27/24 09:14
Most recent labs reviewed.
Micro Results:
07/22/24 00:28 Blood Culture - Final
Blood/Venous No Growth - Final Report
07/22/24 00:28 Blood Culture - Final
Blood/Venous No Growth - Final Report
07/22/24 00:28 Urine Culture - Final
Urine
07/22/24 18:26 Influenza Types A & B (GALINDO) - Final
Nasal Swab Negative for Influenza A & B, NAAT
Negative results must be combined with clinical observations
and patient history.
Nucleic Acid Amplification test (NAAT)performed on the
[employer] platform.
Imaging:
07/22/2024 CT lower extremity with IV contrast: There is extensive edema in the subcutaneous tissues and musculature of the right foot, right lower leg and distal right thigh with overlying skin thickening. No confined or enhancing fluid collections
to suggest the presence of abscess. A right hip replacement is in satisfactory position. An intramedullary kathy in the mid and distal femoral diaphysis is traversed distally by 3 metallic screws. Please see full dictation for additional detail.
07/22/2024 Duplex ultrasound right lower extremity: Limited examination secondary to patient curled in position. Calf veins could not be assessed. No evidence of femoral/popliteal deep venous thrombosis. Please see full dictation for
additional detail.
07/22/2024 CT chest (PE study): No evidence of pulmonary embolism. Small right and trace left pleural effusion. Minor atelectasis noted. No evidence of pneumonia. Emphysematous changes noted.
[2024-07-29 12:08] LABS: Glucose - Point of Care 100 mg/dl (70-99)
[2024-07-29] MEDS: FERRLECIT 110 MG IV (13:26)
[2024-07-29 15:05] VITALS: BP 121/61
[2024-07-29 16:55] LABS: Glucose - Point of Care 176 mg/dl (70-99)
[2024-07-29] MEDS: GLUCOPHAGE PO ×2 (17:27→17:32)
[2024-07-29] MEDS: NOVOLOG FLEXPEN-LOW RESISTANCE 1 UNITS SC (17:27)
[2024-07-29] MEDS: LOVENOX 40 MG SC (17:27)
[2024-07-29 19:00] VITALS: BP 120/72
[2024-07-29] MEDS: DESENEX/MITRAZOL/ZEASORB 1 APPLIC TOPICAL (20:45)
[2024-07-29 21:18] LABS: Glucose - Point of Care 121 mg/dl (70-99)
[2024-07-29 23:00] VITALS: BP 130/57
[2024-07-30] MEDS: DILAUDID 1 MG IV ×2 (00:41→22:55)
[2024-07-30 03:00] VITALS: BP 135/70
[2024-07-30] MEDS: ANCEF 10 IV ×3 (03:08→20:30)
[2024-07-30] MEDS: ROXICODONE 5 MG PO ×3 (03:08→20:30)
[2024-07-30 06:00] VITALS: BMI 25.1
[2024-07-30 07:47] VITALS: BP 137/72
[2024-07-30] MEDS: SENOKOT-S PO ×2 (07:48→20:31)
[2024-07-30] MEDS: ProAmatine PO ×2 (07:48→17:25)
[2024-07-30] MEDS: MIRALAX PO (07:49)
[2024-07-30] MEDS: SENOKOT PO ×2 (07:49→20:31)
[2024-07-30] MEDS: MYCOSTATIN CREAM TOPICAL ×2 (07:49→20:31)
--- NOTE | 2024-07-30 07:50 | W.PN.HOSP.TC ---
Today's Communication/Plan
-
cont abx as per ID
mucinex, robitussin prn
pain control
NWB LLE maintain splint
IV iron supplementation
IVF bolus
midodrine switched to prn
oxygen prn
encourage Incentive spirometer use as possible
Assessment / Plan
Assessment / Plan
Physical Exam
General: no acute distress
HEENT: normocephalic atraumatic moist mucous membrane:
Pulm: clear to auscultation b/l
Cardio: S1/S2 no murmurs rubs gallops
Abd: soft nontender bowel sounds present
Ext: RLE erythema edema LLE leg-immobilizer
Neuro: AOx3
68M NIDDM Chronic Lymphedema HLD Smoking Obesity LLE proximal Tibia Fx
Chest y-eaz-dkeyjq opacity at each lung base right greater than left may represent subsegmental atelectasis or pneumonia findings suggestive of COPD
CT of the chest-PE study-no PE small right and trace left pleural effusion, atelectasis, COPD
Echo 1 98-79-phghdf LV size and systolic function. EF 55%. No obvious regional wall motion abnormalities. Mild concentric LVH. Normal RV size and function.
# Right lower extremity cellulitis possibly secondary to chronic lymphedema right heel wound and diabetes
Cellulitis was severe and moderately extensive with sepsis present on admission
Right heel DTI-present on admission
Blood cultures negative
Ultrasound with no femoral-popliteal DVT, calf veins could not be assessed
Continue IV Ancef . Off clindamycin Vancomycin
Right lower extremity CT did not show any evidence of soft tissue infection with abscess or fasciitis
Pain control
General Surgery was consulted and signed off
Infectious disease following-appreciated
# Hypotension secondary to hypovolemia- resolved
BP since significantly improved
Midodrine consistently held d/t elevated pressures, changed to prn.
Consider IVF bolus prn
# Constipation-resolved
# Acute hypoxic respiratory insufficiency-likely secondary to pain and atelectasis
#Coughing
Continue incentive spirometry
CXR noted.
Speech eval appreciated-no aspiration
Mucinex, Robitussin prn
Intermittently requiring oxygen supplementation, likely atelectasis not compliant with incentive spirometer/PT/OT
CXR repeated noted stable mild right lower lobe pneumonia vs atelectasis (suspect most likely atelectasis given currently on abx with white count improving and patient's intermittent persistent refusal of services/assessments/therapy throughout
hospitalization)
# Diabetes-hemoglobin A1c 7
cont home Metformin
Accu-Cheks and sliding scale coverage
# Mild Hyponatremia
monitor
# Anemia
#Iron Deficiency Anemia with likely component Anemia of Chronic Disease.
IV iron supplementation started 07/28/24
replace low normal B12.
# Vitamin D deficiency-replace
# Hypokalemia-resolved
# Hyperlipidemia-continue atorvastatin
# Chronic lymphedema lower extremity
# Fungal rash-continue topical antifungal
# Coronary artery disease per history-continue aspirin and statin
# Chronic hypercapnic respiratory failure/CO2 narcosis-suspected sleep apnea/COPD-needs to follow-up with pulmonary
# Proximal tibial fracture noted on x-ray 07-06-24-was seen in the ER and case discussed with Dr. Groves. Given patient was unable to extend at the knee knee immobilizer was not an option. A posterior long-leg splint with stirrup was placed and
outpatient orthopedics was recommended. Admission was recommended however patient was adamant to go home and not to a rehab facility at that time
Repeat x-ray noted. Fracture is healing.
Ortho eval appreciated
-maintin NWB LLE in splint
-splint may be taken down for daily skin chekcs and then reapplied
-Repeat Lt Knee X-rays in 4 wks (scripts to be provided on discharge results to be forwarded to Orthopedic), outpt follow up
# Obesity per BMI
# Microscopic hematuria-repeat as outpatient
# Chronic ambulatory dysfunction-states that he has not walked for the past year and a half. Uncooperative/combative with PT/OT eval
# Hypoalbuminemia
# Ex-smoker
# DVT prophylaxis-subcutaneous Lovenox
# CODE STATUS-full code
Discussed with patient's nephew patient transport orderly Adam, potentially may be able to help with patient's compliance with assessments/treatments/PT OT therapy. However, due to work, Wednesday08/01/24 is the earliest nephew can be available at patient's
bedside during the day. PT/OT will need to be re-ordered if it is clear that patient is willing to comply (ideally with nephew present during evaluation as patient is adamant regarding go home with nephew when stable for discharge).
I spent a total of 50 minutes with the patient or on the floor. More than 50% of this time involved counseling and coordination of care.
Anticipated Discharge: 24 - 48 hours
Subjective/Interval History
-
Date of Service: July 30, 2024
back on 2L. intermittently refusing assessments, including pulse ox re-checks as noted in patient care note.
Objective Data
-
Labs:
Laboratory Results
07/30/24
06:31
WBC Pending
Hgb Pending
Hct Pending
Plt Count Pending
Sodium Pending
Potassium Pending
Chloride Pending
Carbon Dioxide Pending
BUN Pending
Creatinine Pending
Glucose Pending
Calcium Pending
Vital Signs:
Vital Signs
Temp Pulse Resp BP Pulse Ox
98.4 F 93 18 137/72 91
07/30/24 07:47 07/30/24 07:47 07/30/24 07:47 07/30/24 07:47 07/30/24 07:47
I&O
07/29/24 07/30/24 07/31/24
06:59 06:59 06:59
Intake Total 900 / 900 1200 / 1200
Output Total 1390 / 1390 520 / 520
Balance -490 / -490 680 / 680
[2024-07-30 08:04] LABS: Glucose - Point of Care 129 mg/dl (70-99)
[2024-07-30] MEDS: NOVOLOG FLEXPEN-LOW RESISTANCE SC (08:10)
[2024-07-30] MEDS: VITAMIN D3 (cholecalciferol) 50 MCG PO (08:12)
[2024-07-30] MEDS: VITAMIN B-12 1000 MCG PO (08:12)
[2024-07-30] MEDS: MUCINEX 600 MG PO ×2 (08:12→20:30)
[2024-07-30] MEDS: LOW STRENGTH ASPIRIN 81 MG PO (08:12)
[2024-07-30] MEDS: LIPITOR 20 MG PO (08:12)
[2024-07-30] MEDS: GLUCOPHAGE 1000 MG PO ×2 (08:12→17:24)
[2024-07-30] MEDS: HYDROPHOR 1 APPLIC TOPICAL (08:13)
[2024-07-30] MEDS: DESENEX/MITRAZOL/ZEASORB 1 APPLIC TOPICAL ×2 (08:13→20:30)
[2024-07-30 08:23] LABS: Hematocrit 26.7 % (39.0-52.0); Hemoglobin 8.2 g/dL (13.0-18.0); Mean Corp Hgb Conc. 30.7 g/dL (33.0-37.0); Mean Corpuscular Hgb 24.4 pg (27.0-31.0); Mean Corpuscular Volume 79.5 fL (80.0-94.0); Mean Platelet Volume 9.9 fL (7.4-10.4); Platelet Count 669 10^3/uL (130-400); Red Blood Cell Count 3.36 10^6/uL (4.70-6.10); Red Cell Dist. Width 18.1 % (11.5-14.5); White Blood Cell Count 11.5 10^3/uL (4.8-10.8)
[2024-07-30 08:33] LABS: Blood Urea Nitrogen 16 mg/dl (9-20); Calcium 7.6 mg/dl (8.4-10.2); Carbon Dioxide 34 mmol/L (22-30); Chloride 95 mmol/L (98-107); Estimated Creatinine Clearance 103 ml/min; Glucose 106 mg/dl (70-99); Magnesium 1.9 mg/dl (1.6-2.3); Potassium 4.2 mmol/L (3.5-5.1); Sodium 134 mmol/L (135-145); eGFR > 60.00
--- NOTE | 2024-07-30 10:38 | W.PN.ID1 ---
Date of Service
Date of Service: July 30, 2024
Today's Communication
Continue cefazolin.
Assessment / Plan
Severe right lower extremity cellulitis
Marked leukocytosis resolving
Severe right lower extremity pain
Elevated CK
Tobacco abuse
CAD
HTN
DM
COPD
Dyslipidemia
Chronic bilateral lower extremity lymphedema
Recommendations:
Cellulitis improving
Continue lower extremity compression with light application of Ronan wrap's.
Leukocytosis trending down.
Continue cefazolin
Continue to monitor white count and temperature curve.
Lower extremity elevation as is possible. Leg is somewhat contracted; patient reports that it has been that way for at least the past year or so and cannot be extended.
����������������������������������������������������������
Chief Complaint
-: Leukocytosis and Cellulitis (Right lower extremity)
Vital Signs / Physical Exam
Vital Signs
Vital Signs
Temp Pulse Resp BP Pulse Ox
98.4 F 93 18 137/72 91
07/30/24 07:47 07/30/24 07:47 07/30/24 07:47 07/30/24 07:47 07/30/24 08:00
Physical Exam
Constitutional: Acutely Ill and Chronically Ill
Cardiovascular: S1/S2
Pulmonary: Clear (anteriorly)
Gastrointestinal: Non Tender
Extremities: Edema (Right lower extremity decreasing) and Erythema (right lower extremity - decreasing erythema )
Musculoskeletal: Other (Left leg splinted and wrapped in Ronan wrap.)
Neurological: Awake and Alert
Objective Data
Lab Data
Lab Results
07/30/24 06:31
07/30/24 06:31
Estimated Creat Clear 103 ml/min 07/30/24 06:31
Lactic Acid Cancelled 07/22/24 03:57
Total Bilirubin 0.5 mg/dl (0.2-1.3) 07/27/24 09:14
AST 33 U/L (17-59) 07/27/24 09:14
ALT < 10 U/L (0-50) 07/27/24 09:14
Alkaline Phosphatase 213 U/L (38-126) H 07/27/24 09:14
Most recent labs reviewed.
Micro Results:
07/22/24 00:28 Blood Culture - Final
Blood/Venous No Growth - Final Report
07/22/24 00:28 Blood Culture - Final
Blood/Venous No Growth - Final Report
07/22/24 00:28 Urine Culture - Final
Urine
07/22/24 18:26 Influenza Types A & B (GALINDO) - Final
Nasal Swab Negative for Influenza A & B, NAAT
Negative results must be combined with clinical observations
and patient history.
Nucleic Acid Amplification test (NAAT)performed on the
[employer] platform.
Imaging:
07/22/2024 CT lower extremity with IV contrast: There is extensive edema in the subcutaneous tissues and musculature of the right foot, right lower leg and distal right thigh with overlying skin thickening. No confined or enhancing fluid collections
to suggest the presence of abscess. A right hip replacement is in satisfactory position. An intramedullary kathy in the mid and distal femoral diaphysis is traversed distally by 3 metallic screws. Please see full dictation for additional detail.
07/22/2024 Duplex ultrasound right lower extremity: Limited examination secondary to patient curled in position. Calf veins could not be assessed. No evidence of femoral/popliteal deep venous thrombosis. Please see full dictation for
additional detail.
07/22/2024 CT chest (PE study): No evidence of pulmonary embolism. Small right and trace left pleural effusion. Minor atelectasis noted. No evidence of pneumonia. Emphysematous changes noted.
[2024-07-30 11:47] LABS: Glucose - Point of Care 170 mg/dl (70-99)
[2024-07-30 11:48] VITALS: BP 91/53
[2024-07-30] MEDS: ProAmatine 5 MG PO (11:51)
[2024-07-30] MEDS: NOVOLOG FLEXPEN-LOW RESISTANCE 1 UNITS SC ×2 (11:51→17:25)
[2024-07-30] MEDS: NSS 250 IV (12:19)
--- NOTE | 2024-07-30 13:15 | PTCARENOTE ---
Pt's BP 91/53, SpO2 88% on RA, and c/o SOB. Scheduled midodrine given, elevated HOB, placed on 2L NC. Pt refused recheck of SpO2, stating 'just leave me alone'. MD aware, 250cc bolus and CXR ordered. Pt agreeable to both. Plan of care ongoing.
--- NOTE | 2024-07-30 13:19 | VATNOTE ---
pt refused IV check this am. wishes honored.
[2024-07-30] MEDS: FERRLECIT 110 MG IV (13:31)
[2024-07-30 15:28] VITALS: BP 142/65
[2024-07-30 16:15] LABS: Glucose - Point of Care 198 mg/dl (70-99)
[2024-07-30] MEDS: LOVENOX 40 MG SC (17:25)
[2024-07-30] MEDS: ROBITUSSIN 200 MG PO (17:30)
[2024-07-30 19:31] VITALS: BP 121/61
[2024-07-30 21:21] LABS: Glucose - Point of Care 100 mg/dl (70-99)
[2024-07-30 23:18] VITALS: BP 126/89
[2024-07-31] MEDS: ROXICODONE 5 MG PO ×4 (00:32→21:43)
[2024-07-31 03:03] VITALS: BP 102/49
[2024-07-31] MEDS: ANCEF 10 IV ×3 (03:20→20:35)
[2024-07-31 06:00] VITALS: BMI 24.7
[2024-07-31 07:41] VITALS: BP 152/81
[2024-07-31 07:59] LABS: Glucose - Point of Care 128 mg/dl (70-99)
[2024-07-31] MEDS: NOVOLOG FLEXPEN-LOW RESISTANCE SC (09:10)
[2024-07-31] MEDS: MIRALAX PO (09:11)
[2024-07-31] MEDS: SENOKOT-S PO ×2 (09:11→20:36)
[2024-07-31] MEDS: GLUCOPHAGE 1000 MG PO ×2 (09:12→17:10)
[2024-07-31] MEDS: LIPITOR 20 MG PO (09:12)
[2024-07-31] MEDS: VITAMIN D3 (cholecalciferol) 50 MCG PO (09:12)
[2024-07-31] MEDS: MUCINEX 600 MG PO ×2 (09:12→20:36)
[2024-07-31] MEDS: LOW STRENGTH ASPIRIN 81 MG PO (09:12)
[2024-07-31] MEDS: DESENEX/MITRAZOL/ZEASORB 1 APPLIC TOPICAL ×2 (09:14→20:39)
[2024-07-31] MEDS: HYDROPHOR 1 APPLIC TOPICAL (09:14)
[2024-07-31] MEDS: SENOKOT PO ×2 (09:15→20:36)
[2024-07-31] MEDS: VITAMIN B-12 1000 MCG PO (09:15)
[2024-07-31] MEDS: MYCOSTATIN CREAM TOPICAL ×2 (09:15→20:36)
[2024-07-31 10:41] LABS: Hematocrit 27.1 % (39.0-52.0); Hemoglobin 8.2 g/dL (13.0-18.0); Mean Corp Hgb Conc. 30.3 g/dL (33.0-37.0); Mean Corpuscular Volume 79.5 fL (80.0-94.0); Mean Platelet Volume 9.4 fL (7.4-10.4); Platelet Count 741 10^3/uL (130-400); Red Blood Cell Count 3.41 10^6/uL (4.70-6.10); Red Cell Dist. Width 17.9 % (11.5-14.5); White Blood Cell Count 9.5 10^3/uL (4.8-10.8)
[2024-07-31] MEDS: DILAUDID 1 MG IV (10:52)
[2024-07-31 11:03] LABS: ALT (SGPT) < 10 U/L (0-50); AST (SGOT) 32 U/L (17-59); Albumin 2.5 g/dl (3.5-5.0); Alkaline Phosphatase 163 U/L (38-126); Blood Urea Nitrogen 13 mg/dl (9-20); Calcium 7.9 mg/dl (8.4-10.2); Carbon Dioxide 35 mmol/L (22-30); Chloride 94 mmol/L (98-107); Direct Bilirubin 0.2 mg/dl (0.0-0.4); Estimated Creatinine Clearance > 125 ml/min; Glucose 157 mg/dl (70-99); Phosphorus 2.9 mg/dl (2.5-4.5); Potassium 4.4 mmol/L (3.5-5.1); Sodium 134 mmol/L (135-145); Total Bilirubin 0.3 mg/dl (0.2-1.3); Total Protein 5.6 g/dl (6.3-8.2); eGFR > 60.00
[2024-07-31 11:04] VITALS: BP 127/63
[2024-07-31 11:17] LABS: Glucose - Point of Care 178 mg/dl (70-99)
[2024-07-31] MEDS: NOVOLOG FLEXPEN-LOW RESISTANCE 1 UNITS SC (12:25)
--- NOTE | 2024-07-31 12:51 | W.PN.HOSP.TC ---
Today's Communication/Plan
-
PT/OT with nephew presence
IV abx
Assessment / Plan
Assessment / Plan
Physical Exam
General: no acute distress
HEENT: normocephalic atraumatic moist mucous membrane:
Pulm: clear to auscultation b/l
Cardio: S1/S2 no murmurs rubs gallops
Abd: soft nontender bowel sounds present
Ext: RLE erythema edema LLE leg-immobilizer
Neuro: AOx3
68M NIDDM Chronic Lymphedema HLD Smoking Obesity LLE proximal Tibia Fx
Chest t-qeb-muizby opacity at each lung base right greater than left may represent subsegmental atelectasis or pneumonia findings suggestive of COPD
CT of the chest-PE study-no PE small right and trace left pleural effusion, atelectasis, COPD
Echo 1 72-54-pyuwbd LV size and systolic function. EF 55%. No obvious regional wall motion abnormalities. Mild concentric LVH. Normal RV size and function.
# Right lower extremity cellulitis possibly secondary to chronic lymphedema right heel wound and diabetes
Cellulitis was severe and moderately extensive with sepsis present on admission
Right heel DTI-present on admission
Blood cultures negative
Ultrasound with no femoral-popliteal DVT, calf veins could not be assessed
Continue IV Ancef . Off clindamycin Vancomycin
Right lower extremity CT did not show any evidence of soft tissue infection with abscess or fasciitis
Pain control
General Surgery was consulted and signed off
Infectious disease following-appreciated
# Hypotension secondary to hypovolemia- resolved
BP since significantly improved
Midodrine consistently held d/t elevated pressures, changed to prn.
Consider IVF bolus prn
# Constipation-resolved
# Acute hypoxic respiratory insufficiency-likely secondary to pain and atelectasis
#Coughing
Continue incentive spirometry
CXR noted.
Speech eval appreciated-no aspiration
Mucinex, Robitussin prn
Intermittently requiring oxygen supplementation, likely atelectasis not compliant with incentive spirometer/PT/OT
CXR repeated noted stable mild right lower lobe pneumonia vs atelectasis (suspect most likely atelectasis given currently on abx with white count improving and patient's intermittent persistent refusal of services/assessments/therapy throughout
hospitalization)
# Diabetes-hemoglobin A1c 7
cont home Metformin
Accu-Cheks and sliding scale coverage
# Mild Hyponatremia
monitor
# Anemia
#Iron Deficiency Anemia with likely component Anemia of Chronic Disease.
IV iron supplementation started 07/28/24
replace low normal B12.
# Vitamin D deficiency-replace
# Hypokalemia-resolved
# Hyperlipidemia-continue atorvastatin
# Chronic lymphedema lower extremity
# Fungal rash-continue topical antifungal
# Coronary artery disease per history-continue aspirin and statin
# Chronic hypercapnic respiratory failure/CO2 narcosis-suspected sleep apnea/COPD-needs to follow-up with pulmonary
# Proximal tibial fracture noted on x-ray 07-06-24-was seen in the ER and case discussed with Dr. Groves. Given patient was unable to extend at the knee knee immobilizer was not an option. A posterior long-leg splint with stirrup was placed and
outpatient orthopedics was recommended. Admission was recommended however patient was adamant to go home and not to a rehab facility at that time
Repeat x-ray noted. Fracture is healing.
Ortho eval appreciated
-maintin NWB LLE in splint
-splint may be taken down for daily skin chekcs and then reapplied
-Repeat Lt Knee X-rays in 4 wks (scripts to be provided on discharge results to be forwarded to Orthopedic), outpt follow up
# Obesity per BMI
# Microscopic hematuria-repeat as outpatient
# Chronic ambulatory dysfunction-states that he has not walked for the past year and a half. Uncooperative/combative with PT/OT eval
# Hypoalbuminemia
# Ex-smoker
# DVT prophylaxis-subcutaneous Lovenox
# CODE STATUS-full code
Dr. CAAL - Discussed with patient's nephew property worker Adam, potentially may be able to help with patient's compliance with assessments/treatments/PT OT therapy. However, due to work, Wednesday08/01/24 is the earliest nephew can be available at
patient's bedside during the day. PT/OT will need to be re-ordered if it is clear that patient is willing to comply (ideally with nephew present during evaluation as patient is adamant regarding go home with nephew when stable for discharge).
Anticipated Discharge: Within 24 hours
Subjective/Interval History
-
Date of Service: July 31, 2024
states his nephew is coming tonight or tomm
Objective Data
-
Labs:
Laboratory Results
07/31/24
10:32
WBC 9.5
Hgb 8.2 L
Hct 27.1 L
Plt Count 741 H
Sodium 134 L
Potassium 4.4
Chloride 94 L
Carbon Dioxide 35 H
BUN 13
Creatinine 0.6 L
Glucose 157 H
Calcium 7.9 L
Total Bilirubin 0.3
AST 32
ALT < 10
Alkaline Phosphatase 163 H
Vital Signs:
Vital Signs
Temp Pulse Resp BP Pulse Ox
98.8 F 82 20 127/63 97
07/31/24 11:04 07/31/24 11:04 07/31/24 11:04 07/31/24 11:04 07/31/24 11:04
I&O
07/30/24 07/31/24 08/01/24
06:59 06:59 06:59
Intake Total 1200 / 1200 490 / 490
Output Total 520 / 520 350 / 350
Balance 680 / 680 140 / 140
[2024-07-31] MEDS: FERRLECIT 110 MG IV (14:12)
[2024-07-31 15:17] VITALS: BP 147/65
[2024-07-31 16:20] LABS: Glucose - Point of Care 201 mg/dl (70-99)
--- NOTE | 2024-07-31 16:22 | W.PN.ID1 ---
Date of Service
Date of Service: July 31, 2024
Today's Communication
Continue antibiotics.
Assessment / Plan
Severe right lower extremity cellulitis
- improved
Marked leukocytosis resolving
Severe right lower extremity pain
Elevated CK
Tobacco abuse
CAD
HTN
DM
COPD
Dyslipidemia
Chronic bilateral lower extremity lymphedema
Recommendations:
Cellulitis improving
Continue lower extremity compression with light application of Ronan wrap's.
Leukocytosis trending down.
Continue cefazolin. May be able to transition to oral Keflex in the next 24 hours.
Continue to monitor white count and temperature curve.
Lower extremity elevation as is possible. Leg is somewhat contracted; patient reports that it has been that way for at least the past year or so and cannot be extended.
����������������������������������������������������������
Chief Complaint
-: Leukocytosis and Cellulitis (Right lower extremity)
Subjective / Review of Systems
Patient seen and examined. Reports less pain in the leg.
Review of Systems: No Fever and No Chills
Vital Signs / Physical Exam
Vital Signs
Vital Signs
Temp Pulse Resp BP Pulse Ox
98.3 F 87 18 147/65 92
07/31/24 15:17 07/31/24 15:17 07/31/24 15:17 07/31/24 15:17 07/31/24 15:17
Physical Exam
Constitutional: Acutely Ill and Chronically Ill
Cardiovascular: S1/S2
Pulmonary: Clear (anteriorly)
Gastrointestinal: Non Tender
Extremities: Edema (Right lower extremity decreasing), Erythema (right lower extremity - decreasing erythema ) and Other (Decreased right lower extremity tenderness to palpation.)
Musculoskeletal: Other (Left leg splinted and wrapped in Ronan wrap.)
Neurological: Awake and Alert
Objective Data
Lab Data
Lab Results
07/31/24 10:32
07/31/24 10:32
Estimated Creat Clear > 125 ml/min 07/31/24 10:32
Lactic Acid Cancelled 07/22/24 03:57
Total Bilirubin 0.3 mg/dl (0.2-1.3) 07/31/24 10:32
AST 32 U/L (17-59) 07/31/24 10:32
ALT < 10 U/L (0-50) 07/31/24 10:32
Alkaline Phosphatase 163 U/L (38-126) H 07/31/24 10:32
Most recent labs reviewed.
Micro Results:
07/22/24 00:28 Blood Culture - Final
Blood/Venous No Growth - Final Report
07/22/24 00:28 Blood Culture - Final
Blood/Venous No Growth - Final Report
07/22/24 00:28 Urine Culture - Final
Urine
07/22/24 18:26 Influenza Types A & B (GALINDO) - Final
Nasal Swab Negative for Influenza A & B, NAAT
Negative results must be combined with clinical observations
and patient history.
Nucleic Acid Amplification test (NAAT)performed on the
[employer] platform.
Imaging:
07/22/2024 CT lower extremity with IV contrast: There is extensive edema in the subcutaneous tissues and musculature of the right foot, right lower leg and distal right thigh with overlying skin thickening. No confined or enhancing fluid collections
to suggest the presence of abscess. A right hip replacement is in satisfactory position. An intramedullary kathy in the mid and distal femoral diaphysis is traversed distally by 3 metallic screws. Please see full dictation for additional detail.
07/22/2024 Duplex ultrasound right lower extremity: Limited examination secondary to patient curled in position. Calf veins could not be assessed. No evidence of femoral/popliteal deep venous thrombosis. Please see full dictation for
additional detail.
07/22/2024 CT chest (PE study): No evidence of pulmonary embolism. Small right and trace left pleural effusion. Minor atelectasis noted. No evidence of pneumonia. Emphysematous changes noted.
[2024-07-31] MEDS: LOVENOX 40 MG SC (17:10)
[2024-07-31] MEDS: NOVOLOG FLEXPEN-LOW RESISTANCE 2 UNITS SC (17:10)
[2024-07-31 19:46] VITALS: BP 136/72
[2024-07-31 21:27] LABS: Glucose - Point of Care 90 mg/dl (70-99)
[2024-07-31 22:50] VITALS: BP 108/48
[2024-08-01 03:28] VITALS: BP 138/74
[2024-08-01] MEDS: ROXICODONE 5 MG PO (03:34)
[2024-08-01] MEDS: ANCEF 10 IV (03:35)
[2024-08-01 06:00] VITALS: BMI 25.1
[2024-08-01 07:09] LABS: Hematocrit 25.6 % (39.0-52.0); Hemoglobin 8.3 g/dL (13.0-18.0); Mean Corp Hgb Conc. 32.4 g/dL (33.0-37.0); Mean Corpuscular Hgb 25.2 pg (27.0-31.0); Mean Corpuscular Volume 77.6 fL (80.0-94.0); Mean Platelet Volume 9.5 fL (7.4-10.4); Platelet Count 749 10^3/uL (130-400); White Blood Cell Count 8.1 10^3/uL (4.8-10.8)
[2024-08-01 07:35] VITALS: BP 116/68
[2024-08-01 07:58] LABS: Glucose - Point of Care 127 mg/dl (70-99)
[2024-08-01] MEDS: NOVOLOG FLEXPEN-LOW RESISTANCE SC ×2 (08:07→11:19)
[2024-08-01] MEDS: VITAMIN D3 (cholecalciferol) 50 MCG PO (08:10)
[2024-08-01] MEDS: GLUCOPHAGE 1000 MG PO (08:10)
[2024-08-01] MEDS: SENOKOT 17.2 MG PO (08:10)
[2024-08-01] MEDS: VITAMIN B-12 1000 MCG PO (08:10)
[2024-08-01] MEDS: LOW STRENGTH ASPIRIN 81 MG PO (08:10)
[2024-08-01] MEDS: MUCINEX 600 MG PO (08:10)
[2024-08-01] MEDS: MYCOSTATIN CREAM 1 APPLIC TOPICAL (08:10)
[2024-08-01] MEDS: SENOKOT-S 1 TABLET PO (08:10)
[2024-08-01] MEDS: LIPITOR 20 MG PO (08:10)
[2024-08-01] MEDS: MIRALAX 17 GRAMS PO (08:11)
[2024-08-01] MEDS: HYDROPHOR 1 APPLIC TOPICAL (08:15)
[2024-08-01] MEDS: DESENEX/MITRAZOL/ZEASORB 1 APPLIC TOPICAL (08:15)
[2024-08-01 10:57] LABS: Blood Urea Nitrogen 14 mg/dl (9-20); Calcium 8.2 mg/dl (8.4-10.2); Carbon Dioxide 33 mmol/L (22-30); Chloride 95 mmol/L (98-107); Estimated Creatinine Clearance > 125 ml/min; Glucose 130 mg/dl (70-99); Potassium 4.8 mmol/L (3.5-5.1); Sodium 134 mmol/L (135-145); eGFR > 60.00
[2024-08-01 11:09] LABS: Glucose - Point of Care 119 mg/dl (70-99)
[2024-08-01] MEDS: ANCEF IV (11:19)
--- NOTE | 2024-08-01 13:14 | W.PN.HOSP.TC ---
Today's Communication/Plan
-
ID recs for abx
Assessment / Plan
Assessment / Plan
Physical Exam
General: no acute distress
HEENT: normocephalic atraumatic moist mucous membrane:
Pulm: clear to auscultation b/l
Cardio: S1/S2 no murmurs rubs gallops
Abd: soft nontender bowel sounds present
Ext: RLE erythema edema LLE pxp-nljipizklvx-jaeleipowwi improvement in erythema-compared to admission
Neuro: AOx3
68M NIDDM Chronic Lymphedema HLD Smoking Obesity LLE proximal Tibia Fx
Chest q-ydp-hpbucx opacity at each lung base right greater than left may represent subsegmental atelectasis or pneumonia findings suggestive of COPD
CT of the chest-PE study-no PE small right and trace left pleural effusion, atelectasis, COPD
Echo 1 90-82-khltdc LV size and systolic function. EF 55%. No obvious regional wall motion abnormalities. Mild concentric LVH. Normal RV size and function.
# Right lower extremity cellulitis possibly secondary to chronic lymphedema right heel wound and diabetes
Cellulitis was severe and moderately extensive with sepsis present on admission
Right heel DTI-present on admission
Blood cultures negative
Ultrasound with no femoral-popliteal DVT, calf veins could not be assessed
Continue IV Ancef . Off clindamycin Vancomycin
Right lower extremity CT did not show any evidence of soft tissue infection with abscess or fasciitis
Pain control
General Surgery was consulted and signed off
Infectious disease following-appreciated- ? po keflex. await ID recs
# Hypotension secondary to hypovolemia- resolved
BP since significantly improved
Midodrine consistently held d/t elevated pressures, changed to prn.
Consider IVF bolus prn
# Constipation-resolved
# Acute hypoxic respiratory insufficiency-likely secondary to pain and atelectasis
#Coughing
Continue incentive spirometry
CXR noted.
Speech eval appreciated-no aspiration
Mucinex, Robitussin prn
Intermittently requiring oxygen supplementation, likely atelectasis not compliant with incentive spirometer/PT/OT
CXR repeated noted stable mild right lower lobe pneumonia vs atelectasis (suspect most likely atelectasis given currently on abx with white count improving and patient's intermittent persistent refusal of services/assessments/therapy throughout
hospitalization)
# Diabetes-hemoglobin A1c 7
cont home Metformin
Accu-Cheks and sliding scale coverage
# Mild Hyponatremia
monitor
# Anemia
#Iron Deficiency Anemia with likely component Anemia of Chronic Disease.
IV iron supplementation started 07/28/24
replace low normal B12.
# Vitamin D deficiency-replace
# Hypokalemia-resolved
# Hyperlipidemia-continue atorvastatin
# Chronic lymphedema lower extremity
# Fungal rash-continue topical antifungal
# Coronary artery disease per history-continue aspirin and statin
# Chronic hypercapnic respiratory failure/CO2 narcosis-suspected sleep apnea/COPD-needs to follow-up with pulmonary
# Proximal tibial fracture noted on x-ray 07-06-24-was seen in the ER and case discussed with Dr. Groves. Given patient was unable to extend at the knee knee immobilizer was not an option. A posterior long-leg splint with stirrup was placed and
outpatient orthopedics was recommended. Admission was recommended however patient was adamant to go home and not to a rehab facility at that time
Repeat x-ray noted. Fracture is healing.
Ortho eval appreciated
-maintin NWB LLE in splint
-splint may be taken down for daily skin chekcs and then reapplied
-Repeat Lt Knee X-rays in 4 wks (scripts to be provided on discharge results to be forwarded to Orthopedic), outpt follow up
# Obesity per BMI
# Microscopic hematuria-repeat as outpatient
# Chronic ambulatory dysfunction-states that he has not walked for the past year and a half. Uncooperative/combative with PT/OT eval
# Hypoalbuminemia
# Ex-smoker
# DVT prophylaxis-subcutaneous Lovenox
# CODE STATUS-full code
Pt refusing any further PT/OT evaluation and wants to go home with VN. States Adam will help wtih care at home. Adamant against going to SNF. Pt has capacity to make decision. Await ID recs
More than 30 minutes spent in discharge including
Final examination of the patient
Summarizing hospital stay
Instructions for continuing care to all relevant caregivers
Preparation of discharge records, prescriptions, and referral forms
Total time spent (in minutes): 50
Anticipated Discharge: Today
Subjective/Interval History
-
Date of Service: August 01, 2024
refusing snf
wants to go home
Objective Data
-
Labs:
Laboratory Results
08/01/24 08/01/24
06:40 10:20
WBC 8.1
Hgb 8.3 L
Hct 25.6 L
Plt Count 749 H
Sodium Cancelled 134 L
Potassium Cancelled 4.8
Chloride Cancelled 95 L
Carbon Dioxide Cancelled 33 H
BUN Cancelled 14
Creatinine Cancelled 0.6 L
Glucose Cancelled 130 H
Calcium Cancelled 8.2 L
Vital Signs:
Vital Signs
Temp Pulse Resp BP Pulse Ox
97.8 F 82 20 116/68 98
08/01/24 07:35 08/01/24 07:35 08/01/24 07:35 08/01/24 07:35 08/01/24 08:10
I&O
07/31/24 08/01/24 08/02/24
06:59 06:59 06:59
Intake Total 490 / 490 240 / 240
Output Total 350 / 350 550 / 550
Balance 140 / 140 -310 / -310
[2024-08-01] MEDS: FERRLECIT IV (13:45)
--- NOTE | 2024-08-01 14:29 | W.PN.ID1 ---
Date of Service
Date of Service: August 01, 2024
Today's Communication
Transition to keflex
Assessment / Plan
Severe right lower extremity cellulitis
- improved
Marked leukocytosis resolving
Severe right lower extremity pain
Elevated CK
Tobacco abuse
CAD
HTN
DM
COPD
Dyslipidemia
Chronic bilateral lower extremity lymphedema
Recommendations:
Cellulitis improving
Continue lower extremity compression with light application of Ronan wrap's.
Leukocytosis trending down.
Transition to oral Keflex 500 mg QID for an additional 7 days.
Lower extremity elevation as is possible. Leg is somewhat contracted; patient reports that it has been that way for at least the past year or so and cannot be extended.
Offload heel. Will need to be followed by Podiatry closely.
����������������������������������������������������������
Chief Complaint
-: Leukocytosis and Cellulitis (Right lower extremity)
Subjective / Review of Systems
Review of Systems: No Fever and No Chills
Vital Signs / Physical Exam
Vital Signs
Vital Signs
Temp Pulse Resp BP Pulse Ox
97.8 F 82 20 116/68 98
08/01/24 07:35 08/01/24 07:35 08/01/24 07:35 08/01/24 07:35 08/01/24 08:10
Physical Exam
Constitutional: Comfortable, Chronically Ill and Non-toxic
Eyes: Sclera Anicteric
Cardiovascular: Regular Rate and S1/S2; Negative S3/S4
Pulmonary: Clear (anteriorly)
Gastrointestinal: Non Tender and Non Distended
Extremities: Edema (Right lower extremity decreasing), Erythema (right lower extremity - decreasing erythema ) and Other (Decreased right lower extremity tenderness to palpation.)
Musculoskeletal: Other (Left leg splinted and wrapped in Ronan wrap.)
Wound: Other (left heel with unstagable wound)
Neurological: Awake and Alert
Objective Data
Lab Data
Lab Results
08/01/24 06:40
08/01/24 10:20
Estimated Creat Clear > 125 ml/min 08/01/24 10:20
Lactic Acid Cancelled 07/22/24 03:57
Total Bilirubin 0.3 mg/dl (0.2-1.3) 07/31/24 10:32
AST 32 U/L (17-59) 07/31/24 10:32
ALT < 10 U/L (0-50) 07/31/24 10:32
Alkaline Phosphatase 163 U/L (38-126) H 07/31/24 10:32
Most recent labs reviewed.
Micro Results:
07/22/24 00:28 Blood Culture - Final
Blood/Venous No Growth - Final Report
07/22/24 00:28 Blood Culture - Final
Blood/Venous No Growth - Final Report
07/22/24 00:28 Urine Culture - Final
Urine
07/22/24 18:26 Influenza Types A & B (GALINDO) - Final
Nasal Swab Negative for Influenza A & B, NAAT
Negative results must be combined with clinical observations
and patient history.
Nucleic Acid Amplification test (NAAT)performed on the
[employer] platform.
Imaging:
07/22/2024 CT lower extremity with IV contrast: There is extensive edema in the subcutaneous tissues and musculature of the right foot, right lower leg and distal right thigh with overlying skin thickening. No confined or enhancing fluid collections
to suggest the presence of abscess. A right hip replacement is in satisfactory position. An intramedullary kathy in the mid and distal femoral diaphysis is traversed distally by 3 metallic screws. Please see full dictation for additional detail.
07/22/2024 Duplex ultrasound right lower extremity: Limited examination secondary to patient curled in position. Calf veins could not be assessed. No evidence of femoral/popliteal deep venous thrombosis. Please see full dictation for
additional detail.
07/22/2024 CT chest (PE study): No evidence of pulmonary embolism. Small right and trace left pleural effusion. Minor atelectasis noted. No evidence of pneumonia. Emphysematous changes noted.
Care Review
Plan reviewed with: Physician (Hospitalist.)
--- NOTE | 2024-08-01 14:59 | PTCARENOTE ---
Addendum entered by Darline Gaytan RN 08/01/24 15:06:
See Above pictures from current wound care.
Original Note:
08/01- As per ID, this RN took new pics with wound care and notified WOC RN for re-eval of Deep Tissue Wound of R-heal. See Wound Care Intervention for details of dressing change and condition of wound.
[2024-08-01 15:00] VITALS: BP 131/70
--- NOTE | 2024-08-01 16:12 | CM ---
Pt d/c home today
Spoke w/ pt's nephew, Adam, who declined VN services stating pt may refuse services since he was refusing PT in the hospital
IMM reviewed
Plan: Home; no needs
== END 2024-08-01 15:51 | disposition home or self-care (01) | DRG 872 ==
LOC: 4 WEST ACU 05:12
PROVIDERS: Emergency Medicine; Internal Medicine; ADMITTING PHYSICIAN Internal Medicine; ATTENDING PHYSICIAN Hospitalist; CONSULT PHYSICIAN Internal Medicine Infectious Disease; CONSULT PHYSICIAN Surgery; EMERGENCY PHYSICIAN Emergency Medicine; FAMILY PHYSICIAN Family Medicine
DX: A41.9 Sepsis, unspecified organism (principal); E87.1 Hypo-osmolality and hyponatremia; S82.142A Displaced bicondylar fracture of left tibia, initial encounter for closed fracture; G82.20 Paraplegia, unspecified; J98.11 Atelectasis; L03.115 Cellulitis of right lower limb; E78.00 Pure hypercholesterolemia, unspecified; I25.10 Atherosclerotic heart disease of native coronary artery without angina pectoris; E11.649 Type 2 diabetes mellitus with hypoglycemia without coma; I89.0 Lymphedema, not elsewhere classified; B36.9 Superficial mycosis, unspecified; F17.210 Nicotine dependence, cigarettes, uncomplicated; E11.65 Type 2 diabetes mellitus with hyperglycemia; E11.51 Type 2 diabetes mellitus with diabetic peripheral angiopathy without gangrene; J44.9 Chronic obstructive pulmonary disease, unspecified; R09.02 Hypoxemia; R06.89 Other abnormalities of breathing; E86.1 Hypovolemia; I95.9 Hypotension, unspecified; E87.6 Hypokalemia; E55.9 Vitamin D deficiency, unspecified; K59.00 Constipation, unspecified; L89.619 Pressure ulcer of right heel, unspecified stage; I10 Essential (primary) hypertension; Z11.52 Encounter for screening for COVID-19; W19.XXXA Unspecified fall, initial encounter; Z99.3 Dependence on wheelchair; Z96.641 Presence of right artificial hip joint; Z90.81 Acquired absence of spleen; Z79.899 Other long term (current) drug therapy; Z79.84 Long term (current) use of oral hypoglycemic drugs; Z79.82 Long term (current) use of aspirin
CPT/HCPCS: 71045; 71275; 73590; 73701; 80048; 80053; 80202; 81003; 81015; 82248; 82306; 82550; 82553; 82607; 82728; 82962; 83036; 83540; 83550; 83605; 83735; 84100; 85025; 85027; 87040; 87086; 87502; 87811; 92610; 93005; 93306; 93971; 94640; 96361; 96365; 96366; 96367; 96375; 96376; 99285; J2916; Q9967